=== PATIENT | male | born 1945 | race Caucasian/White ===

== ENCOUNTER 2017-06-08 07:26 | Inpatient (IN) ==
[2017-06-08] MEDS: 0.9 % Sodium Chloride 1,000 ML IVC SCH (07:54)
[2017-06-08] MEDS ORDERED: *HR* Heparin 10,000 UNIT/10 ML VIAL ONE (08:04)
[2017-06-08] MEDS ORDERED: Heparin 1,000 UNITS/500 mL NS 500 ML ONE (08:05)
[2017-06-08] MEDS ORDERED: Nitroglycerin 1,000 MCG/10 ML VIAL IV ONE (08:05)
[2017-06-08] MEDS ORDERED: 0.9 % Sodium Chloride 1,000 ML ONE (08:05)
[2017-06-08] MEDS ORDERED: *HR* Midazolam HCl 2 MG/2 ML VIAL ONE (09:17)
[2017-06-08] MEDS ORDERED: *HR* FentaNYL (PF) 100 MCG/2 ML VIAL ONE (09:17)
--- NOTE | 2017-06-08 09:22 | History & Physical Report ---
Date of Encounter: 06/08/17 Time of Encounter: 09:20 24 Hour HP Update - Instructions Instructions: If the History and Physical is less than 30 days old and was completed prior to A.M. admission and or procedure and has NOT been updated on calendar day of procedure please complete this update prior to performing procedure. - Update Patient reports changes in Medical Condition: No Changes in examination, assessment, or condition: No Changes in Medication: No Preop tests/diagnostics Reviewed: Yes Surgery Remains Indicated: Yes Consent for Planned Operative Procedure(s) Verified: Yes - Pre-Operative Checklist Preoperative Checklist Indicated: No Prophylactic Antibiotic Ordered: No Home Medications Include Beta Olivia: Yes Beta Olivia Taken Today (Day of Surgery): Yes Beta Olivia Taken Yesterday (Day Prior to Surgery): Yes Is VTE Prophylaxis Indicated?: NO
--- NOTE | 2017-06-08 09:22 | Pre-Sedation Evaluation ---
Pre-sedation evaluation - Pre-sedation checklist Date of procedure: 06/08/17 Procedure: left heart cath Recent Vitals: Last Vital Signs Temp 97.6 F 06/08/17 07:39 Pulse 87 06/08/17 07:39 Resp 18 06/08/17 07:39 BP 132/83 06/08/17 07:39 Pulse Ox 98 06/08/17 07:39 H&P (including ROS) documented in medical record: Yes Previous reaction to sedatives/anesthetics: No Dietary Status: NPO after Midnight Airway Assessment: Patient can open mouth completely, TMJ function normal, Micrognathia (under-bite, receding chin) absent, Neck with adequate range of motion Dentition: No loose teeth or bridges Possible difficult airway: No ASA Classification *see protocol: CLASS II-Mild systemic disease Plan of Care: Pt appropriate candidate for procedure/moderate/conscious sedation , Risks/benefits of procedure/sedation discussed w/ patient/family
[2017-06-08] MEDS ORDERED: Acetaminophen 325 MG TABLET PO PRN (10:18)
[2017-06-08] MEDS ORDERED: Nitroglycerin 0.4 MG TAB.SUBL SL PRN (10:18)
--- NOTE | 2017-06-08 11:03 | Cardiothoracic Consult Note ---
Date of Encounter: 06/08/17 Time of Encounter: 10:58 Assessment and Plan (1) Coronary arteriosclerosis due to lipid rich plaque Current Visit: Yes Status: Acute The assessment and plan as outlined above was discussed with the patient and/or family members who expressed understanding and agreement. All questions were answered. The patient has left main disease and triple-vessel disease. He is also in new onset atrial fibrillation. He is a candidate for coronary artery bypass grafting and modified maze procedure with left atrial appendage stapling. Risks of surgery include , infection, stroke, bleeding, myocardial infarction, renal or respiratory failure, clots around the heart, acute or chronic graft closure, recurrent atrial fibrillation, phrenic nerve injury and sternal dehiscence. The procedure, its risks benefits and alternatives were explained and the patient and his wish to proceed. We will check a CT scan of his entire aorta because of possible aneurysm in his abdominal aorta. We will also check a carotid duplex as it is been almost 2 years since his last test. We will tentatively schedule open heart surgery for . He can be on a heparin drip. He should not be restarted on his Xarelto. - History of Present Illness History of present illness: Mr. Posadas is a 72 year old male History of present illness. The patient is a 72-year-old gentleman who does not have a history of myocardial infarction. He did have a positive stress test. He has been having neck and arm pain with exertion, which may represent angina. He also has cervical disc disease. He does have new onset atrial fibrillation. Echocardiogram done in May revealed ejection fraction of 45% with no valvular dysfunction. Cardiac catheterization done today revealed triple vessel disease. He has a 50% left main lesion. The right coronary artery is 100% blocked. It fills by collaterals, but appears to be a small vessel. The LAD has a complex proximal 95-99% block with a good distal vessel. Obtuse marginal branch #2 of the circumflex is 99% blocked, although it appears to be a small vessel. Past medical history is notable for COPD, hypertension and hyperlipidemia. Social history. 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 He continues to smoke one half pack of cigarettes per day AGAINST MEDICAL ADVICE. He drinks 4-5 beers a day. Family history is positive for coronary artery disease. Review of systems is negative for stroke or TIA. He did have a carotid duplex in September 2015 which revealed bilateral 40-59% carotid lesions. No history of saphenous vein varicosities or strippings. Past Med Surg Social Fam HX - Past Medical History Medical history: arthritis, atrial fibrillation, hyperlipidemia, hypertension Psychiatric history: no psych history - Past Surgical History Surgical History: no surgical history - Social History Smoking Status: Current every day smoker Smokeless Tobacco Status: No Alcohol use: occasionally Drug use: none Medications and Allergies Amlodipine/Atorvastatin [Amlodipine-Atorvast 5-40 mg] 1 each PO DAILY 06/08/17 [ History] Aspirin [Lo-Dose Aspirin EC] 81 mg PO DAILY 06/08/17 [History] Lisinopril-HCTZ 20-12.5 [Prinzide 20-12.5] 1 each PO DAILY 06/08/17 [History] Meloxicam [Mobic] 15 mg PO DAILY 06/08/17 [History] Metoprolol XL (24 HR) Succ [Toprol XL] 25 mg PO DAILY 06/08/17 [History] Rivaroxaban [Xarelto] 20 mg PO DAILY 06/08/17 [History] Tizanidine HCl [Zanaflex] 4 mg PO TID 06/08/17 [History] 3 Allergy/AdvReac Type Severity Reaction Status Date / Time No Known Allergies Allergy Verified 04/02/15 18:03 All Systems Review: A 10-system review of systems was performed and is negative for pertinent findings except as documented above in the HPI. Physical Examination Vital Signs, Last 4 Hours Temp Pulse Resp BP Pulse Ox 06/08/17 07:39 97.6 F 87 18 132/83 98 Pupils are equal, round and reactive to light and accommodation. No oral lesions. Neck is supple. Trachea in the midline. He has bilateral carotid bruits. No thyromegaly. Lungs are clear to percussion and auscultation. Heart is in an irregular rate and rhythm. No murmurs, gallops or rubs. Abdomen is benign. No tenderness, rebound or guarding. No hepatosplenomegaly or masses. Extremities without edema. 1+ pulses. No saphenous vein varicosities or strippings. Cranial nerves, motor and sensory intact. Consult Discharge Plan - Plan Referrals: Galen Thurman MD [Primary Care Provider] -
--- NOTE | 2017-06-08 11:10 | Invasive Diagnostic Lab Proc ---
Name: Lance Posadas Date of Study: 06/08/2017 Date: 1945 Ht: 70.0in Medical Record#: [id number] Age: 72 Wt: 177.47lb Gender: Male BSA: 1.98 Order #: [id number] BMI: 25.46 Physicians Procedure Physician: Adri Linares MD, [facility] Referring MD: Galen Thurman MD Referring MD: Staff Name Position Time In Fabiola Sparks RN Pre-Op Nurse Adrianna Portillo RN Pre-Op Nurse Gill Wellington RN Pre-Op Nurse Sherrie Jim RT (R) Monitor 09:20 AM Randi Daniel RT (R) Scrub 09:20 AM Myesha Barajas RN Director Dance 09:21 AM Indications Indication Abnormal Test - Stress Procedures Performed Procedure L HRT ARTERY/VENTRICLE ANGIO Pre-Procedure Checklist Informed consent is complete signed and on chart. H&P is on chart. ID band is on and ID verified with patient. Patient NPO for procedure The procedure was described for the patient and questions were answered. Blood Pressure: 132/83 ECG is on chart. Rhythm: Atrial Fibrillation Plan of Care Patient will tolerate the procedure without complications. Adequate level of comfort will be maintained. Hemodynamics will remain stable Patient will recover from procedure without complications. Respiratory function will be maintained. Cardiac rhythm will remain stable. Patient temperature will be maintained. Patient and/or family have verbalized understanding of the procedure. Patient Education Chief Complaint/Reason for Test: Cardiac Cath Developmental Category: Geriatric (65+ years) Developmentally Appropriate for Age: Yes Learning Barriers: None Education Needs: Procedure Education Method: Verbal Information Taught: Cardiac Cath Educational Evaluation: Able to repeat information Intravenous Access Time IV Size Location DC'd Fluid/Drip Rate Units RN 07:56 AM Started with 20g 1 1/4" Lt Arm 0.9NaCl 50 ml/hr Gill Wellington RN Allergies No Known Allergies Vital Signs Time BP (mmHg) HR (bpm) O2 Sat. RR (bpm) LOC 07:56 AM 132 / 83 87 98 % 18 5 = Fully awake and oriented or at pre-proc level 09:20 AM / % 5 = Fully awake and oriented or at pre-proc level 09:20 AM / % 4 = Oriented but drowsy 09:35 AM / % 4 = Oriented but drowsy 09:17 AM 156 / 111 103 98 % 21 09:21 AM 146 / 107 82 100 % 14 09:26 AM 154 / 98 87 99 % 36 09:31 AM 119 / 80 88 98 % 17 09:36 AM 102 / 72 83 97 % 16 09:41 AM 112 / 72 86 98 % 16 09:46 AM 117 / 72 99 98 % 14 09:51 AM 111 / 75 82 97 % 30 10:00 AM 133 / 76 73 97 % 18 5 = Fully awake and oriented or at pre-proc level 10:15 AM 124 / 85 74 98 % 18 5 = Fully awake and oriented or at pre-proc level 10:30 AM 122 / 109 88 96 % 18 5 = Fully awake and oriented or at pre-proc level 11:03 AM 140 / 83 79 97 % 14 5 = Fully awake and oriented or at pre-proc level Procedural Medications Time Medication Dose Units Method Given By 09:22 AM Versed 2 mg Intravenous Myesha Barajas RN 09:22 AM Fentanyl 50 mcg Intravenous Myesha Barajas RN 09:27 AM Benadryl 25 mg Intravenous Myesha Barajas RN 09:35 AM Lidocaine 2% 18 ml Subcutaneous Adri Linares MD, [facility] ASA Classification: CLASS II- Mild systemic disease (i.e. well-controlled diabetes, hypertension, asthma, cigarette smoking) Cresencio Score Preprocedure Postprocedure Activity 2- Moves 4 extremities sustained head lift Activity 2- Moves 4 extremities sustained head lift Circulation 2- SBP +/= 20 points of pre-anesthetic level Circulation 2- SBP +/= 20 points of pre-anesthetic level Consciousness 2- Awake and alert oriented x 3 Consciousness 2- Awake and alert oriented x 3 O2 Saturation 2- Able to maintain O2 satruation of 92% on room air O2 Saturation 2- Able to maintain O2 satruation of 92% on room air Respiratory 2- Able to deep breathe and cough well Respiratory 2- Able to deep breathe and cough well Total Score 10 Total Score 10 Contrast Agent: Isovue Diagnostic Contrast: 82 ml Total Contrast: 82 ml Fluoro Dose: 229 mGy Procedure Log Time Note Enter By 09:09 AM CathStat 09:15 AM Pt [facility] to [facility] at [facility] 09[facility]15 AM Patient charges- Angio tray pack, Navilyst 3mm J, Pulse Oximetry and ACIST tubing and transducer csmith 09:15 AM Physician arrived 09:15 csmith 09:15 AM Meet and greet completed csmith 09:15 AM Sign in performed according to hospital policy. csmith 09:15 AM Procedure start 09:15 csmith 09:16 AM Vitals capture started with the following parameters, Patient=Adult, Interval=5 min, Initial Hwknxefz=079 mmHg, Deflation Rate=5 mmHg, Cuff placed on Right Arm 09:17 AM LZ=356 bpm, GESP=380/111 mmhg, SpO2=98.0 %, Resp=21 B/min 09:20 AM Time: :20 Patient comfortable and pain free: Yes twilson :20 AM Time: :LOC: 5 = Fully awake and oriented or at pre-proc level twilson :20 AM Sherrie Jim RT (R) Position: Monitor Time in: :20 twilson 09:21 AM Randi Daniel RT (R) Position: Scrub Time in: : twilson 09:21 AM Myesha Barajas RN Position: Director Dance Time in: : twilson 09:21 AM IV Supplies used: J loop Angio Cath. twilson 09:21 AM Case Delayed no twilson : AM Hair removed from procedure site in procedure lab using clippers. Bilateral groin prepped with Chloraprep by Velma Kaplan RN, safety strap applied then patient was draped. Skin intact. twilson :21 AM ASA Class CLASS II- Mild systemic disease (i.e. well-controlled diabetes, hypertension, asthma, cigarette smoking) twilson :21 AM HR=82 bpm, YDUR=101/107 mmhg, CzB0=333.0 %, Resp=14 B/min 09: AM ETCO2 at bedside and placed on patient. twilson :22 AM Time: : Versed 2 mg Intravenous Given by Myesha Barajas RN twilson : AM Time: : Fentanyl 50 mcg Intravenous Given by Myesha Barajas RN twilson 09:23 AM Pressure channel 1 zero failed. 09:23 AM Pressure channel 1 zero failed. 09:23 AM Pressure channel 1 zero failed. 09:23 AM Pressure channel 1 zero failed. :24 AM Pressure channel 1 zeroed. :26 AM HR=87 bpm, NUKB=579/98 mmhg, SpO2=99.0 %, Resp=36 B/min 09:28 AM Time: 09:27 Benadryl 25 mg Intravenous Given by Myesha Barajas RN :30 AM Time out performed according to hospital policy tw 09:31 AM HR=88 bpm, JZPQ=457/80 mmhg, SpO2=98.0 %, Resp=17 B/min 09:35 AM Time: 09:20LOC: 4 = Oriented but drowsy tw:35 AM Time: 09:20 Patient comfortable and pain free: Yes tw:35 AM Time: 09:35 18 ml Lidocaine 2% to right groin Subcutaneous Given by Adri Linares MD, [facility] tw:36 AM Unsuccessful access attempt # 1 into the right Femoral artery. Manual pressure applied to achieve hemostasis.. tw:36 AM Access obtained by percutaneous puncture. 5Fr 10cm Terumo [place] sheath placed in right Femoral artery. [id number] twilson 09:36 AM HR=83 bpm, WHAS=890/72 mmhg, SpO2=97.0 %, Resp=16 B/min 09:37 AM 5Fr FL 4 catheter inserted over the wire DN twilson 09:37 AM Wire removed, intact. twilson 09:37 AM Recorded Pressure: Ao, HR=81, Condition=Condition 1 (Aorta) Ao 97/67/81 09:38 AM LCA angiography performed in multiple views. twilson 09:38 AM Recorded Pressure: Ao, HR=84, Condition=Condition 1 (Aorta) Ao 93/63/78 09:40 AM Wire reinserted and catheter removed, intact. twilson 09:40 AM 5Fr FR 4 catheter inserted over the wire DN twilson 09:41 AM Wire removed, intact. twilson 09:41 AM HR=86 bpm, LQBG=451/72 mmhg, SpO2=98.0 %, Resp=16 B/min 09:42 AM Recorded Pressure: Ao, HR=91, Condition=Condition 1 (Aorta) Ao 98/74/87 09:42 AM RCA angiography performed in multiple views. twilson 09:43 AM Wire reinserted and catheter removed, intact. tw 09:43 AM 5Fr Pigtail catheter inserted over the wire DN twilson 09:45 AM Pressure channel 1 zero failed. 09:45 AM Pressure channel 1 zeroed. 09:45 AM Recorded Pressure: LV, HR=98, Condition=Condition 1 (Left Ventricle) LV 86/19/27 09:45 AM Bolus angiogram of left Ventricle complete: 8 ml/sec for a total of 24 mls twilson 09:45 AM Recorded Pressure: LV, Ao, HR=98, Condition=Condition 1 (Left Ventricle) LV 84/32/41, (Aorta) Ao 90/61/76 09:46 AM Wire reinserted and wire and catheter removed, intact. twilson 09:46 AM HR=99 bpm, TBWK=831/72 mmhg, SpO2=98.0 %, Resp=14 B/min 09:48 AM Procedure completed at 09:48 twilson 09:49 AM Sign out completed: Radiation Dose 228.96 mGy Fluoro Time: 2.8 Isovue 370 - 200ml contrast 82 ml given by Adri Linares MD, [facility]. Complications: NoneCardiac Rehab Consult needed: YesConfirmed administered medications: Yes twilson 09:49 AM Isovue 370 - 200ml,1 Bottle(s) used. twilson 09:49 AM Arterial sheath pulled, Mynx closure device used and was Successful S/N. twilson 09:50 AM Post ECG Atrial Fibrillation twilson 09:50 AM Post Blood Pressure 117/72 twilson 09:50 AM Time: 09:35LOC: 4 = Oriented but drowsy twilson 09:50 AM 09:50 Post Pulses Bilateral DP & PT 2+ twilson 09:50 AM Time: 09:35 Patient comfortable and pain free: Yes twilson 09:50 AM 09:50 Post Pulses Bilateral radial 2+ twilson 09:50 AM Information taught Cardiac Cath and Mynx twilson 09:51 AM Education needs Procedure, Plan of Care, and Responsibilities of Patient in Care twilson 09:51 AM Learning barriers :None twilson 09:51 AM Education Methods Verbal twilson 09:51 AM HR=82 bpm, PORA=299/75 mmhg, SpO2=97.0 %, Resp=30 B/min 09:52 AM Education evaluation Able to repeat information twilson 09:52 AM Site status No bleeding/hematoma - Rt Groin as reported by Randi Daniel RT (R) at 09:52 twilson 09:52 AM Opsite applied twilson 09:52 AM Family placed in consult room. twilson 09:53 AM Cardiothoracic surgeon consulted by physician twilson 09:57 AM Report given to Gill PALM Pt taken to Holding room Room #14. 09:56 twilson 10:00 AM Patient out of room: 10:00 twilson 10:00 AM Coronary Dominance: right twilson 10:01 AM Lesion found in Proximal RCA. Pre Stenosis: 100 Pre KRZYSZTOF Flow: twilson 10:01 AM Right Coronary, Right Posterior Descending Arteries with Right Posterolateral and Acute Marginal branches with 100 % stenosis. If graft is supplying this area, 0 % stenosis twilson 10:01 AM Lesion found in LMCA. Pre Stenosis: 50 Pre KRZYSZTOF Flow: twilson 10:01 AM Lesion found in Proximal LAD. Pre Stenosis: 95 Pre KRZYSZTOF Flow: twilson 10:01 AM Lesion found in Proximal LAD. Pre Stenosis: 99 Pre KRZYSZTOF Flow: twilson 10:01 AM Proximal Left Anterior Descending Coronary Artery with 99% stenosis. If graft is supplying this territory, 0 % stenosis. twilson 10:01 AM Lesion found in Mid LAD. Pre Stenosis: 40 Pre KRZYSZTOF Flow: twilson 10:02 AM Left Main Coronary Artery with 50% stenosis twilson 10:02 AM Mid/Distal Left Anterior Descending Coronary Artery and diagonal branches with 40% stenosis. If graft is supplying this area, 0 % stenosis twilson 10:02 AM Lesion found in Proximal Circumflex. Pre Stenosis: 30 Pre KRZYSZTOF Flow: twilson 10:02 AM Lesion found in Mid Circumflex. Pre Stenosis: 30 Pre KRZYSZTOF Flow: twilson 10:02 AM Lesion found in 1st Marginal. Pre Stenosis: 30 Pre KRZYSZTOF Flow: twilson 10:02 AM Lesion found in 2nd Marginal. Pre Stenosis: 99 Pre KRZYSZTOF Flow: twilson 10:02 AM Circumflex, Obtuse Marginal, Left Posterior Descending, and Left Posterolateral Coronary Arteries with 99 % stenosis. If graft is supplying this area, 0 % stenosis twilson 10:03 AM patient arrive to holding area sds 14 mprater 10:25 AM at bedside talking with patient and spouse scoates 11:02 AM Report given to Charlotte PALM Pt taken to E Room #32. 11:02 rafi 11:02 AM Delay to floor Bed availability rafi 11:03 AM pt taken to room by chay Rn [email or web address] Complications Complication None Hemodynamics Pressures Site Systolic/A Wave Diastolic/V Wave Mean AO 97 67 81 AO 93 63 78 AO 98 74 87 LV 86 19 27 LV 84 32 41 AO 90 61 76 Post Procedure Information Blood Pressure: 117/72 mmHg Rhythm: Atrial Fibrillation Post procedural instructions were given Surgery consult for CABG Closure Device Time Device Success/Fail 06/08/2017 9:50:00 AM MynxGrip Successful Site Checks Time Location Status Staff Sheath In? Note 09:52 AM Rt Groin No bleeding/hematoma Randi Daniel RT (R) 10:00 AM Rt Groin No bleeding/ No Hematoma Gill Wellington RN 10:15 AM Rt Groin No bleeding/ No Hematoma Adrianna Portillo RN 10:30 AM Rt Groin No bleeding/ No Hematoma Adrianna Portillo RN 11:02 AM Rt Groin No bleeding/ No Hematoma Fabiola Sparks RN Pulses Time Site Pre-Procedure Post-Procedure Note 06/08/2017 7:56:00 AM Bilateral DP & PT 2+ 06/08/2017 7:56:00 AM Bilateral radial 2+ 9:50:00 AM Bilateral DP & PT 2+ 9:50:00 AM Bilateral radial 2+ 06/08/2017 10:00:00 AM Bilateral DP & PT 2+ 06/08/2017 10:15:00 AM Bilateral DP & PT 2+ 06/08/2017 10:30:00 AM Bilateral DP & PT 2+ 06/08/2017 11:03:00 AM Bilateral DP & PT 2+ Updated by Fabiola Sparks RN on 06/08/2017 11:03:56 AM electronically signed on 06/08/2017 11:04:45 AM with status of Final
[2017-06-08] MEDS ORDERED: CeFAZolin Syr 2,000MG/20 ML 2,000 MG/20 ML SYRINGE IVPB ONE (11:11)
[2017-06-08 12:28] LABS: Hematocrit 41.3 % (37.5-50.1); Hemoglobin 13.9 g/dL (12.9-16.9); Mean Corpuscular HGB Conc 33.7 g/dL (31.6-35.5); Mean Corpuscular Hemoglobin 31.7 pg (28.0-33.3); Mean Corpuscular Volume 94.3 fL (83.0-100.0); Mean Platelet Volume 9.6 fL (9.4-12.4); Platelet Count 254 K/mcL (140-400); Red Blood Count 4.38 M/mcL (4.19-5.50); Red Cell Distribution Width 12.6 % (11.5-14.5); Segmented Neutrophils % 67.9 %
[2017-06-08 12:29] LABS: Basophils % 0.2 %; Eosinophils # 0.1 K/mcL (0.0-0.6); Eosinophils % 1.4 %; Immature Granulocytes % 0.4 % (0-4); Lymphocytes % 24.9 %; Monocytes # 0.4 K/mcL (0.0-1.3); Monocytes % 5.2 %; Neutrophils # 5.4 K/mcL (1.6-8.9)
[2017-06-08 12:44] LABS: INR 1.1; Prothrombin Time 11.8 Seconds (9.4-12.1)
[2017-06-08 12:47] LABS: BUN/Creatinine Ratio 16 (6-26); Blood Urea Nitrogen 17 mg/dL (8-26); Carbon Dioxide 27 mEq/L (19-29); Chloride 105 mEq/L (98-109); Potassium 4.3 mEq/L (3.5-4.5); Sodium 141 mEq/L (136-145); eGFR For African Americans > 60 (> 60)
[2017-06-08 12:48] LABS: Calcium 9.7 mg/dL (8.6-10.8); Chol/HDL Ratio 3.6 (0-4.9); Cholesterol 146 mg/dL (< 200); Glucose 183 mg/dL (70-99); HDL Cholesterol 41 mg/dL (40-59); LDL Cholesterol,Calculated 88 mg/dL (0-99); Osmolality,Calculated 298 (280-300); Triglycerides 85 mg/dL (< 150); eGFR For Non-African Americans > 60 (> 60)
[2017-06-08] MEDS ORDERED: *HR* Heparin 5,000 UNIT/ML VIAL IVP PRN ×2 (14:08)
[2017-06-08] MEDS: tiZANidine 4 MG TABLET PO SCH ×2 (14:32→22:28)
[2017-06-08 16:51] LABS: Bilirubin,Urine Negative (Negative); Blood,Urine Small (Negative); Clarity,Urine Clear (Clear); Color,Urine Yellow (Yellow); Glucose,Urine (UA) Normal (Normal); Ketones,Urine Negative (Negative); Leukocyte Esterase,Urine Negative (Negative); Nitrite,Urine Negative (Negative); Protein,Urine Negative (Neg-Trace); Specific Gravity,Urine 1.015 (1.010-1.025); Urobilinogen,Urine Normal (Normal)
[2017-06-08] MEDS: Heparin 25,000 UNIT/500 ML D5W 25,000 UNIT/500 ML MLS IVC SCH (16:55)
[2017-06-08 17:40] LABS: RBC,Urine 0-3 per hpf (0-3); Squamous Epithelial Cell,Urine Few per lpf (None-Few)
[2017-06-09 05:23] LABS: Basophils % 0.2 %; Eosinophils # 0.2 K/mcL (0.0-0.6); Eosinophils % 1.6 %; Hematocrit 39.9 % (37.5-50.1); Hemoglobin 13.5 g/dL (12.9-16.9); Immature Granulocytes % 0.4 % (0-4); Lymphocytes # 3.2 K/mcL (0.6-4.6); Lymphocytes % 27.2 %; Mean Corpuscular HGB Conc 33.8 g/dL (31.6-35.5); Mean Corpuscular Hemoglobin 31.9 pg (28.0-33.3); Mean Corpuscular Volume 94.3 fL (83.0-100.0); Mean Platelet Volume 9.8 fL (9.4-12.4); Monocytes % 8.9 %; Neutrophils # 7.2 K/mcL (1.6-8.9); Platelet Count 237 K/mcL (140-400); Red Blood Count 4.23 M/mcL (4.19-5.50); Red Cell Distribution Width 12.7 % (11.5-14.5); Segmented Neutrophils % 61.7 %
[2017-06-09 05:46] LABS: BUN/Creatinine Ratio 21 (6-26); Blood Urea Nitrogen 19 mg/dL (8-26); Calcium 10.1 mg/dL (8.6-10.8); Carbon Dioxide 25 mEq/L (19-29); Chloride 109 mEq/L (98-109); Glucose 102 mg/dL (70-99); Osmolality,Calculated 294 (280-300); Potassium 4.4 mEq/L (3.5-4.5); Sodium 141 mEq/L (136-145); eGFR For African Americans > 60 (> 60); eGFR For Non-African Americans > 60 (> 60)
[2017-06-09] MEDS: Isosorbide MONOnitrate (24 HR) 30 MG TAB.ER.24H PO SCH (08:46)
[2017-06-09] MEDS: Lisinopril-HCTZ 20-12.5mg TABLET PO SCH (08:46)
[2017-06-09] MEDS: Aspirin Enteric Coated 81 MG Tablet PO SCH (08:47)
[2017-06-09] MEDS: Metoprolol XL (24 HR) Succ 25 MG TAB.ER.24H PO SCH (08:47)
[2017-06-09] MEDS: tiZANidine 4 MG TABLET PO SCH ×3 (08:47→22:40)
[2017-06-09] MEDS: amLODIPine 5 MG TABLET PO SCH (08:47)
--- NOTE | 2017-06-09 08:50 | Cardiothoracic Progress Note ---
Date of Encounter: 06/09/17 Time of Encounter: 08:47 - Assessment and plan (1) Coronary arteriosclerosis due to lipid rich plaque Current Visit: Yes Status: Acute The thoracic aorta was not well seen on the CT angiogram of the abdominal aorta. I will order a CT angiogram of the chest today to assess this. The patient is scheduled for open heart surgery tomorrow. Operative consent was obtained. The procedure, its risks, benefits and alternatives were explained and he wishes to proceed. He has no further questions. - Subjective Interval history: The patient has no complaints. He has had no chest pain on a heparin drip. Vital Signs, Last 4 Hours Temp Pulse Resp BP Pulse Ox 06/09/17 06:46 97.9 F 94 18 151/95 97 Clinical Data, last 8 Hours Output, Urine Amount 600 Weight 06/07/17 06/08/17 06/09/17 23:59 23:59 23:59 Weight 80.286 kg 77.6 kg Lungs are clear to percussion and auscultation. Heart is in an irregular rate and rhythm. He is in atrial fibrillation with a heart rate of 120. Carotid ultrasound revealed a 40-59% left carotid lesion and nonstenotic plaque in the right carotid artery. The abdominal CT angiogram revealed a 4.5 cm abdominal aortic aneurysm. - Labs 06/09/17 04:48 06/09/17 04:48 Lab Results, Last 24 hours 06/08/17 06/08/17 06/08/17 12:06 12:06 12:06 WBC 8.0 Hgb 13.9 Hct 41.3 Plt Count 254 INR 1.1 APTT 31.0 Sodium 141 Potassium 4.3 Chloride 105 Carbon Dioxide 27 BUN 17 Creatinine 1.07 Glucose 183 H Calcium 9.7 06/08/17 06/09/17 06/09/17 22:52 04:48 04:48 WBC 11.6 H Hgb 13.5 Hct 39.9 Plt Count 237 INR APTT 78.7 H D Sodium 141 Potassium 4.4 Chloride 109 Carbon Dioxide 25 BUN 19 Creatinine 0.90 Glucose 102 H Calcium 10.1 06/09/17 04:48 WBC Hgb Hct Plt Count INR APTT 97.1 H Sodium Potassium Chloride Carbon Dioxide BUN Creatinine Glucose Calcium - VTE Reasons for not Prescribing Prophylaxis: Not indicated-Anticoagulated or INR therapeutic Consult Discharge Plan - Plan Referrals: Galen Thurman MD [Primary Care Provider] -
--- NOTE | 2017-06-09 12:32 | Event Note ---
Date of Encounter: 06/09/17 Time of Encounter: 12:28 The patient was found to have a 4.5 cm abdominal aortic aneurysm on CT angiogram. He also had several liver lesions, one of which was quite large. I reviewed this with the radiologist. He felt that this was most likely a hemangioma, but that a MRI of the liver was needed to be certain. I did order a CT scan of the chest to evaluate the thoracic aorta. This shows a noncalcified right lower lobe lesion that is worrisome for lung cancer. There is also some hilar and mediastinal adenopathy. I reviewed this with the radiologist. They can do needle biopsy of this lesion tomorrow. We will keep the patient nothing by mouth past midnight and discontinue his heparin drip at 0500.
--- NOTE | 2017-06-09 13:55 | Cardiology Progress Note ---
Date of Encounter: 06/09/17 Time of Encounter: 13:52 Assessment and Plan (1) CAD (coronary artery disease) Current Visit: Yes Status: Acute Per cardiology: -LHC with Recommended for CABG.50% left main, 95% ostial LAD, 99% proximal LAD heavily calcified, 40% mid LAD, 30% proximal circumflex, 30% mid circumlfex, 30 % om 1, 99% ostial OM2, 100% ostial RCA heavily calcified RPDA and RPL fills via left to right collaterals -Recommended for CABG. CT surgery following. -TTE 05/18/17 with LVEF 45%, moderate concentric LVH, mild to moderately dilated left atrium, mid inferior, basal inferior, mid inferior septal and basal inferior septal murillo hypokinetic. All other wall segments with normal motion. -ON asa, statin, beta delilah, imdur, lilo. -Currently on heparin drip. -Denies chest pain. -Further recommendations pending biopsy tomorrow, see below. Qualifiers: Coronary Disease-Associated Artery/Lesion type: [place] artery [place] vs. transplanted heart: [place] heart Associated angina: without angina Qualified Code(s): I25.10 - Atherosclerotic heart disease of [place] coronary artery without angina pectoris (2) Lung nodule Current Visit: Yes Status: Acute Per cardiology: -CTA chest performed and noted to have RLL lung nodule measuring [id number], concerning for malignancy. -Will have needle biopsy tomorrow with IR. -Heparin drip off at 0500. (3) Liver lesion Current Visit: Yes Status: Acute Per cardiology: -CT with 4.5cm liver lesion noted. -Further recommendations pending biopsy tomorrow. (4) AAA (abdominal aortic aneurysm) Current Visit: Yes Status: Acute Per cardiology: -CTA with 4.5cm AAA. -Vascular surgery has been consulted. -Management per vascular surgery. Qualifiers: Presence of rupture: without rupture Qualified Code(s): I71.4 - Abdominal aortic aneurysm, without rupture (5) Atrial fibrillation Current Visit: Yes Status: Acute Per cardiology: -Recently diagnoses with atrial fibrillation. -On beta delilah. -Hr controlled. -On xarelto in outpatient setting. -Currently on heparin drip. -Will continue to monitor. Qualifiers: Atrial fibrillation type: unspecified Qualified Code(s): I48.91 - Unspecified atrial fibrillation Discussion w patient/family: The assessment and plan as outlined above was discussed with the patient and/or family members who expressed understanding and agreement. All questions were answered. Thank you for involving us in the care of your patient. Please call with any questions. Discussed and reviewed with . Subjective Principal diagnosis: CAD Interval history: Patient denies chest pain or shortness of breath. Objective Vital Signs, Last 4 Hours Temp Pulse Resp BP Pulse Ox 06/09/17 11:09 97.8 F 86 14 106/73 97 General: Conversant, No Apparent Distress HEENT: Atraumatic, Normocephaly, Mucus Membranes Moist Neck: No JVD, Normal carotid pulses Cardiac: Reg Rate and Rhythm, Normal S1 and S2, No Murmur Lungs: Normal Breath Sounds, No Wheeze, Rales, Rhonchi Neuro: Alert and responsive, No focal deficits noted Abdomen: Soft, Non-Tender Skin: No rashes noted on visualized skin Musculoskeletal: No Chest Wall Tenderness Extremities: No Clubbing, No Cyanosis, No Edema, Normal Pulses Results 06/09/17 04:48 06/09/17 04:48 Lab Results Impressions Aorta w/Runoff CTA 06/08/17 17:30 IMPRESSION: There is fusiform aneurysmal dilatation infrarenal abdominal aorta 4.5 cm. Six-month follow-up with vascular surgery consultation recommended. There are indeterminate low-attenuation lesions within the liver. Liver protocol MR recommended for further evaluation. Mild bilateral inflow, outflow, and runoff disease. There is 2 vessel runoff to the right foot and three-vessel runoff to the left foot. Managing Abdominal Aortic Aneurysms 2.6-2.9 cm: Every 5 years* 3.0-3.4 cm: Every 3 years. 3.5-3.9 cm: Every 1 year. 4.0-4.4 cm: Every 1 year. Recommend vascular consultation. 4.5-5.4 cm: Every 6 months. Recommend vascular consultation. Greater than or equal to 5.5 cm: Referral to vascular surgeon. *For abdominal aortas with maximum diameter of 2.6-2.9 cm meeting criteria for AAA (>50% of proximal normal segment). Reference: J Vasc Surg. 2009 May;50(4 Suppl):S2-49 D/ / Velma St MD / Velma St MD Interpreting Provider: Velma St MD Chest CTA 06/09/17 08:52 IMPRESSION: 1. Right lower lobe pulmonary nodule with spiculated margins measuring 15 x 14 mm, concerning for primary lung malignancy. Further evaluation with dedicated PET/CT and/or tissue sampling is recommended. 2. No aneurysmal dilatation of the thoracic aorta. 3. Indeterminate liver lesion in segment 3 measuring 5.1 x 4.5 cm. Dedicated MRI liver with Gadavist is recommended for further evaluation. 4. Severe coronary artery atherosclerosis. D/ / 06/09/2017 11:03:27 Adrianna Nichols MD / Sherron Butler Interpreting Provider: Adrianna Nichols MD Active Medications Acetaminophen (Tylenol) 650 mg PO Q6HR PRN PRN Reason: Mild Pain Stop: 12/08/17 10:19 Hydrocodone Bitart/Acetaminophen ([place] 5-325 Mg) 1 tab PO Q4HR PRN PRN Reason: Moderate Pain Stop: 12/08/17 10:19 Amlodipine Besylate (Norvasc) 5 mg PO DAILY [facility] PRN Reason: Protocol Stop: 12/09/17 09:01 Last Admin: 06/09/17 08:47 Dose: 5 mg Aspirin (Aspirin Ec) 81 mg PO DAILY [facility] Stop: 12/09/17 09:01 Last Admin: 06/09/17 08:47 Dose: 81 mg Atorvastatin Calcium (Lipitor) 80 mg PO HS [facility] Stop: 12/08/17 21:01 Last Admin: 06/08/17 22:28 Dose: 80 mg Chlorhexidine Gluconate (Chlorhexidine Rinse) 15 ml MM BID [facility] Stop: 06/10/17 09:01 Lisinopril/HCTZ (Prinzide 20-12.5) 1 each PO DAILY [facility] Stop: 12/09/17 09:01 Last Admin: 06/09/17 08:46 Dose: 1 each Heparin Sodium (Porcine) (Heparin) 5,600 unit 70 unit/kg (5600 unit) IVP Q6HR PRN PRN Reason: SEE COMMENTS Stop: 06/10/17 05:00 Heparin Sodium (Porcine) (Heparin) 2,800 unit 35 unit/kg (2800 unit) IVP Q6H PRN PRN Reason: SEE COMMENTS Stop: 06/10/17 05:00 Sodium Chloride (0.9 % Sodium Chloride) 1,000 mls @ 50 mls/hr IVC .Q20H [facility] Stop: 12/08/17 07:46 Last Admin: 06/08/17 07:54 Dose: 50 mls/hr Heparin Sodium/Dextrose (Heparin 25,000 Unit/500 Ml D5w) 25,000 unit in 500 mls @ 22.48 mls/hr IVC .[id number] [facility]; 14 UNIT/KG/HR PRN Reason: Protocol Stop: 06/10/17 05:00 Last Titration: 06/09/17 07:28 Dose: 12.14 unit/kg/hr, 19.5 mls/hr Cefazolin Sodium (Ancef Syringe 2,000 Mg/20 Ml) 2,000 mg in 20 mls @ 200 mls/ hr IVPB PREOP ONE Stop: 06/10/17 05:05 Isosorbide Mononitrate (Imdur) 30 mg PO DAILY [facility] Stop: 12/09/17 09:01 Last Admin: 06/09/17 08:46 Dose: 30 mg Metoprolol Succinate (Toprol Xl) 25 mg PO DAILY [facility] Stop: 12/09/17 09:01 Last Admin: 06/09/17 08:47 Dose: 25 mg Nitroglycerin (Nitroglycerin) 0.4 mg SL Q5MIN PRN PRN Reason: Chest Pain Stop: 12/08/17 10:19 Tizanidine HCl (Zanaflex) 4 mg PO TID [facility] Stop: 12/08/17 15:01 Last Admin: 06/09/17 08:47 Dose: 4 mg Laboratory Tests 06/09/17 06/09/17 04:48 04:48 WBC 11.6 H Hgb 13.5 Creatinine 0.90 - Imaging and Cardiology Chest Xray: report reviewed Stress Test: report reviewed Echo: report reviewed Cardiac cath: report reviewed - EKG Interpretation EKG results cardiology: other (Telemetry reviewed with average HR previous 12 hours noted to be 90, atrial fibrillation. PVCs noted.) - VTE Reasons for not Prescribing Prophylaxis: Not indicated-Anticoagulated or INR therapeutic Consult Discharge Plan - Plan Referrals: Galen Thurman MD [Primary Care Provider] -
[2017-06-09] MEDS ORDERED: Chlorhexidine Rinse 15 ML MOUTHWASH MM SCH (21:00)
[2017-06-10] MEDS ORDERED: CeFAZolin Syr 2,000MG/20 ML 2,000 MG/20 ML SYRINGE IVPB ONE ×2 (05:00→12:32)
[2017-06-10] MEDS: Lisinopril-HCTZ 20-12.5mg TABLET PO SCH (08:35)
[2017-06-10] MEDS: Isosorbide MONOnitrate (24 HR) 30 MG TAB.ER.24H PO SCH (08:35)
[2017-06-10] MEDS: amLODIPine 5 MG TABLET PO SCH (08:36)
[2017-06-10] MEDS: tiZANidine 4 MG TABLET PO SCH ×3 (08:36→20:53)
[2017-06-10] MEDS: Metoprolol XL (24 HR) Succ 25 MG TAB.ER.24H PO SCH (08:36)
--- NOTE | 2017-06-10 08:41 | Cardiothoracic Progress Note ---
Date of Encounter: 06/10/17 Time of Encounter: 08:37 - Assessment and plan (1) Coronary arteriosclerosis due to lipid rich plaque Current Visit: Yes Status: Acute I reviewed the CT scans of the abdomen and chest with radiology. The lesion in the right lower lobe of the lung is spiculated and noncalcified and very worrisome for cancer. He is due to get a CT-guided needle biopsy today. CT scan of the abdomen does reveal several large lesions in his liver. These appear to be benign and may represent a hemangioma. He needs a MRI of the liver for definitive workup. If the lesion in his lung is cancer, he will also eventually need a PET scan to rule out distant metastatic disease. He does have some mediastinal and hilar adenopathy and would also require bronchoscopy EBUS. - Subjective Interval history: The patient has no complaints and no chest pain. Vital Signs, Last 4 Hours Pulse Resp BP Pulse Ox 06/10/17 05:23 107 16 128/96 94 Weight 06/08/17 06/09/17 06/10/17 23:59 23:59 23:59 Weight 80.286 kg 77.6 kg 75.4 kg Lungs are clear to percussion and auscultation. Heart is in an irregular rate and rhythm. He is in atrial fibrillation. - Labs 06/09/17 04:48 06/09/17 04:48 Lab Results, Last 24 hours 06/09/17 06/09/17 13:26 20:15 APTT 77.8 H 61.6 H - VTE Reasons for not Prescribing Prophylaxis: Not indicated-Anticoagulated or INR therapeutic Consult Discharge Plan - Plan Referrals: Galen Thurman MD [Primary Care Provider] -
[2017-06-10] MEDS ORDERED: *HR* Midazolam HCl 2 MG/2 ML VIAL IVP ONE (08:49)
[2017-06-10] MEDS ORDERED: *HR* FentaNYL (PF) 100 MCG/2 ML VIAL IVP ONE (08:49)
--- NOTE | 2017-06-10 09:02 | Cardiology Progress Note ---
Date of Encounter: 06/10/17 Time of Encounter: 08:55 Assessment and Plan (1) CAD (coronary artery disease) Current Visit: Yes Status: Acute Per Cardiology: S/p LHC-- 50% left main, 95% ostial LAD, 99% proximal LAD heavily calcified, 40 % mid LAD, 30% proximal circumflex, 30% mid circumlfex, 30% om 1, 99% ostial OM2 , 100% ostial RCA heavily calcified RPDA and RPL fills via left to right collaterals. Recommended for CABG. TTE 05/18/17 with LVEF 45%, moderate concentric LVH, mild to moderately dilated left atrium, mid inferior, basal inferior, mid inferior septal and basal inferior septal murillo hypokinetic, NSW[place]. CT surgery following. Patient status post lung biopsy with preliminary results showing non-small cell lung cancer per discussion with Dr. Arturo Sunshine. Patient and family aware. Discussed and reviewed films with Dr. Sunshine and Dr. Yuen. Plan for CABG tomorrow. We'll resume heparin drip. We'll discontinue SERA inhibitor for bypass. Titrate beta delilah. On asa, statin, beta delilah, imdur. Atypical CP today s/p lung biopsy-- will monitor. Qualifiers: Coronary Disease-Associated Artery/Lesion type: [place] artery [place] vs. transplanted heart: [place] heart Associated angina: without angina Qualified Code(s): I25.10 - Atherosclerotic heart disease of [place] coronary artery without angina pectoris (2) Lung nodule Current Visit: Yes Status: Acute Per cardiology: CTA chest performed and noted to have RLL lung nodule measuring [id number], concerning for malignancy. As above, will c/s Oncology. (3) Liver lesion Current Visit: Yes Status: Acute Per cardiology: CT with 4.5cm liver lesion noted. Will consult Oncology. (4) AAA (abdominal aortic aneurysm) Current Visit: Yes Status: Acute Per cardiology: CTA with 4.5cm AAA. Vascular surgery has been consulted. Management per vascular surgery. Qualifiers: Presence of rupture: without rupture Qualified Code(s): I71.4 - Abdominal aortic aneurysm, without rupture (5) Atrial fibrillation Current Visit: Yes Status: Acute Per cardiology: Recently diagnoses with atrial fibrillation. On beta delilah. Hr controlled. On xarelto in outpatient setting-- on hold. Will resume heparin drip per discussion with Dr. Yuen, Dr. Sunshine, and IR. Possible MAZE with CABG. Qualifiers: Atrial fibrillation type: unspecified Qualified Code(s): I48.91 - Unspecified atrial fibrillation Discussion w patient/family: The assessment and plan as outlined above was discussed with the patient and/or family members who expressed understanding and agreement. All questions were answered. Thank you for involving us in the care of your patient. Please call with any questions. Subjective Principal diagnosis: CAD Interval history: Patient denies any chest pain overnight. Patient initially to be seen this morning however off floor for lung biopsy. Upon his return reported some right neck and upper chest soreness worse with deep inspiration "from laying flat from procedure ". He denies any palpitations or shortness of breath. Denies any bleeding or blood loss. Objective Vital Signs, Last 4 Hours Pulse Resp BP Pulse Ox 06/10/17 05:23 107 16 128/96 94 General: Conversant, No Apparent Distress HEENT: Atraumatic, Normocephaly, Mucus Membranes Moist Neck: No JVD, Normal carotid pulses Cardiac: Reg Rate and Rhythm, Normal S1 and S2, No Murmur Lungs: Normal Breath Sounds, No Wheeze, Rales, Rhonchi Neuro: Alert and responsive, No focal deficits noted Abdomen: Soft, Non-Tender Skin: No rashes noted on visualized skin, Other (Right groin site drain intact, no hematoma, no ecchymosis, no bleeding, right dorsalis pedis and posterior tibial pulses 2+ palpable) Musculoskeletal: No Chest Wall Tenderness, Other (Right upper chest wall soreness with deep inspiration) Extremities: No Clubbing, No Cyanosis, No Edema, Normal Pulses Results 06/09/17 04:48 06/09/17 04:48 Lab Results ITS Impressions Chest X-Ray 06/08/17 11:11 IMPRESSION: Mild cardiomegaly. No acute pulmonary disease D/ / Mariano Garcia MD / Mariano Garcia MD Interpreting Provider: Mariano Garcia MD Aorta w/Runoff CTA 06/08/17 17:30 IMPRESSION: There is fusiform aneurysmal dilatation infrarenal abdominal aorta 4.5 cm. Six-month follow-up with vascular surgery consultation recommended. There are indeterminate low-attenuation lesions within the liver. Liver protocol MR recommended for further evaluation. Mild bilateral inflow, outflow, and runoff disease. There is 2 vessel runoff to the right foot and three-vessel runoff to the left foot. Managing Abdominal Aortic Aneurysms 2.6-2.9 cm: Every 5 years* 3.0-3.4 cm: Every 3 years. 3.5-3.9 cm: Every 1 year. 4.0-4.4 cm: Every 1 year. Recommend vascular consultation. 4.5-5.4 cm: Every 6 months. Recommend vascular consultation. Greater than or equal to 5.5 cm: Referral to vascular surgeon. *For abdominal aortas with maximum diameter of 2.6-2.9 cm meeting criteria for AAA (>50% of proximal normal segment). Reference: J Vasc Surg. 2009 May;50(4 Suppl):S2-49 D/ / Velma St MD / Velma St MD Interpreting Provider: Velma St MD Chest CTA 06/09/17 08:52 IMPRESSION: 1. Right lower lobe pulmonary nodule with spiculated margins measuring 15 x 14 mm, concerning for primary lung malignancy. Further evaluation with dedicated PET/CT and/or tissue sampling is recommended. 2. No aneurysmal dilatation of the thoracic aorta. 3. Indeterminate liver lesion in segment 3 measuring 5.1 x 4.5 cm. Dedicated MRI liver with Gadavist is recommended for further evaluation. 4. Severe coronary artery atherosclerosis. D/ / 06/09/2017 11:03:27 Adrianna Nichols MD / Sherron Butler Interpreting Provider: Adrianna Nichols MD Active Medications Acetaminophen (Tylenol) 650 mg PO Q6HR PRN PRN Reason: Mild Pain Stop: 12/08/17 10:19 Hydrocodone Bitart/Acetaminophen ([place] 5-325 Mg) 1 tab PO Q4HR PRN PRN Reason: Moderate Pain Stop: 12/08/17 10:19 Amlodipine Besylate (Norvasc) 5 mg PO DAILY [facility] PRN Reason: Protocol Stop: 12/09/17 09:01 Last Admin: 06/10/17 08:36 Dose: 5 mg Aspirin (Aspirin Ec) 81 mg PO DAILY [facility] Stop: 12/09/17 09:01 Last Admin: 06/09/17 08:47 Dose: 81 mg Atorvastatin Calcium (Lipitor) 80 mg PO HS [facility] Stop: 12/08/17 21:01 Last Admin: 06/09/17 22:40 Dose: 80 mg Chlorhexidine Gluconate (Chlorhexidine Rinse) 15 ml MM BID [facility] Lisinopril/HCTZ (Prinzide 20-12.5) 1 each PO DAILY [facility] Stop: 12/09/17 09:01 Last Admin: 06/10/17 08:35 Dose: 1 each Sodium Chloride (0.9 % Sodium Chloride) 1,000 mls @ 50 mls/hr IVC .Q20H [facility] Stop: 12/08/17 07:46 Last Admin: 06/08/17 07:54 Dose: 50 mls/hr Isosorbide Mononitrate (Imdur) 30 mg PO DAILY [facility] Stop: 12/09/17 09:01 Last Admin: 06/10/17 08:35 Dose: 30 mg Metoprolol Succinate (Toprol Xl) 25 mg PO DAILY [facility] Stop: 12/09/17 09:01 Last Admin: 06/10/17 08:36 Dose: 25 mg Nitroglycerin (Nitroglycerin) 0.4 mg SL Q5MIN PRN PRN Reason: Chest Pain Stop: 12/08/17 10:19 Tizanidine HCl (Zanaflex) 4 mg PO TID [facility] Stop: 12/08/17 15:01 Last Admin: 06/10/17 08:36 Dose: 4 mg - Imaging and Cardiology Echo: report reviewed Cardiac cath: report reviewed - EKG Interpretation EKG results cardiology: other (Tele shows avg HR 92, afib) - VTE Reasons for not Prescribing Prophylaxis: Not indicated-Anticoagulated or INR therapeutic Consult Discharge Plan - Plan Referrals: Galen Thurman MD [Primary Care Provider] -
[2017-06-10] MEDS ORDERED: 0.9 % Sodium Chloride 500 ML ONE (09:05)
--- NOTE | 2017-06-10 09:38 | IR Procedure Note ---
Date of procedure: 06/10/17 Consent Obtained: Written consent Timeout: Correct patient and procedure verified, Correct site verified, Time out performed, Skin prep completed Local anesthetic: Lidocaine 1% Indications: RLL lung nodule Procedure Performed: CT biopsy Site/Technique: 4 cores obtained. Results/Findings: Lesional material per path. Tolerated well. No ptx. Estimated blood loss (cc): 1 Post Procedure Treatment Plan: CXR ordered. Monitoring in pts room
--- NOTE | 2017-06-10 10:14 | Anesthesia Evaluation PreOp ---
Date of Encounter: 06/11/17 Time of Encounter: 07:23 - Past History Planned Operation: CABG, modified MAZE Cardiac History: HTN, Hyperlipidemia, Arrhythmia (a-fib), Other (CAD) Pulmonary History: Smoker, COPD, Other (Has lung lesion suspicious for lung CA, having biopsy by IR) COUNSELING CASE MANAGER History: Denies Any Significant HX Other Medical History: Hepatic (Liver lesions noted on CT of Abdomen, suspect hemangiomas) Anesthesia History: No Prior Anesthetic Complications, Past Anesthesia Alcohol Use: occasionally Drug use: none Medications and Allergies Amlodipine/Atorvastatin [Amlodipine-Atorvast 5-40 mg] 1 each PO DAILY 06/08/17 [ History] Aspirin [Lo-Dose Aspirin EC] 81 mg PO DAILY 06/08/17 [History] Lisinopril-HCTZ 20-12.5 [Prinzide 20-12.5] 1 each PO DAILY 06/08/17 [History] Meloxicam [Mobic] 15 mg PO DAILY 06/08/17 [History] Metoprolol XL (24 HR) Succ [Toprol XL] 25 mg PO BID 06/08/17 [History] Rivaroxaban [Xarelto] 20 mg PO DAILY 06/08/17 [History] Tizanidine HCl [Zanaflex] 4 mg PO TID PRN 06/08/17 [History] 3 Allergy/AdvReac Type Severity Reaction Status Date / Time No Known Allergies Allergy Verified 04/02/15 18:03 - Meds/Allergy Pre-op Review Medications Reviewed: Yes Allergies Reviewed: Yes Beta Blockers on Current Med List: Yes Anesthesia Results - Labs 06/10/17 12:58 06/09/17 04:48 - Imaging Additional studies: echo: LVEF 45%. Normal LV chamber size and function. Moderate concentric left ventricular hypertrophy. Mild segmental left ventricular systolic dysfunction. Indeterminate diastolic function. Normal right ventricular structure and function. Mild to moderately dilated left atrium. No evidence of pulmonary hypertension. No significant valvular dysfunction. stress test: Atrial fibrillation, left ventricular hypertrophy and ST-T changes throughout the study. Pharmacological ECG is non-diagnostic for ischemia due to baseline ST-T changes. Gated EF = 49%. There is a medium sized, moderate intensity, primarily fixed defect involving the basal to mid inferior and inferoseptal segments suggestive of a prior infarct. There is a small sized, mild intensity, partially reversible inferolateral defect suggestive of ischemia. Carotid: mpressions: Findings: Right carotid system has nonstenotic plaque. Findings: Left proximal ICA has a moderate, 40-59% stenosis. Cath: Triple vessel coronary artery disease. There is moderate LV Dysfunction EF 45% Anesthesia Exam Selected Entries 06/10/17 22:55 06/11/17 04:00 Temperature 98.5 F Pulse Rate 96 Respiratory Rate 17 Blood Pressure 136/95 O2 Sat by Pulse Oximetry 97 Weight: 76kg NPO (# of Hours): 8 - HEENT Pupil (Motor): EOMI Mallampati: II Teeth: Missing, Poor dentition Oral Opening: Greater than 3 - COUNSELING CASE MANAGER LOC: Oriented COUNSELING CASE MANAGER Motor: Normal RUE, Normal LUE, Normal RLE, Normal LLE, Normal Face COUNSELING CASE MANAGER Sensory: Normal: RUE, LUE, RLE, LLE, Face - Cardiac Rhythm: Irregular Murmur: None - Pulmonary Breath Sounds: bilateral Clear Respiratory Effort: Symmetrical Anesthesia Assess/Plan ASA Score: 4 Modified [place] Scale for Level of Consciousness: Cooperative, oriented, and tranquil Anesthetic Plan: General Monitoring Plan: Standard Monitors, A-Line, PAC, SHREYAS Recovery Plan: ICU (Discussed risks of GA, lines, SHREYAS and blodd products. Agrees to proceed)
[2017-06-10] MEDS: 0.9 % Sodium Chloride 1,000 ML IVC SCH ×2 (11:23→11:24)
[2017-06-10] MEDS: Heparin 25,000 UNIT/500 ML D5W 25,000 UNIT/500 ML MLS IVC SCH (11:24)
[2017-06-10] MEDS ORDERED: Metoprolol XL (24 HR) Succ 25 MG TAB.ER.24H PO ONE (11:55)
[2017-06-10] MEDS ORDERED: *HR* Heparin 5,000 UNIT/ML VIAL IVP PRN ×2 (12:41)
[2017-06-10] MEDS ORDERED: *HR* Heparin 5,000 UNIT/ML VIAL IVP ONE (12:41)
[2017-06-10] MEDS ORDERED: Heparin 25,000 UNIT/500 ML D5W 25,000 UNIT/500 ML MLS IVC SCH (12:45)
[2017-06-10 13:17] LABS: Hematocrit 41.2 % (37.5-50.1); Hemoglobin 13.8 g/dL (12.9-16.9); Mean Corpuscular HGB Conc 33.5 g/dL (31.6-35.5); Mean Corpuscular Hemoglobin 31.9 pg (28.0-33.3); Mean Corpuscular Volume 95.2 fL (83.0-100.0); Mean Platelet Volume 9.3 fL (9.4-12.4); Platelet Count 249 K/mcL (140-400); Red Blood Count 4.33 M/mcL (4.19-5.50); Red Cell Distribution Width 12.7 % (11.5-14.5)
--- NOTE | 2017-06-10 13:17 | Oncology Inp Consult Note ---
Date of Encounter: 06/10/17 Time of Encounter: 13:14 Assessment and Plan (1) Lung nodule Status: Acute Assessment and plan: I discussed with Mr. Posadas about his recent CT chest revealing a RLL nodule. I spoke with Dr. Sunshine who was informed by pathology today that the results were probably consistent with NSCLC. Final pathology results will be ready, likely tomorrow. In view of the significant degree of symptomatic coronary artery disease, he will undergo CABG tomorrow. He will need to undergo his staging work up after surgery. I would recommend outpatient PET scan, as well as liver MRI( for better characterization of liver lesion), and referral to [facility] to consider EBUS/biopsy of mediastinal nodes for pathologic staging. His CT chest showed an isolated lesion in the RLL, associated with enlarged ( 14 mm ) right hilar adenopathy, but not mediastinal lymphadenopathies. Mr. Posadas was aware of the preliminary pathology results, as well of the above plan of care. - During the visit we discussed the management of lung cancer by different stages, but he was explained that an specific recommendation would depend of the final result of his lung biopsy and clinical/pathologic staging. He was accompanied by his and sister during the visit. -Upon discharge, please arrange for outpatient follow up with medical oncology and pulmonology within 7 days post discharge to discuss further management of his lung cancer. (2) CAD (coronary artery disease) Status: Acute Assessment and plan: - I appreciate cardiology and CT surgery input. Plan for CABG tomorrow in view of symptomatic and severe CAD Qualifiers: Coronary Disease-Associated Artery/Lesion type: [place] artery [place] vs. transplanted heart: [place] heart Associated angina: without angina Qualified Code(s): I25.10 - Atherosclerotic heart disease of [place] coronary artery without angina pectoris (3) Liver lesion Status: Acute Assessment and plan: - Incidental finding of indeterminate liver lesion in segment 3 measuring 5 x 4.5 cm associated with other hypodense liver lesions consistent with cysts. He seems to be asymptomatic from it. No prior abdominal scan to compare. Will need liver MRI to exclude malignancy. (4) Atrial fibrillation Status: Acute Assessment and plan: - On xarelto as outpatient, currently anticoagulated with heparin drip in preparation for tomorrow's surgery. Qualifiers: Atrial fibrillation type: unspecified Qualified Code(s): I48.91 - Unspecified atrial fibrillation (5) AAA (abdominal aortic aneurysm) Status: Acute Assessment and plan: - Vascular consultation has been requested. Qualifiers: Presence of rupture: without rupture Qualified Code(s): I71.4 - Abdominal aortic aneurysm, without rupture - Data of Consult Requesting Physician: Adri Linares Primary Care Provider: Galen Thurman MD - Consult Narrative Reason for consult: Management of likely newly diagnosed NSCLC History of present illness: Mr. Posadas is a 72 year old male with history of Afib on xarelto, HTN, hyperlipidemia admitted electively for surgical management of his coronary artery disease, for planned CABG procedure. During completion of his pre surgical work uphe underwent a CT chest first, then CT angio that revealed the incidental finding of a right lower lobe pulmonary node of approximatley 1.5 cm , spiculated, as well an indetermined liver lesion measuring 5 x 4.5 cm in segment 3, associated with other hypodense lesions consistent with cysts. He underwent a CT guided biopsy of the lung lesion today. Cardiothoracic surgery was informed that preliminary results were probably consistent with NSCLC. His CT chest showed not mediastinal lymphadenopathy, but revealed a 14 mm right hilar node. He denies respiratory complaints, but admit to be smoking just prior to admission. He was accompanied by his wfe and his sister during the hospital visit. He reports not family history of lung cancer, but reports that his mother was diagnosed with colon cancer while in the 70s. he reports having frequent colonoscopies, each 2 years due to history of polyps, but not colon cancer. He was also noticed to have a 4,5 cm AAA for which a vascular consult has been requested. He reports that live here in [place] with his . Past Med Surg Social Fam HX - Past Medical History Medical history: arthritis, atrial fibrillation, hyperlipidemia, hypertension Psychiatric history: no psych history - Past Surgical History Surgical History: no surgical history - Social History Smoking Status: Current every day smoker Packs per day: 1/2 Smokeless Tobacco Status: No Alcohol use: occasionally Drug use: none - Family History Mother History Unknown: Yes Adopted: No Hx Family Cancer: Yes Father Cause of : Brain tumors Hx Family Cardiac Disorders: Yes Medications and Allergies Amlodipine/Atorvastatin [Amlodipine-Atorvast 5-40 mg] 1 each PO DAILY 06/08/17 [ History] Aspirin [Lo-Dose Aspirin EC] 81 mg PO DAILY 06/08/17 [History] Lisinopril-HCTZ 20-12.5 [Prinzide 20-12.5] 1 each PO DAILY 06/08/17 [History] Meloxicam [Mobic] 15 mg PO DAILY 06/08/17 [History] Metoprolol XL (24 HR) Succ [Toprol XL] 25 mg PO BID 06/08/17 [History] Rivaroxaban [Xarelto] 20 mg PO DAILY 06/08/17 [History] Tizanidine HCl [Zanaflex] 4 mg PO TID PRN 06/08/17 [History] 3 Allergy/AdvReac Type Severity Reaction Status Date / Time No Known Allergies Allergy Verified 04/02/15 18:03 Constitutional: Absent: anorexia, chills, frequent falls Cardiovascular: Present: irregular heart rhythm, other (neck pain with activity. ) Respiratory: Absent: cough, hemoptysis, pain on inspiration Gastrointestinal: Absent: abdominal pain, coffee ground emesis, dysphagia Musculoskeletal: Absent: abnormal gait, arthralgias Integumentary: Absent: change in pigmentation, lesions Neurological: Absent: abnormal gait, abnormal movements, disequilibrium Psychiatric: Absent: confusion, hallucinations, memory loss Hematologic/Lymphatic: Present: as per HPI Oncology - Exam - Constitutional Vitals: Temp Pulse Resp BP Pulse Ox 98.2 F 84 14 124/94 97 06/10/17 11:29 06/10/17 11:29 06/10/17 11:29 06/10/17 11:29 06/10/17 11:29 - Head Head exam: Present: normal inspection, normocephalic - Eye Eye exam: Present: EOMI. Absent: periorbital tenderness - Cardiovascular Cardiovascular exam: Present: irregular rhythm. Absent: systolic murmur - GI/Abdominal GI/Abdominal exam: Present: normal bowel sounds. Absent: organomegaly, rebound - Extremities Exam Extremities exam: Present: normal inspection. Absent: pedal edema - Back Exam Back exam: Present: normal inspection. Absent: paraspinal tenderness - Neurological Exam Neurological exam: Present: alert, oriented X3 - Psychiatric Psychiatric exam: Present: normal affect, normal mood - Skin Skin exam: Present: normal color. Absent: petechiae Consult Discharge Plan - Plan Referrals: Galen Thurman MD [Primary Care Provider] -
[2017-06-10 13:23] LABS: INR 1.1; Prothrombin Time 11.4 Seconds (9.4-12.1)
[2017-06-10 13:28] LABS: Activated Partial Thrombo Time 28.8 Seconds (26.0-36.0)
[2017-06-10] MEDS: Aspirin Enteric Coated 81 MG Tablet PO SCH (13:47)
[2017-06-10] MEDS: Chlorhexidine Rinse 15 ML MOUTHWASH MM SCH (20:53)
[2017-06-11] MEDS: *HR* HYDROcodone/Acet 5/325 mg TABLET PO PRN ×2 (04:20→17:59)
[2017-06-11] MEDS ORDERED: CeFAZolin Syr 2,000MG/20 ML 2,000 MG/20 ML SYRINGE IVPB ONE (05:00)
[2017-06-11] MEDS: Chlorhexidine Rinse 15 ML MOUTHWASH MM SCH ×2 (05:44→20:38)
[2017-06-11] MEDS: Metoprolol XL (24 HR) Succ 25 MG TAB.ER.24H PO SCH ×2 (05:57→14:10)
[2017-06-11] MEDS: Aspirin Enteric Coated 81 MG Tablet PO SCH (05:58)
[2017-06-11] MEDS ORDERED: *HR* Phenylephrine 10 MG/ML VIAL ONE (06:45)
[2017-06-11] MEDS ORDERED: *HR* Rocuronium Bromide 50 MG/5 ML VIAL ONE (06:45)
[2017-06-11] MEDS ORDERED: Protamine Sulfate 250 MG/25 ML VIAL IVP ONE (06:46)
[2017-06-11] MEDS ORDERED: *HR* Etomidate 20 MG/10 ML AMPUL IVP ONE (06:46)
[2017-06-11] MEDS ORDERED: Famotidine 20 MG/2 ML VIAL ONE (06:46)
[2017-06-11] MEDS ORDERED: Tranexamic Acid 1,000 MG/10 ML VIAL ONE ×2 (06:46→09:13)
--- NOTE | 2017-06-11 06:48 | Vascular/Endovasc Consult Note ---
Date of Encounter: 06/10/17 Time of Encounter: 15:30 Assessment and Plan (1) Left carotid artery stenosis Current Visit: Yes Status: Chronic The patient has a known history of carotid stenosis. His recent carotid duplex reveals a 40-59% stenosis. This is essentially unchanged from his duplex in 2016. He denies any recent symptoms of CVA, TIA or amaurosis fugax. Recommend that he continue with daily ASA. He may proceed with cardiac surgery. (2) AAA (abdominal aortic aneurysm) Current Visit: Yes Status: Chronic The pathophysiology and natural history of abdominal aortic aneurysms was discussed with the patient and all questions were answered. The patient was found to have a 4.1 x 4.5cm infrarenal abdominal aortic aneurysm on CT scan. He denies any recent symptoms of new onset abdominal, flank or back pain. He was instructed to seek immediate medical attention if symptoms occur. Continued surveillence is recommended. He will need an ultrasound in 6 months and may follow-up with vascular surgery. Qualifiers: Presence of rupture: without rupture Qualified Code(s): I71.4 - Abdominal aortic aneurysm, without rupture (3) CAD (coronary artery disease) Current Visit: Yes Status: Acute The patient has been scheduled for coronary artery bypass grafting. He currently denies chest pain or shortness of breath at rest. Qualifiers: Coronary Disease-Associated Artery/Lesion type: [place] artery [place] vs. transplanted heart: [place] heart Associated angina: without angina Qualified Code(s): I25.10 - Atherosclerotic heart disease of [place] coronary artery without angina pectoris - History of Present Illness Consult date: 06/10/17 Requesting physician: Chidi Sunshine Consult reason: carotid stenosis, AAA Chief complaint: Coronary artery disease History of present illness: Mr. Posadas is a 72 year old male with a history of hypertension, hyperlipidemia and carotid stenosis. The patient reports that he was experiencing neck pain and pressure that radiated to his back and left arm. He reports that while undergoing a recent exam, he ws noted to be in atrial fibrillation. As part of his evaluation, he underwent a left heart cath and was found to have severe coronary artery disease. Coronary artery bypass was recommended. Due to his history of carotid stenosis, vascular surgery was consulted for further evaluation. Since his admission, he has undergone a CT scan and was found to have an abdominal aortic aneurysm and a lung mass. He denies any new onset abdominal, flank or back pain. He denies any recent symptoms of CVA, TIA or amaurosis fugax. He denies chest pain or shortness of breath. Past Med Surg Social Fam HX - Past Medical History Medical history: arthritis, atrial fibrillation, hyperlipidemia, hypertension Psychiatric history: no psych history - Past Surgical History Surgical History: no surgical history - Social History Smoking Status: Current every day smoker Packs per day: 1/2 Smokeless Tobacco Status: No Alcohol use: occasionally Drug use: none - Family History Mother History Unknown: Yes Adopted: No Hx Family Cancer: Yes Father Cause of : Brain tumors Hx Family Cardiac Disorders: Yes Medications and Allergies Amlodipine/Atorvastatin [Amlodipine-Atorvast 5-40 mg] 1 each PO DAILY 06/08/17 [ History] Aspirin [Lo-Dose Aspirin EC] 81 mg PO DAILY 06/08/17 [History] Lisinopril-HCTZ 20-12.5 [Prinzide 20-12.5] 1 each PO DAILY 06/08/17 [History] Meloxicam [Mobic] 15 mg PO DAILY 06/08/17 [History] Metoprolol XL (24 HR) Succ [Toprol XL] 25 mg PO BID 06/08/17 [History] Rivaroxaban [Xarelto] 20 mg PO DAILY 06/08/17 [History] Tizanidine HCl [Zanaflex] 4 mg PO TID PRN 06/08/17 [History] 3 Allergy/AdvReac Type Severity Reaction Status Date / Time No Known Allergies Allergy Verified 04/02/15 18:03 All Systems Review: A 10-system review of systems was performed and is negative for pertinent findings except as documented above in the HPI. - Constitutional Constitutional: no chills, no fever(s) - Cardiovascular Cardiovascular: chest pain with exertion, dyspnea on exertion, irregular heart rhythm, no chest pain at rest, no dyspnea at rest - Gastrointestinal Gastrointestinal: no abdominal pain - Neurological Neurological: no abnormal speech, no dizziness, no focal weakness, no numbness, no syncope Exam Vital Signs, Last 4 Hours Temp Resp BP Pulse Ox 06/11/17 04:00 98.5 F 17 136/95 97 General: Present: Conversant, No Apparent Distress, Well nourished HEENT: Present: Atraumatic, Trachea midline, Pupils equal Neck: Absent: JVD, Lymphadenopathy, Left Carotid bruit, Right Carotid bruit Cardiac: Present: Normal S1 and S2, No Murmur Lungs: Present: Normal Breath Sounds Neuro: Present: Alert and responsive, No focal deficits noted, Motor nerves grossly intact, Sensory nerves grossly intact Abdomen: Present: Soft, Non-tender, Other (protuberant). Absent: Masses Vascular: Present: Normal capillary refill, Pulse, normal. Absent: Cyanosis, Edema Skin: Present: No rashes noted on visualized skin Musculoskeletal: Present: No Chest Wall Tenderness Consult Discharge Plan - Plan Referrals: Galen Thurman MD [Primary Care Provider] -
[2017-06-11] MEDS ORDERED: *HR* Midazolam HCl 5 MG/5 ML VIAL IVP ONE ×2 (06:54→11:57)
[2017-06-11] MEDS ORDERED: *HR* FentaNYL (PF) 1,000 MCG/20 ML VIAL ONE (06:54)
[2017-06-11] MEDS ORDERED: Nitroglycerin 25 MG/250 ML INFUS..BTL IVC ONE ×2 (06:56→10:51)
[2017-06-11] MEDS ORDERED: NiCARdipine 2.5 MG/10 ML Syringe IVPB ONE (06:57)
[2017-06-11] MEDS ORDERED: Verapamil 5 MG/2 ML VIAL ONE (06:58)
[2017-06-11 08:04] LABS: ABG Base Excess -1 mEq/L (-2 to 3); ABG Chloride 109 mEq/L (98-107); ABG Glucose 89 mg/dL (60-95); ABG HCO3 25 mEq/L (21-27); ABG Ionized Calcium 1.15 mmol/L (1.15-1.35); ABG Oxygen Saturation 99 % (95-98); ABG PCO2 45 mmHg (35-45); ABG PH 7.35 pH Units (7.32-7.45); ABG PO2 151 mmHg (85-104); ABG TCO2 26 mEq/L (20-26)
[2017-06-11] MEDS ORDERED: *HR* Amiodarone 150 MG/3 ML VIAL IVPB ONE (08:27)
[2017-06-11] MEDS ORDERED: Amiodarone Premix 360 MG/200 ML BAG IVC ONE ×3 (08:28→13:12)
--- NOTE | 2017-06-11 08:59 | Event Note ---
Date of Encounter: 06/11/17 Time of Encounter: 08:54 I attempted to see patient, but he is not at his room. Plans for CABG today. I called pathology department, and final results are not available yet, but preliminary impression is consistent with NSCLC. Plan as described in prior note.
[2017-06-11] MEDS ORDERED: Metoprolol XL (24 HR) Succ 25 MG TAB.ER.24H PO SCH (09:00)
[2017-06-11] MEDS ORDERED: Albumin Human 25% 25 GM/100 ML IV.SOLN IV ONE (09:09)
[2017-06-11] MEDS ORDERED: Mannitol 25% vial 12.5 GM/50 ML VIAL IVP ONE (09:09)
[2017-06-11] MEDS ORDERED: Sodium Bicarbonate 50 MEQ/50 ML VIAL IVC ONE (09:09)
[2017-06-11] MEDS ORDERED: *HR* Phenylephrine 10 MG/ML VIAL IVC ONE (09:09)
[2017-06-11] MEDS ORDERED: *HR* Magnesium Sulfate 2 GM/50 ML PIGGYBACK IVPB ONE (09:09)
[2017-06-11] MEDS ORDERED: Lidocaine 2% Syringe 100 MG/5 ML IV ONE (09:09)
[2017-06-11] MEDS ORDERED: *HR* Heparin 10,000 UNIT/10 ML VIAL IV ONE (09:09)
[2017-06-11 09:12] LABS: ABG Base Excess -2 mEq/L (-2 to 3); ABG Chloride 109 mEq/L (98-107); ABG Glucose 128 mg/dL (60-95); ABG HCO3 24 mEq/L (21-27); ABG Ionized Calcium 1.16 mmol/L (1.15-1.35); ABG Oxygen Saturation 99 % (95-98); ABG PCO2 46 mmHg (35-45); ABG PH 7.34 pH Units (7.32-7.45); ABG PO2 145 mmHg (85-104); ABG TCO2 26 mEq/L (20-26)
--- NOTE | 2017-06-11 09:31 | Anesthesia Procedures ---
Date of Encounter: 06/11/17 Time of Encounter: 07:45 Procedures: Anesthesia - Arterial Line Consent obtained: written consent Time out performed: Yes Sedation: Versed (mg): 5 Sedation: Fentanyl (mcg): 250 Supplemental Oxygen via Nasal Cannula (L/min): 2 Local Anesthetic: Lidocaine 1% (1) Size (Gauge): 20 Length (inches): 5 Technique Used: sterile prep, guide wire technique, direct puncture technique Post-Procedure: line taped into place, dry sterile dressing placed Patient tolerated procedure: well, no complications Complications: none Site: Radial L (attempt x 1 easy) - Central Line Placement Right IJ Consent obtained: written consent Time out performed: Yes Patient placed on monitor/pulse ox: Yes prep: mask, gown, gloves Central line prep: Chlorhexidine scrub Ultrasound used for placement: Yes Technique: Seldinger Lumen Inserted: Introducer Post procedure: sutured in place, good blood return, all ports aspirated, flushed, capped, sterile dressing applied Patient tolerated procedure: well, no complications Complications: none Comments: introducer placed easily, swan placed easily without dysrythmias, wedge approx, 56cm
[2017-06-11 09:38] LABS: ABG Base Excess 1 mEq/L (-2 to 3); ABG Chloride 100 mEq/L (98-107); ABG Glucose 116 mg/dL (60-95); ABG HCO3 25 mEq/L (21-27); ABG Ionized Calcium 1.05 mmol/L (1.15-1.35); ABG Oxygen Saturation 100 % (95-98); ABG PCO2 38 mmHg (35-45); ABG PH 7.43 pH Units (7.32-7.45); ABG PO2 621 mmHg (85-104); ABG TCO2 26 mEq/L (20-26)
[2017-06-11 10:01] LABS: ABG Base Excess 2 mEq/L (-2 to 3); ABG Chloride 103 mEq/L (98-107); ABG Glucose 229 mg/dL (60-95); ABG HCO3 26 mEq/L (21-27); ABG Ionized Calcium 1.01 mmol/L (1.15-1.35); ABG Oxygen Saturation 100 % (95-98); ABG PCO2 36 mmHg (35-45); ABG PH 7.46 pH Units (7.32-7.45); ABG PO2 478 mmHg (85-104); ABG TCO2 27 mEq/L (20-26)
[2017-06-11 10:30] LABS: ABG Base Excess 2 mEq/L (-2 to 3); ABG Chloride 102 mEq/L (98-107); ABG Glucose 192 mg/dL (60-95); ABG HCO3 26 mEq/L (21-27); ABG Ionized Calcium 1.08 mmol/L (1.15-1.35); ABG Oxygen Saturation 100 % (95-98); ABG PCO2 38 mmHg (35-45); ABG PH 7.44 pH Units (7.32-7.45); ABG PO2 578 mmHg (85-104); ABG TCO2 27 mEq/L (20-26)
[2017-06-11] MEDS ORDERED: Albumin Human 5% 50.0 GM/1,000 ML VIAL ONE (10:51)
[2017-06-11 10:59] LABS: ABG Base Excess -1 mEq/L (-2 to 3); ABG Chloride 107 mEq/L (98-107); ABG Glucose 130 mg/dL (60-95); ABG HCO3 24 mEq/L (21-27); ABG Ionized Calcium 0.97 mmol/L (1.15-1.35); ABG Oxygen Saturation 100 % (95-98); ABG PCO2 37 mmHg (35-45); ABG PH 7.41 pH Units (7.32-7.45); ABG PO2 551 mmHg (85-104); ABG TCO2 25 mEq/L (20-26)
[2017-06-11] MEDS ORDERED: Heparin 1,000 UNITS/500 mL NS 500 ML ONE (11:32)
[2017-06-11 11:37] LABS: ABG Base Excess -3 mEq/L (-2 to 3); ABG Chloride 109 mEq/L (98-107); ABG Glucose 147 mg/dL (60-95); ABG HCO3 24 mEq/L (21-27); ABG Ionized Calcium 1.58 mmol/L (1.15-1.35); ABG Oxygen Saturation 95 % (95-98); ABG PCO2 47 mmHg (35-45); ABG PH 7.31 pH Units (7.32-7.45); ABG PO2 83 mmHg (85-104); ABG TCO2 25 mEq/L (20-26)
[2017-06-11] MEDS ORDERED: *HR* FentaNYL (PF) 250 MCG/5 ML VIAL ONE (11:57)
[2017-06-11] MEDS ORDERED: Insulin Regular, Human 100 UNIT/ML IV PRN (12:42)
[2017-06-11] MEDS ORDERED: Potassium Chloride 40 MEQ/200 ML BAG IVPB PRN (12:42)
[2017-06-11] MEDS ORDERED: *HR* Promethazine 25 MG/ML VIAL IVP PRN (12:42)
[2017-06-11] MEDS ORDERED: *HR* Dextrose 50 % in Water (Syg) 50 ML SYRINGE IVP PRN (12:42)
[2017-06-11] MEDS ORDERED: Ondansetron 4 MG/2 ML VIAL IVP PRN (12:42)
[2017-06-11] MEDS ORDERED: *HR* LORazepam 2 MG/ML VIAL IVP PRN (12:55)
[2017-06-11 13:12] LABS: Basophils % 0.1 %; Eosinophils # 0.3 K/mcL (0.0-0.6); Eosinophils % 1.3 %; Hematocrit 41.1 % (37.5-50.1); Immature Granulocytes % 1.7 % (0-4); Lymphocytes # 3.4 K/mcL (0.6-4.6); Lymphocytes % 15.7 %; Mean Corpuscular HGB Conc 34.1 g/dL (31.6-35.5); Mean Corpuscular Hemoglobin 30.8 pg (28.0-33.3); Mean Corpuscular Volume 90.3 fL (83.0-100.0); Mean Platelet Volume 8.8 fL (9.4-12.4); Monocytes # 1.1 K/mcL (0.0-1.3); Monocytes % 4.9 %; Neutrophils # 16.5 K/mcL (1.6-8.9); Red Blood Count 4.55 M/mcL (4.19-5.50); Red Cell Distribution Width 14.2 % (11.5-14.5); Segmented Neutrophils % 76.3 %
[2017-06-11 13:13] LABS: Platelet Count 75 K/mcL (140-400)
[2017-06-11 13:19] LABS: ABG Base Excess -2 mEq/L (-2 to 3); ABG HCO3 24 mEq/L (21-27); ABG Oxygen Saturation 98 % (95-98); ABG PCO2 45 mmHg (35-45); ABG PH 7.33 pH Units (7.32-7.45); ABG PO2 106 mmHg (85-104); ABG TCO2 25 mEq/L (20-26)
[2017-06-11 13:26] LABS: BUN/Creatinine Ratio 13 (6-26); Blood Urea Nitrogen 10 mg/dL (8-26); Calcium 7.4 mg/dL (8.6-10.8); Carbon Dioxide 20 mEq/L (19-29); Chloride 114 mEq/L (98-109); Glucose 86 mg/dL (70-99); Osmolality,Calculated 298 (280-300); Potassium 3.2 mEq/L (3.5-4.5); Sodium 145 mEq/L (136-145); eGFR For African Americans > 60 (> 60); eGFR For Non-African Americans > 60 (> 60)
[2017-06-11] MEDS ORDERED: Potassium Chloride 40 MEQ/200 ML BAG IVPB ONE (13:28)
--- NOTE | 2017-06-11 13:44 | Operative Note ---
Date of procedure: 06/11/17 Procedure in Detail: Preoperative diagnosis. Coronary artery disease, atrial fibrillation and lung cancer. Postoperative diagnosis. Same. Procedures. Coronary artery bypass grafting 2 with the left internal mammary artery to the LAD and a saphenous vein graft to the obtuse marginal branch of the circumflex, modified maze procedure with left atrial appendage stapling and percutaneous insertion of intra-aortic balloon pump. Surgeon. Dr. Chidi Sunshine. Asst. Devon Burgess. Anesthesia. Dr. Sridhar Galindo. The patient is a 72-year-old gentleman who does have a history of smoking. Cardiac catheterization revealed left main disease with severe triple vessel disease and decreased ventricular function. He has been in atrial fibrillation for an unknown period of time. He was found preoperatively to have a 4.5 cm abdominal aortic aneurysm and a right lung nodule. Biopsy of the right lung nodule was compatible with non-small cell carcinoma on preliminary reading. The patient will need additional workup for his lung lesion, but it was felt that his 85% left main lesion was critical and that the heart should be addressed first. He was brought to the operating room where he underwent a general anesthetic and was prepped and draped in standard fashion. The right greater saphenous vein was harvested from the right knee down to the right ankle. This was done through 2 small incisions using the scope. A standard median sternotomy was performed. The left internal mammary artery retractor was inserted and the left internal mammary artery was harvested in standard fashion using the Bovie electrocoagulation. The mammary retractor was removed in the standard sternal temper mill roller was inserted. Pericardium was opened in the midline and suspended with 2-0 silk stay sutures. Double portion of 20 Surgilon was placed in the aorta for aortic cannulation site. Purstring of 20 Surgilon was placed in the right atrial appendage for the venous uptake. The patient was heparinized. The aorta was cannulated without difficulty. 2 stage venous uptake cannula was inserted through the right atrial appendage. A pursestring of 3-0 silk was placed in the aorta and the cardioplegia needle was inserted through here. This was also used is an active and passive aortic vent. The patient was placed on cardiopulmonary bypass. First the modified maze procedure was done. The right superior and inferior pulmonary veins were encircled with a clamp followed by a red rubber catheter in the bipolar device. Radiofrequency ablation was used to isolate the 2 veins. Next the left superior and inferior pulmonary veins were encircled and isolated with radiofrequency ablation. The left atrial appendage was then stapled using a GI stapler without a knife. At this point the aorta was crossclamped and a liter of cardioplegia was given. Attention was first turned to the right coronary artery. The main right coronary artery and posterior descending branches were too small and diffusely diseased for grafting. The obtuse marginal branch of the circumflex was dissected free with the Wainwright blade and opened with a Wainwright blade and the Manriquez scissors. This had a lumen of 1-1/2 mm with mild to moderate diffuse disease. A standard end-to-side anastomosis was constructed using the saphenous vein in a 7-0 Prolene. When this was completed, the patient received the last dose of antegrade cardioplegia. Mammary pedicle was harvested. Tonsil clamp was placed distally and was divided with the Metzenbaum scissors. Distal end was tied over the 2-0 silk suture. Proximal end was trimmed and brought into the wound. The LAD was dissected free with the Wainwright blade and opened with a Wainwright blade and the Manriquez scissors. This had a lumen of 1-1/2 mm with mild diffuse disease. A standard end-to-side anastomosis was constructed using the mammary artery and a 7-0 Prolene. When this is completed, previously placed bulldog clamp was removed and hemostasis was good. Pedicle was tacked to surface the heart using 2 interrupted 5-0 silk sutures. Cross-clamp was removed and rewarming was begun. Total cross-clamp time was 33 minutes. A side-biting clamp was placed on the aorta and the cardioplegia needle was removed. A hole was made in the aorta using the Wainwright blade and a 4.5 mm aortic punch. A standard proximal anastomosis was constructed using the saphenous vein and a 5-0 Prolene. When this is completed, the side-biting clamp was removed. Graft was de-aired using #25-gauge needle and the previously placed bulldog clamp was removed. Distal anastomoses were inspected and found to be hemostatic. Proximal anastomosis were marked with markers and Ray-Elizabeth sponge. A pair of atrial and ventricular pacing wires was left. The patient was paced in the DDD mode. A total of 4 chest tubes were left. A 32 right angle chest tube to the left pleural space. A 32 right chest tube with a pericardial well. A 40 mediastinal chest tube. A 32 right angle chest tube to the right pleural space. We did place a percutaneous intra-aortic balloon pump through the left femoral approach. The patient was weaned from bypass requiring low- dose dopamine for support. He was decannulated and protamine was given. A suture of 4-0 Prolene with pledgets was placed in the right atrial appendage to obtain hemostasis. After this the hemostasis and hemodynamics were good. Pericardium was left open. Sternum was closed with #7 sternal wires in simple and [id number] fashion. We did use platelet rich plasma on the sternum and platelet poor plasma for the layers above the sternum. The fascia was closed with #1 Vicryl. Subcutaneous tissues with 2-0 Vicryl. Skin was closed with a 3- 0 Vicryl subcuticular stitch. The patient tolerated the procedure well and was returned to intensive care unit in satisfactory and stable condition. Total bypass time 101 minutes. Total cross-clamp time 33 minutes. Human cooled to 35.5 .
[2017-06-11 14:04] LABS: Activated Partial Thrombo Time 33.6 Seconds (26.0-36.0); INR 1.5
[2017-06-11 14:07] LABS: Prothrombin Time 16.4 Seconds (9.4-12.1)
[2017-06-11] MEDS: amLODIPine 5 MG TABLET PO SCH (14:10)
[2017-06-11] MEDS: 0.9 % Sodium Chloride 1,000 ML IVC SCH ×3 (14:10→15:04)
[2017-06-11] MEDS: Isosorbide MONOnitrate (24 HR) 30 MG TAB.ER.24H PO SCH (14:10)
[2017-06-11] MEDS: tiZANidine 4 MG TABLET PO SCH ×3 (14:11→20:30)
[2017-06-11] MEDS: niCARdipine 40 MG/200 ML MLS IVC SCH ×2 (14:12→21:03)
[2017-06-11] MEDS: Norepinephrine 4 MG in D5% in Water 250 ML IVC SCH (14:13)
[2017-06-11] MEDS: Amiodarone Premix 360 MG/200 ML BAG IVC SCH (14:13)
[2017-06-11] MEDS: Nitroglycerin 25 MG/250 ML INFUS..BTL IVC SCH ×2 (14:14→22:31)
[2017-06-11] MEDS: Insulin Human Regular 100 UNIT in 0.9 % Sodium Chloride 100 ML IVC SCH ×2 (14:35→15:30)
[2017-06-11] MEDS: CeFAZolin Premix DUPLEX 2,000 MG/50 ML BAG IVPB SCH (15:20)
[2017-06-11] MEDS: *HR* Morphine 2 MG/ML SYRINGE IVP PRN ×4 (15:36→20:37)
[2017-06-11] MEDS: *HR* OxyCODONE/APAP 5/325 TABLET PO PRN (15:36)
[2017-06-11 17:52] LABS: Hematocrit 37.1 % (37.5-50.1); Hemoglobin 12.6 g/dL (12.9-16.9)
[2017-06-11 17:56] LABS: ABG Base Excess -5 mEq/L (-2 to 3); ABG HCO3 21 mEq/L (21-27); ABG Oxygen Saturation 97 % (95-98); ABG PCO2 44 mmHg (35-45); ABG PO2 103 mmHg (85-104); ABG TCO2 23 mEq/L (20-26)
--- NOTE | 2017-06-11 19:00 | Electrocardiograph Report ---
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
[2017-06-11 19:51] LABS: ABG Base Excess -5 mEq/L (-2 to 3); ABG HCO3 22 mEq/L (21-27); ABG Oxygen Saturation 96 % (95-98); ABG PCO2 48 mmHg (35-45); ABG PH 7.27 pH Units (7.32-7.45); ABG PO2 90 mmHg (85-104); ABG TCO2 24 mEq/L (20-26); Blood Gas Modality CPAP/PS; Blood Gas PEEP 5 cm H2O; Blood Gas Pressure Support 8 cm H2O
[2017-06-12] MEDS: CeFAZolin Premix DUPLEX 2,000 MG/50 ML BAG IVPB SCH (00:39)
[2017-06-12 00:40] LABS: ABG Base Excess -3 mEq/L (-2 to 3); ABG HCO3 23 mEq/L (21-27); ABG Oxygen Saturation 97 % (95-98); ABG PCO2 41 mmHg (35-45); ABG PH 7.35 pH Units (7.32-7.45); ABG PO2 91 mmHg (85-104); ABG TCO2 24 mEq/L (20-26); Blood Gas Modality ASSIST CONTROL; Blood Gas PEEP 5 cm H2O; Blood Gas Respiration Rate 10; Blood Gas VT 600 cc
[2017-06-12] MEDS: *HR* Morphine 2 MG/ML SYRINGE IVP PRN ×6 (01:22→23:07)
[2017-06-12 01:49] LABS: ABG Base Excess -4 mEq/L (-2 to 3); ABG HCO3 23 mEq/L (21-27); ABG Oxygen Saturation 97 % (95-98); ABG PCO2 46 mmHg (35-45); ABG PO2 96 mmHg (85-104); ABG TCO2 24 mEq/L (20-26); Blood Gas Modality CPAP/PS; Blood Gas PEEP 5 cm H2O; Blood Gas Pressure Support 8 cm H2O
[2017-06-12] MEDS: Amiodarone Premix 360 MG/200 ML BAG IVC SCH (02:05)
[2017-06-12 03:45] LABS: Basophils % 0.2 %; Hemoglobin 10.8 g/dL (12.9-16.9); INR 1.3; Immature Granulocytes % 0.6 % (0-4); Immature Platelets 5.7 % (1.1-6.1); Lymphocytes # 1.6 K/mcL (0.6-4.6); Mean Corpuscular HGB Conc 33.8 g/dL (31.6-35.5); Mean Corpuscular Hemoglobin 31.4 pg (28.0-33.3); Mean Platelet Volume 9.8 fL (9.4-12.4); Monocytes # 1.6 K/mcL (0.0-1.3); Monocytes % 9.8 %; Neutrophils # 12.6 K/mcL (1.6-8.9); Platelet Count 108 K/mcL (140-400); Prothrombin Time 13.7 Seconds (9.4-12.1); Red Blood Count 3.44 M/mcL (4.19-5.50); Red Cell Distribution Width 14.8 % (11.5-14.5); Segmented Neutrophils % 79.4 %
[2017-06-12 03:47] LABS: Activated Partial Thrombo Time 33.6 Seconds (26.0-36.0)
[2017-06-12 03:52] LABS: Calcium 8.1 mg/dL (8.6-10.8); Magnesium 2.2 mg/dL (1.6-2.6); Potassium 5.1 mEq/L (3.5-4.5)
[2017-06-12] MEDS: 0.9 % Sodium Chloride 1,000 ML IVC SCH ×2 (04:15→16:15)
[2017-06-12 06:19] LABS: ABG Base Excess -3 mEq/L (-2 to 3); ABG HCO3 23 mEq/L (21-27); ABG Oxygen Saturation 94 % (95-98); ABG PCO2 43 mmHg (35-45); ABG PH 7.34 pH Units (7.32-7.45); ABG PO2 76 mmHg (85-104); ABG TCO2 24 mEq/L (20-26); Blood Gas Modality ASSIST CONTROL; Blood Gas PEEP 5 cm H2O; Blood Gas Respiration Rate 10; Blood Gas VT 600 cc
--- NOTE | 2017-06-12 07:45 | Cardiothoracic Progress Note ---
Date of Encounter: 06/12/17 Time of Encounter: 07:43 - Assessment and plan (1) Coronary arteriosclerosis due to lipid rich plaque Current Visit: Yes Status: Acute The patient's creatinine is increased to over 2. We will follow this. He is intra-aortic balloon pump is on 1-2 and when it is turned to 1-3, he has stable vital signs. We will discontinue the aortic balloon pump this morning. We will work on extubating him this morning. - Subjective Interval history: The patient is intubated. He is awake and alert and responds to questions appropriately. Vital Signs, Last 4 Hours Temp Pulse Resp BP Pulse Ox 06/12/17 07:00 99.1 F 80 12 91/48 99 06/12/17 06:10 12 109/56 97 06/12/17 06:00 99.1 F 80 12 88/52 95 06/12/17 05:00 98.4 F 80 12 93/52 99 06/12/17 04:00 98.8 F 80 12 91/52 99 Oxgyen Flow Rate Oxygen Flow Rate (LPM) 2 Clinical Data, last 8 Hours Output, Chest Tube Drainage 30 Amount [#4] Output, Chest Tube Drainage 0 Amount [#4] Output, Chest Tube Drainage 10 Amount [#4] Output, Chest Tube Drainage 15 Amount [#4] Output, Chest Tube Drainage 10 Amount [#4] Output, Chest Tube Drainage 0 Amount [#4] Output, Chest Tube Drainage 5 Amount [#4] Output, Chest Tube Drainage 15 Amount [#4] Output, Chest Tube Drainage 0 Amount [#3] Output, Chest Tube Drainage 0 Amount [#3] Output, Chest Tube Drainage 0 Amount [#3] Output, Chest Tube Drainage 5 Amount [#3] Output, Chest Tube Drainage 10 Amount [#3] Output, Chest Tube Drainage 0 Amount [#3] Output, Chest Tube Drainage 5 Amount [#3] Output, Chest Tube Drainage 0 Amount [#3] Output, Chest Tube Drainage 0 Amount [#2] Output, Chest Tube Drainage 0 Amount [#2] Output, Chest Tube Drainage 0 Amount [#2] Output, Chest Tube Drainage 0 Amount [#2] Output, Chest Tube Drainage 20 Amount [#2] Output, Chest Tube Drainage 30 Amount [#2] Output, Chest Tube Drainage 0 Amount [#2] Output, Chest Tube Drainage 0 Amount [#2] Output, Chest Tube Drainage 0 Amount [#1] Output, Chest Tube Drainage 0 Amount [#1] Output, Chest Tube Drainage 50 Amount [#1] Output, Chest Tube Drainage 0 Amount [#1] Output, Chest Tube Drainage 30 Amount [#1] Output, Chest Tube Drainage 20 Amount [#1] Output, Chest Tube Drainage 30 Amount [#1] Output, Chest Tube Drainage 30 Amount [#1] Weight 06/10/17 06/11/17 06/12/17 23:59 23:59 23:59 Weight 75.4 kg 76.2 kg Lungs are clear to percussion and auscultation. Heart is in a paced rhythm. All incisions are healing well without signs of infection and the sternum is stable. Chest tube drainage is minimal and there is no air leak. Chest x-ray reveals a right lower lobe hematoma secondary to the biopsy, which is resolving. The patient moves all extremities well. - Labs 06/12/17 03:33 06/12/17 03:33 Lab Results, Last 24 hours 06/11/17 06/11/17 06/11/17 13:05 13:05 13:40 WBC 21.6 H D Hgb 14.0 Hct 41.1 Plt Count 75 L D INR 1.5 APTT 33.6 D Sodium 145 Potassium 3.2 L D Chloride 114 H Carbon Dioxide 20 BUN 10 Creatinine 0.76 Glucose 86 Calcium 7.4 L D Magnesium 2.0 06/11/17 06/11/17 06/12/17 17:35 17:35 03:33 WBC 15.8 H Hgb 12.6 L 10.8 L D Hct 37.1 L 32.0 L Plt Count 108 L INR APTT Sodium Potassium 5.1 H D Chloride Carbon Dioxide BUN Creatinine Glucose Calcium Magnesium 06/12/17 06/12/17 03:33 03:33 WBC Hgb Hct Plt Count INR 1.3 APTT 33.6 Sodium 140 Potassium 5.1 H Chloride 111 H Carbon Dioxide 19 BUN 17 Creatinine 2.14 H D Glucose 103 H Calcium 8.1 L Magnesium 2.2 - VTE Reasons for not Prescribing Prophylaxis: Not indicated-Anticoagulated or INR therapeutic Documentation of Mechanical Device: Graduated compression elastic hosiery Consult Discharge Plan - Plan Referrals: Galen Thurman MD [Primary Care Provider] -
[2017-06-12] MEDS: *HR* OxyCODONE/APAP 5/325 TABLET PO PRN ×3 (07:49→22:25)
[2017-06-12] MEDS: niCARdipine 40 MG/200 ML MLS IVC SCH ×4 (08:57→23:27)
[2017-06-12] MEDS: *HR* Amiodarone 200 MG TABLET PO SCH (09:10)
[2017-06-12] MEDS: Aspirin Enteric Coated 81 MG Tablet PO SCH (09:10)
[2017-06-12 10:41] LABS: ABG Base Excess -6 mEq/L (-2 to 3); ABG HCO3 20 mEq/L (21-27); ABG Oxygen Saturation 96 % (95-98); ABG PCO2 43 mmHg (35-45); ABG PH 7.29 pH Units (7.32-7.45); ABG PO2 92 mmHg (85-104); ABG TCO2 22 mEq/L (20-26); Blood Gas Modality CPAP/PS; Blood Gas Pressure Support 5 cm H2O
[2017-06-12] MEDS: Chlorhexidine Rinse 15 ML MOUTHWASH MM SCH ×2 (10:55→20:37)
[2017-06-12] MEDS: Norepinephrine 4 MG in D5% in Water 250 ML IVC SCH (13:17)
[2017-06-12 13:18] LABS: ABG Base Excess -5 mEq/L (-2 to 3); ABG HCO3 21 mEq/L (21-27); ABG Oxygen Saturation 91 % (95-98); ABG PCO2 42 mmHg (35-45); ABG PH 7.31 pH Units (7.32-7.45); ABG PO2 65 mmHg (85-104); ABG TCO2 22 mEq/L (20-26); Blood Gas Modality NCPAP
[2017-06-12] MEDS: Insulin Human Regular 100 UNIT in 0.9 % Sodium Chloride 100 ML IVC SCH (13:19)
[2017-06-12] MEDS: Nitroglycerin 25 MG/250 ML INFUS..BTL IVC SCH ×2 (13:20→20:33)
[2017-06-12] MEDS: Insulin LISPRO 300 UNITS/3 ML VIAL SQ SCH ×2 (16:17→20:33)
--- NOTE | 2017-06-12 17:52 | Oncology Inp Progress Note ---
Date of Encounter: 06/12/17 Time of Encounter: 17:00 (1) Lung nodule Current Visit: Yes Status: Acute Assessment and plan: Right lower lobe pulmonary nodule measuring 1.5 cm with spiculated margin, seen by oncology previously, final biopsy results pending. Imaging reviewed indeterminate liver lesion noted. The patient has undergone coronary artery bypass grafting on 06/11 2017 due to symptomatic CAD. Plan to pursue with the further imaging studies at later date for staging purposes. Plan discussed with patient and bedside. Oncology: Subj Interval history: PAtient is resting comfortably. Lower mid chest discomfort due to CT - Constitutional Vitals: Vital Signs Temp Pulse Pulse Resp BP Pulse Ox 06/12/17 17:00 80 16 143/78 95 06/12/17 16:11 16 91 06/12/17 16:00 80 16 144/80 94 06/12/17 15:00 80 16 142/87 93 06/12/17 14:00 80 16 144/78 95 06/12/17 13:22 96 06/12/17 13:00 97.9 F 80 20 147/74 98 06/12/17 12:00 80 16 139/78 93 06/12/17 11:30 16 96 06/12/17 11:27 18 96 06/12/17 11:00 80 22 154/74 98 06/12/17 10:02 19 97 06/12/17 10:00 98.7 F 80 19 149/72 98 06/12/17 09:32 80 15 140/73 100 06/12/17 09:30 80 19 147/77 98 06/12/17 09:00 98.6 F 80 17 134/67 99 06/12/17 08:37 18 100 06/12/17 08:20 80 14 136/70 100 06/12/17 08:10 18 144/77 98 06/12/17 08:05 80 20 148/76 100 06/12/17 08:00 98.8 F 80 80 14 96/60 100 06/12/17 07:28 80 06/12/17 07:00 99.1 F 80 12 91/48 99 06/12/17 06:10 12 109/56 97 06/12/17 06:00 99.1 F 80 12 88/52 95 06/12/17 05:00 98.4 F 80 12 93/52 99 06/12/17 04:00 98.8 F 80 12 91/52 99 06/12/17 03:00 98.8 F 80 12 94/53 99 06/12/17 02:00 98.8 F 80 12 88/47 98 06/12/17 01:00 98.8 F 80 13 87/55 98 06/12/17 00:21 13 111/54 98 06/12/17 00:00 80 14 93/61 98 06/11/17 23:58 80 06/11/17 23:00 80 13 94/57 98 06/11/17 22:24 13 99/52 98 06/11/17 22:00 98.8 F 80 12 79/50 94 06/11/17 21:00 98.6 F 80 12 95/63 97 06/11/17 20:37 13 90/55 97 06/11/17 20:00 98.8 F 80 12 94/60 97 06/11/17 19:58 80 06/11/17 18:25 16 107/53 97 Intake and Output 06/12/17 06/12/17 06/12/17 07:59 15:59 23:59 Intake Total 1316 / 1316 405.5 / 405.5 50 / 50 Output Total 440 / 440 450 / 450 190 / 190 Balance 876 / 876 -44.5 / -44.5 -140 / -140 Intake: IV Fluids 1316 / 1316 305.5 / 305.5 0.9 % Sodium Chloride 1,000 ML 1000 / 1000 @ 75 mls/hr IVC .[id number] KRANTHI Rx #:[id number] Amiodarone Drip Premix 360mg/ 200 / 200 200mL 360 mg In 200 ml @ 0.5 MG /MIN 16.667 mls/hr IVC CONT KRANTHI Rx#:[id number] HumuLIN R 100 UNIT In 0.9 % 35.5 / 35.5 Sodium Chloride 100 ML @ As Directed IVC CONT KRANTHI Rx#: [id number] Nitroglycerin Premix 25 MG/250 66 / 66 20 / 20 ML 25 mg In 250 ml @ 0.5 MCG/KG /MIN 22.86 mls/hr IVC .[id number] KRANTHI Rx#:[id number] ALBURX 5% 12.5 gm In 250 ml @ 250 / 250 999 mls/hr IVPB AD PRN Rx#: [id number] Ancef Premix DUPLEX 2,000 mg In 50 / 50 50 ml @ 100 mls/hr IVPB Q8HR KRANTHI Rx#:[id number] Oral 100 / 100 50 / 50 Output: Catheter 125 / 125 205 / 205 90 / 90 Chest Tube Drainage 315 / 315 245 / 245 100 / 100 #1 160 / 160 100 / 100 30 / 30 #2 50 / 50 40 / 40 10 / 10 #3 20 / 20 60 / 60 30 / 30 #4 85 / 85 45 / 45 30 / 30 Other: Blood Glucose* 101 112 98 General appearance: mild distress - Head Head exam: Present: atraumatic, normal inspection - Eye Eye exam: Present: sclera anicteric - ENT ENT exam: Present: normal exam - Cardiovascular Cardiovascular exam: Present: +S1, +S2 Additional comments: CT draining serosanguos fluid - GI/Abdominal GI/Abdominal exam: Present: soft - Neurological Exam Neurological exam: Present: alert, CN II-XII intact, oriented X3 Oncology: Obj Data - Labs CBC & Chem 7: 06/12/17 03:33 06/12/17 03:33 Labs: Laboratory Results - last 24 hr 06/11/17 06/11/17 06/11/17 17:35 17:35 17:48 WBC RBC Hgb 12.6 L Hct 37.1 L MCV MCH MCHC RDW Plt Count MPV Immature Gran % Seg Neutrophils % Lymphocytes % Monocytes % Eosinophils % Basophils % Neutrophils # Lymphocytes # Monocytes # Eosinophils # Basophils # Immature Plt Fraction PT INR APTT Sample Site ABG pH 7.30 L ABG pCO2 44 ABG pO2 103 ABG HCO3 21 ABG Total CO2 23 ABG O2 Saturation 97 ABG Base Excess -5 L Andrew Test Respiration Rate O2 Delivery Device Blood Gas Modality Inspired O2 Tidal Volume PEEP Pressure Support Sodium Potassium 5.1 H D Chloride Carbon Dioxide BUN Creatinine Est GFR ( Amer) Est GFR (Non-Af Amer) BUN/Creatinine Ratio Glucose POC Glucose Calculated Osmolality Calcium Magnesium 06/11/17 06/11/17 06/11/17 18:28 19:46 20:04 WBC RBC Hgb Hct MCV MCH MCHC RDW Plt Count MPV Immature Gran % Seg Neutrophils % Lymphocytes % Monocytes % Eosinophils % Basophils % Neutrophils # Lymphocytes # Monocytes # Eosinophils # Basophils # Immature Plt Fraction PT INR APTT Sample Site Art Line ABG pH 7.27 L ABG pCO2 48 H ABG pO2 90 ABG HCO3 22 ABG Total CO2 24 ABG O2 Saturation 96 ABG Base Excess -5 L Andrew Test N/A Respiration Rate O2 Delivery Device Adult Vent Blood Gas Modality CPAP/PS Inspired O2 40.0 Tidal Volume PEEP 5 Pressure Support 8 Sodium Potassium Chloride Carbon Dioxide BUN Creatinine Est GFR ( Amer) Est GFR (Non-Af Amer) BUN/Creatinine Ratio Glucose POC Glucose 122 H 111 H Calculated Osmolality Calcium Magnesium 06/11/17 06/11/17 06/11/17 21:01 22:00 23:03 WBC RBC Hgb Hct MCV MCH MCHC RDW Plt Count MPV Immature Gran % Seg Neutrophils % Lymphocytes % Monocytes % Eosinophils % Basophils % Neutrophils # Lymphocytes # Monocytes # Eosinophils # Basophils # Immature Plt Fraction PT INR APTT Sample Site ABG pH ABG pCO2 ABG pO2 ABG HCO3 ABG Total CO2 ABG O2 Saturation ABG Base Excess Andrew Test Respiration Rate O2 Delivery Device Blood Gas Modality Inspired O2 Tidal Volume PEEP Pressure Support Sodium Potassium Chloride Carbon Dioxide BUN Creatinine Est GFR ( Amer) Est GFR (Non-Af Amer) BUN/Creatinine Ratio Glucose POC Glucose 111 H 113 H 108 H Calculated Osmolality Calcium Magnesium 06/12/17 06/12/17 06/12/17 00:35 01:08 01:46 WBC RBC Hgb Hct MCV MCH MCHC RDW Plt Count MPV Immature Gran % Seg Neutrophils % Lymphocytes % Monocytes % Eosinophils % Basophils % Neutrophils # Lymphocytes # Monocytes # Eosinophils # Basophils # Immature Plt Fraction PT INR APTT Sample Site Art Line Art Line ABG pH 7.35 7.30 L ABG pCO2 41 46 H ABG pO2 91 96 ABG HCO3 23 23 ABG Total CO2 24 24 ABG O2 Saturation 97 97 ABG Base Excess -3 L -4 L Andrew Test N/A N/A Respiration Rate 10 O2 Delivery Device Adult Vent Adult Vent Blood Gas Modality ASSIST CONTROL CPAP/PS Inspired O2 40.0 40.0 Tidal Volume 600 PEEP 5 5 Pressure Support 8 Sodium Potassium Chloride Carbon Dioxide BUN Creatinine Est GFR ( Amer) Est GFR (Non-Af Amer) BUN/Creatinine Ratio Glucose POC Glucose 119 H Calculated Osmolality Calcium Magnesium 06/12/17 06/12/17 06/12/17 02:07 02:57 03:33 WBC 15.8 H RBC 3.44 L Hgb 10.8 L D Hct 32.0 L MCV 93.0 MCH 31.4 MCHC 33.8 RDW 14.8 H Plt Count 108 L MPV 9.8 Immature Gran % 0.6 Seg Neutrophils % 79.4 Lymphocytes % 10.0 Monocytes % 9.8 Eosinophils % 0.0 Basophils % 0.2 Neutrophils # 12.6 H Lymphocytes # 1.6 Monocytes # 1.6 H Eosinophils # 0.0 Basophils # 0.0 Immature Plt Fraction 5.7 PT INR APTT Sample Site ABG pH ABG pCO2 ABG pO2 ABG HCO3 ABG Total CO2 ABG O2 Saturation ABG Base Excess Andrew Test Respiration Rate O2 Delivery Device Blood Gas Modality Inspired O2 Tidal Volume PEEP Pressure Support Sodium Potassium Chloride Carbon Dioxide BUN Creatinine Est GFR ( Amer) Est GFR (Non-Af Amer) BUN/Creatinine Ratio Glucose POC Glucose 106 H 104 H Calculated Osmolality Calcium Magnesium 06/12/17 06/12/17 06/12/17 03:33 03:33 04:01 WBC RBC Hgb Hct MCV MCH MCHC RDW Plt Count MPV Immature Gran % Seg Neutrophils % Lymphocytes % Monocytes % Eosinophils % Basophils % Neutrophils # Lymphocytes # Monocytes # Eosinophils # Basophils # Immature Plt Fraction PT 13.7 H INR 1.3 APTT 33.6 Sample Site ABG pH ABG pCO2 ABG pO2 ABG HCO3 ABG Total CO2 ABG O2 Saturation ABG Base Excess Andrew Test Respiration Rate O2 Delivery Device Blood Gas Modality Inspired O2 Tidal Volume PEEP Pressure Support Sodium 140 Potassium 5.1 H Chloride 111 H Carbon Dioxide 19 BUN 17 Creatinine 2.14 H D Est GFR ( Amer) 37 L Est GFR (Non-Af Amer) 31 L BUN/Creatinine Ratio 8 Glucose 103 H POC Glucose 105 H Calculated Osmolality 292 Calcium 8.1 L Magnesium 2.2 06/12/17 06/12/17 06/12/17 05:00 05:57 06:16 WBC RBC Hgb Hct MCV MCH MCHC RDW Plt Count MPV Immature Gran % Seg Neutrophils % Lymphocytes % Monocytes % Eosinophils % Basophils % Neutrophils # Lymphocytes # Monocytes # Eosinophils # Basophils # Immature Plt Fraction PT INR APTT Sample Site Art Line ABG pH 7.34 ABG pCO2 43 ABG pO2 76 L ABG HCO3 23 ABG Total CO2 24 ABG O2 Saturation 94 L ABG Base Excess -3 L Andrew Test N/A Respiration Rate 10 O2 Delivery Device Adult Vent Blood Gas Modality ASSIST CONTROL Inspired O2 40.0 Tidal Volume 600 PEEP 5 Pressure Support Sodium Potassium Chloride Carbon Dioxide BUN Creatinine Est GFR ( Amer) Est GFR (Non-Af Amer) BUN/Creatinine Ratio Glucose POC Glucose 105 H 100 H Calculated Osmolality Calcium Magnesium 06/12/17 06/12/17 06/12/17 07:00 08:00 09:05 WBC RBC Hgb Hct MCV MCH MCHC RDW Plt Count MPV Immature Gran % Seg Neutrophils % Lymphocytes % Monocytes % Eosinophils % Basophils % Neutrophils # Lymphocytes # Monocytes # Eosinophils # Basophils # Immature Plt Fraction PT INR APTT Sample Site ABG pH ABG pCO2 ABG pO2 ABG HCO3 ABG Total CO2 ABG O2 Saturation ABG Base Excess Andrew Test Respiration Rate O2 Delivery Device Blood Gas Modality Inspired O2 Tidal Volume PEEP Pressure Support Sodium Potassium Chloride Carbon Dioxide BUN Creatinine Est GFR ( Amer) Est GFR (Non-Af Amer) BUN/Creatinine Ratio Glucose POC Glucose 101 H 105 H 103 H Calculated Osmolality Calcium Magnesium 06/12/17 06/12/17 06/12/17 10:00 10:21 10:59 WBC RBC Hgb Hct MCV MCH MCHC RDW Plt Count MPV Immature Gran % Seg Neutrophils % Lymphocytes % Monocytes % Eosinophils % Basophils % Neutrophils # Lymphocytes # Monocytes # Eosinophils # Basophils # Immature Plt Fraction PT INR APTT Sample Site Art Line ABG pH 7.29 L ABG pCO2 43 ABG pO2 92 ABG HCO3 20 L ABG Total CO2 22 ABG O2 Saturation 96 ABG Base Excess -6 L Andrew Test N/A Respiration Rate O2 Delivery Device Adult Vent Blood Gas Modality CPAP/PS Inspired O2 40.0 Tidal Volume PEEP Pressure Support 5 Sodium Potassium Chloride Carbon Dioxide BUN Creatinine Est GFR ( Amer) Est GFR (Non-Af Amer) BUN/Creatinine Ratio Glucose POC Glucose 109 H 105 H Calculated Osmolality Calcium Magnesium 06/12/17 06/12/17 06/12/17 12:14 12:59 13:12 WBC RBC Hgb Hct MCV MCH MCHC RDW Plt Count MPV Immature Gran % Seg Neutrophils % Lymphocytes % Monocytes % Eosinophils % Basophils % Neutrophils # Lymphocytes # Monocytes # Eosinophils # Basophils # Immature Plt Fraction PT INR APTT Sample Site ABG pH 7.31 L ABG pCO2 42 ABG pO2 65 L ABG HCO3 21 ABG Total CO2 22 ABG O2 Saturation 91 L ABG Base Excess -5 L Andrew Test Respiration Rate O2 Delivery Device Blood Gas Modality NCPAP Inspired O2 2.0 Tidal Volume PEEP Pressure Support Sodium Potassium Chloride Carbon Dioxide BUN Creatinine Est GFR ( Amer) Est GFR (Non-Af Amer) BUN/Creatinine Ratio Glucose POC Glucose 110 H 112 H Calculated Osmolality Calcium Magnesium 06/12/17 16:17 WBC RBC Hgb Hct MCV MCH MCHC RDW Plt Count MPV Immature Gran % Seg Neutrophils % Lymphocytes % Monocytes % Eosinophils % Basophils % Neutrophils # Lymphocytes # Monocytes # Eosinophils # Basophils # Immature Plt Fraction PT INR APTT Sample Site ABG pH ABG pCO2 ABG pO2 ABG HCO3 ABG Total CO2 ABG O2 Saturation ABG Base Excess Andrew Test Respiration Rate O2 Delivery Device Blood Gas Modality Inspired O2 Tidal Volume PEEP Pressure Support Sodium Potassium Chloride Carbon Dioxide BUN Creatinine Est GFR ( Amer) Est GFR (Non-Af Amer) BUN/Creatinine Ratio Glucose POC Glucose 98 H Calculated Osmolality Calcium Magnesium - Impressions Impressions Chest X-Ray 06/12/17 04:00 IMPRESSION: Improving right parahilar and right lower lobe opacity which may represent improving hemorrhage/airspace disease. Patient with history of recent biopsy. The lines and tubes are stable. D/ / 06/12/2017 09:16:19 Logan Andrade MD / hesham Interpreting Provider: Logan Andrade MD - ABG Interpretation ABG results: ABG ABG pH 7.31 pH Units (7.32-7.45) L 06/12/17 13:12 ABG pCO2 42 mmHg (35-45) 06/12/17 13:12 ABG pO2 65 mmHg (85-104) L 06/12/17 13:12 ABG O2 Saturation 91 % (95-98) L 06/12/17 13:12 PT/INR, D-dimer PT 13.7 Seconds (9.4-12.1) H 06/12/17 03:33 Consult Discharge Plan - Plan Referrals: Galen Thurman MD [Primary Care Provider] -
[2017-06-13] MEDS: *HR* OxyCODONE/APAP 5/325 TABLET PO PRN ×2 (02:38→06:51)
[2017-06-13] MEDS: *HR* Morphine 2 MG/ML SYRINGE IVP PRN (03:24)
[2017-06-13 03:40] LABS: Basophils % 0.1 %; Hematocrit 27.3 % (37.5-50.1); Immature Granulocytes % 0.8 % (0-4); Lymphocytes # 1.8 K/mcL (0.6-4.6); Mean Corpuscular HGB Conc 33.3 g/dL (31.6-35.5); Mean Corpuscular Hemoglobin 31.6 pg (28.0-33.3); Mean Corpuscular Volume 94.8 fL (83.0-100.0); Mean Platelet Volume 10.3 fL (9.4-12.4); Monocytes # 2.8 K/mcL (0.0-1.3); Monocytes % 12.3 %; Neutrophils # 17.6 K/mcL (1.6-8.9); Platelet Count 125 K/mcL (140-400); Red Blood Count 2.88 M/mcL (4.19-5.50); Segmented Neutrophils % 78.8 %
[2017-06-13 03:41] LABS: Hemoglobin 9.1 g/dL (12.9-16.9)
[2017-06-13 03:48] LABS: Potassium 4.5 mEq/L (3.5-4.5)
[2017-06-13 03:49] LABS: Calcium 9.2 mg/dL (8.6-10.8)
[2017-06-13] MEDS: 0.9 % Sodium Chloride 1,000 ML IVC SCH ×2 (05:33→19:36)
--- NOTE | 2017-06-13 08:37 | Cardiothoracic Progress Note ---
Date of Encounter: 06/13/17 Time of Encounter: 08:34 - Assessment and plan (1) Coronary arteriosclerosis due to lipid rich plaque Current Visit: Yes Status: Acute Creatinine is stable at 2.17. The chest tubes were discontinued. We will check a stat portable chest x-ray. We will discontinue the Gardner catheter. We will leave the pacemaker off, but attached. We will leave the patient in the ICU today. - Subjective Interval history: The patient complains of mild postoperative pain. Vital Signs, Last 4 Hours Temp Pulse Resp BP Pulse Ox 06/13/17 08:07 98.7 F 06/13/17 08:01 20 91 06/13/17 06:00 80 20 126/74 90 06/13/17 05:00 80 20 134/69 92 Oxgyen Flow Rate Oxygen Flow Rate (LPM) 2 Clinical Data, last 8 Hours Output, Chest Tube Drainage 50 Amount [#4] Output, Chest Tube Drainage 40 Amount [#4] Output, Chest Tube Drainage 10 Amount [#3] Output, Chest Tube Drainage 10 Amount [#3] Output, Chest Tube Drainage 20 Amount [#2] Output, Chest Tube Drainage 20 Amount [#2] Output, Chest Tube Drainage 50 Amount [#1] Output, Chest Tube Drainage 40 Amount [#1] Weight 06/11/17 06/12/17 06/13/17 23:59 23:59 23:59 Weight 76.2 kg 83.5 kg Lungs are clear to percussion and auscultation. The pacer was turned off. He has a heart rate of 81 and it appears to be sinus and regular. All incisions are healing well without signs of infection and the sternum is stable. Chest tube drainage is minimal and there is no air leak. - Labs 06/13/17 03:30 06/13/17 03:30 Lab Results, Last 24 hours 06/13/17 06/13/17 03:30 03:30 WBC 22.4 H Hgb 9.1 L D Hct 27.3 L Plt Count 125 L Sodium 136 Potassium 4.5 Chloride 107 Carbon Dioxide 20 BUN 31 H D Creatinine 2.17 H Glucose 139 H Calcium 9.2 - VTE Reasons for not Prescribing Prophylaxis: Not indicated-Anticoagulated or INR therapeutic Documentation of Mechanical Device: Graduated compression elastic hosiery Consult Discharge Plan - Plan Referrals: Galen Thurman MD [Primary Care Provider] -
[2017-06-13] MEDS: Insulin LISPRO 300 UNITS/3 ML VIAL SQ SCH ×4 (08:57→19:36)
[2017-06-13] MEDS: Chlorhexidine Rinse 15 ML MOUTHWASH MM SCH ×2 (09:02→19:37)
[2017-06-13] MEDS: Aspirin Enteric Coated 81 MG Tablet PO SCH (09:02)
[2017-06-13] MEDS: *HR* Amiodarone 200 MG TABLET PO SCH (09:03)
[2017-06-13] MEDS ORDERED: *HR* Rivaroxaban 15 MG TABLET PO SCH (17:00)
[2017-06-13] MEDS: *HR* HYDROcodone/Acet 5/325 mg TABLET PO PRN ×2 (18:26→23:02)
[2017-06-13] MEDS: Nitroglycerin 25 MG/250 ML INFUS..BTL IVC SCH ×2 (19:19→19:38)
[2017-06-13] MEDS: niCARdipine 40 MG/200 ML MLS IVC SCH ×2 (19:19→23:23)
[2017-06-13] MEDS: Norepinephrine 4 MG in D5% in Water 250 ML IVC SCH (19:20)
[2017-06-14] MEDS: *HR* HYDROcodone/Acet 5/325 mg TABLET PO PRN ×4 (04:01→23:54)
[2017-06-14 04:03] LABS: Hematocrit 24.2 % (37.5-50.1); Hemoglobin 8.3 g/dL (12.9-16.9); Immature Granulocytes % 0.8 % (0-4); Lymphocytes # 1.5 K/mcL (0.6-4.6); Lymphocytes % 9.3 %; Mean Corpuscular HGB Conc 34.3 g/dL (31.6-35.5); Mean Corpuscular Hemoglobin 31.7 pg (28.0-33.3); Mean Corpuscular Volume 92.4 fL (83.0-100.0); Monocytes # 1.9 K/mcL (0.0-1.3); Neutrophils # 12.4 K/mcL (1.6-8.9); Platelet Count 141 K/mcL (140-400); Red Blood Count 2.62 M/mcL (4.19-5.50); Red Cell Distribution Width 14.6 % (11.5-14.5); Segmented Neutrophils % 77.9 %
[2017-06-14 04:13] LABS: BUN/Creatinine Ratio 23 (6-26); Blood Urea Nitrogen 29 mg/dL (8-26); Calcium 9.4 mg/dL (8.6-10.8); Carbon Dioxide 21 mEq/L (19-29); Chloride 106 mEq/L (98-109); Glucose 115 mg/dL (70-99); Osmolality,Calculated 287 (280-300); Potassium 4.2 mEq/L (3.5-4.5); Sodium 135 mEq/L (136-145); eGFR For African Americans > 60 (> 60); eGFR For Non-African Americans 57 (> 60)
[2017-06-14] MEDS: niCARdipine 40 MG/200 ML MLS IVC SCH (04:56)
--- NOTE | 2017-06-14 07:32 | Cardiothoracic Progress Note ---
Date of Encounter: 06/14/17 Time of Encounter: 07:30 - Assessment and plan (1) CAD (coronary artery disease) Current Visit: Yes Status: Acute The patient is recovering well from his CABG 2 and modified Maze procedure. Unfortunately, his rhythm has reverted to his chronic atrial fibrillation state despite medical therapy. A beta delilah will be admitted today to help control the rate. The patient will be transferred to a stepdown unit when a bed is available. The assessment and plan as outlined above was discussed with the patient and/or family members who expressed understanding and agreement. All questions were answered. Qualifiers: Coronary Disease-Associated Artery/Lesion type: [place] artery [place] vs. transplanted heart: [place] heart Associated angina: without angina Qualified Code(s): I25.10 - Atherosclerotic heart disease of [place] coronary artery without angina pectoris - Subjective Procedure(s) Performed: POD#3 S/P CABG2, modified Maze procedure Interval history: The patient remained him in a stable overnight. Currently, he is sitting in a chair at the bedside without complaints. He is breathing comfortably. Vital Signs, Last 4 Hours Pulse Resp BP Pulse Ox 06/14/17 06:00 111 20 113/74 95 06/14/17 05:00 112 20 109/81 96 06/14/17 04:10 15 94 06/14/17 04:00 107 22 144/102 95 Oxgyen Flow Rate Oxygen Flow Rate (LPM) 4 Clinical Data, last 8 Hours Output, Urine Amount 250 Output, Urine Amount 420 Weight 06/12/17 06/13/17 06/14/17 23:59 23:59 23:59 Weight 83.5 kg 82.8 kg - Physical Examination General: Conversant, No Apparent Distress Neck: No JVD, Normal carotid pulses Cardiac: Normal S1 and S2, No Murmur, Other (Irregular rate and rhythm (atrial fibrillation).) Incision: No signs of infection, Dry/intact dressing Sternum: Stable Pacing Wires: In place Lungs: Normal Breath Sounds, No Wheeze, Rales, Rhonchi Neuro: Alert and responsive, No focal deficits noted Vascular: Normal capillary refill Extremities: No Clubbing, No Cyanosis, No Edema - Labs 06/14/17 03:55 06/14/17 03:55 Lab Results, Last 24 hours 06/14/17 06/14/17 03:55 03:55 WBC 15.9 H Hgb 8.3 L Hct 24.2 L Plt Count 141 Sodium 135 L Potassium 4.2 Chloride 106 Carbon Dioxide 21 BUN 29 H Creatinine 1.25 Glucose 115 H Calcium 9.4 - VTE Reasons for not Prescribing Prophylaxis: Not indicated-Anticoagulated or INR therapeutic Documentation of Mechanical Device: Graduated compression elastic hosiery Consult Discharge Plan - Plan Referrals: Galen Thurman MD [Primary Care Provider] -
[2017-06-14] MEDS ORDERED: *HR* LORazepam 2 MG/ML VIAL IVP PRN (07:45)
[2017-06-14] MEDS ORDERED: *HR* OxyCODONE/APAP 5/325 TABLET PO PRN (07:45)
[2017-06-14] MEDS ORDERED: Insulin Regular, Human 100 UNIT/ML IV PRN (07:45)
[2017-06-14] MEDS ORDERED: *HR* Dextrose 50 % in Water (Syg) 50 ML SYRINGE IVP PRN (07:45)
[2017-06-14] MEDS ORDERED: Ondansetron 4 MG/2 ML VIAL IVP PRN (07:45)
[2017-06-14] MEDS ORDERED: Acetaminophen 325 MG TABLET PO PRN (07:45)
[2017-06-14] MEDS ORDERED: *HR* Morphine 2 MG/ML SYRINGE IVP PRN (07:45)
[2017-06-14] MEDS ORDERED: *HR* Promethazine 25 MG/ML VIAL IVP PRN (07:45)
[2017-06-14] MEDS ORDERED: Nitroglycerin 0.4 MG TAB.SUBL SL PRN (07:45)
[2017-06-14] MEDS: *HR* Amiodarone 200 MG TABLET PO SCH (08:58)
[2017-06-14] MEDS: Chlorhexidine Rinse 15 ML MOUTHWASH MM SCH ×2 (08:59→19:42)
[2017-06-14] MEDS: Aspirin Enteric Coated 81 MG Tablet PO SCH (08:59)
[2017-06-14] MEDS: Insulin LISPRO 300 UNITS/3 ML VIAL SQ SCH ×2 (12:08→16:22)
[2017-06-14] MEDS: *HR* Rivaroxaban 15 MG TABLET PO SCH (16:25)
[2017-06-14] MEDS ORDERED: Insulin LISPRO 300 UNITS/3 ML VIAL SQ SCH (21:00)
[2017-06-15] MEDS: *HR* Amiodarone 200 MG TABLET PO SCH (08:13)
[2017-06-15] MEDS: Aspirin Enteric Coated 81 MG Tablet PO SCH (08:14)
[2017-06-15] MEDS: Chlorhexidine Rinse 15 ML MOUTHWASH MM SCH ×2 (08:14→21:26)
[2017-06-15] MEDS: Insulin LISPRO 300 UNITS/3 ML VIAL SQ SCH ×3 (08:15→18:01)
--- NOTE | 2017-06-15 08:28 | Cardiothoracic Progress Note ---
Date of Encounter: 06/15/17 Time of Encounter: 08:25 - Assessment and plan (1) CAD (coronary artery disease) Current Visit: Yes Status: Acute The patient is recovering well from his CABG 2 and modified Maze procedure. He remains in atrial fibrillation despite medical therapy. The beta delilah dosage will be increased today to help control the rate. The patient will be begain ambulating in the hallways today. The assessment and plan as outlined above was discussed with the patient and/or family members who expressed understanding and agreement. All questions were answered. Qualifiers: Coronary Disease-Associated Artery/Lesion type: [place] artery [place] vs. transplanted heart: [place] heart Associated angina: without angina Qualified Code(s): I25.10 - Atherosclerotic heart disease of [place] coronary artery without angina pectoris - Subjective Procedure(s) Performed: POD#4 S/P CABG2, modified Maze procedure Interval history: The patient remained him in a stable overnight. Currently, he is sitting in a chair at the bedside without complaints. He is breathing comfortably. Vital Signs, Last 4 Hours Temp Pulse Resp BP Pulse Ox 06/15/17 07:32 18 93 06/15/17 07:27 98.0 F 110 20 125/97 93 Oxgyen Flow Rate Oxygen Flow Rate (LPM) 4 Weight 06/13/17 06/14/17 06/15/17 23:59 23:59 23:59 Weight 82.8 kg 83.5 kg - Physical Examination General: Conversant, No Apparent Distress Neck: No JVD, Normal carotid pulses Cardiac: Normal S1 and S2, No Murmur, Other (Irregular rate and rhythm (atrial fibrillation).) Incision: No signs of infection, Dry/intact dressing Sternum: Stable Pacing Wires: In place Lungs: Normal Breath Sounds, No Wheeze, Rales, Rhonchi Neuro: Alert and responsive, No focal deficits noted Vascular: Normal capillary refill Musculoskeletal: No Chest Wall Tenderness Extremities: No Clubbing, No Cyanosis, No Edema - Labs 06/14/17 03:55 06/14/17 03:55 - VTE Reasons for not Prescribing Prophylaxis: Not indicated-Anticoagulated or INR therapeutic Documentation of Mechanical Device: Intermittent pneumatic compression device Consult Discharge Plan - Plan Referrals: Galen Thurman MD [Primary Care Provider] -
--- NOTE | 2017-06-15 13:30 | Oncology Inp Progress Note ---
Date of Encounter: 06/15/17 Time of Encounter: 12:00 (1) Lung nodule Current Visit: Yes Status: Acute Assessment and plan: Right lower lobe pulmonary nodule measuring 1.5 cm with spiculated margin, final bx reviewed--well to mederately diff adenoca Imaging reviewed indeterminate liver lesion noted. PET outpat after few wks. He is s/p recent surgery The patient has undergone coronary artery bypass grafting on 06/11 2017 recovering well. Discussed pathology findings with patient and his , follow up plan discussed Patient stated understanding of the above. Oncology: Subj Interval history: s/p CABGx2, he is wk, recovering very well - Constitutional Vitals: Vital Signs Temp Pulse Resp BP Pulse Ox 06/15/17 11:14 96 06/15/17 11:06 98.2 F 110 18 127/83 97 06/15/17 08:10 109 06/15/17 07:32 18 93 06/15/17 07:27 98.0 F 110 20 125/97 93 06/15/17 04:10 17 92 06/15/17 04:09 98.3 F 112 20 114/85 93 06/15/17 00:27 18 94 06/14/17 23:51 97.8 F 112 22 131/90 93 06/14/17 20:38 98.1 F 116 19 130/77 97 06/14/17 20:29 18 98 06/14/17 17:10 97.3 F L 122 20 153/98 98 06/14/17 16:00 98.1 F 118 20 116/83 95 06/14/17 15:45 20 96 06/14/17 14:00 100 20 103/75 99 Intake and Output 06/14/17 06/15/17 06/15/17 23:59 07:59 15:59 Intake Total 100 / 100 400 / 400 960 / 960 Output Total 400 / 400 0 / 0 Balance -300 / -300 400 / 400 960 / 960 Intake: Oral 100 / 100 400 / 400 960 / 960 Output: Urine 400 / 400 0 / 0 Other: Meal Dinner Breakfast Percent of Meal Consumed 95% 80% Stool Size Moderate Stool Consistency soft Stool Color Brown # Voids 1 Weight 83.5 kg Blood Glucose* 112 105 104 Patient Weight 06/15/17 23:59 Weight 83.5 kg General appearance: average body habitus - Head Head exam: Present: atraumatic, normal inspection - Eye Eye exam: Present: normal appearance - Respiratory Respiratory exam: Present: CTAB - Cardiovascular Cardiovascular exam: Present: +S1, +S2 - Extremities Exam Extremities exam: Present: pedal edema - Neurological Exam Neurological exam: Present: alert, CN II-XII intact, oriented X3 - Skin Skin exam: Present: dry Oncology: Obj Data - Labs CBC & Chem 7: 06/14/17 03:55 06/14/17 03:55 Labs: Laboratory Results - last 24 hr 06/08/17 06/14/17 06/14/17 12:06 15:34 20:41 POC Glucose 142 H 112 H Crossmatch See Detail - ABG Interpretation ABG results: ABG ABG pH 7.31 pH Units (7.32-7.45) L 06/12/17 13:12 ABG pCO2 42 mmHg (35-45) 06/12/17 13:12 ABG pO2 65 mmHg (85-104) L 06/12/17 13:12 ABG O2 Saturation 91 % (95-98) L 06/12/17 13:12 PT/INR, D-dimer PT 13.7 Seconds (9.4-12.1) H 06/12/17 03:33 Consult Discharge Plan - Plan Referrals: Galen Thurman MD [Primary Care Provider] - (SENT WEB REQUEST ON 06-15-17 @ [id number]) Joan Mercedes CNP [Advanced Practice Nurse] - 06/23/17 1:00 pm Chidi Sunshine MD [Partnered Physician] - 07/15/17 1:15 pm
[2017-06-15] MEDS: *HR* HYDROcodone/Acet 5/325 mg TABLET PO PRN (15:43)
[2017-06-15] MEDS: *HR* Rivaroxaban 15 MG TABLET PO SCH (18:03)
[2017-06-16 04:45] LABS: Basophils % 0.1 %; Eosinophils # 0.1 K/mcL (0.0-0.6); Eosinophils % 0.5 %; Immature Granulocytes % 1.5 % (0-4); Lymphocytes # 2.3 K/mcL (0.6-4.6); Lymphocytes % 16.8 %; Mean Corpuscular HGB Conc 33.3 g/dL (31.6-35.5); Mean Corpuscular Hemoglobin 31.1 pg (28.0-33.3); Mean Corpuscular Volume 93.4 fL (83.0-100.0); Mean Platelet Volume 9.9 fL (9.4-12.4); Monocytes # 2.2 K/mcL (0.0-1.3); Monocytes % 15.7 %; Nucleated Red Blood Cells 0.2 /100 WBC (0); Platelet Count 251 K/mcL (140-400); Red Blood Count 2.57 M/mcL (4.19-5.50); Red Cell Distribution Width 14.3 % (11.5-14.5); Segmented Neutrophils % 65.4 %
[2017-06-16 04:56] LABS: Blood Urea Nitrogen 19 mg/dL (8-26); Carbon Dioxide 25 mEq/L (19-29); Chloride 103 mEq/L (98-109); Glucose 98 mg/dL (70-99); Osmolality,Calculated 278 (280-300); Potassium 4.1 mEq/L (3.5-4.5); Sodium 133 mEq/L (136-145)
[2017-06-16 05:05] LABS: BUN/Creatinine Ratio 23 (6-26); Calcium 8.8 mg/dL (8.6-10.8); eGFR For African Americans > 60 (> 60); eGFR For Non-African Americans > 60 (> 60)
[2017-06-16] MEDS: *HR* HYDROcodone/Acet 5/325 mg TABLET PO PRN ×3 (06:45→21:55)
--- NOTE | 2017-06-16 07:48 | Cardiothoracic Progress Note ---
Date of Encounter: 06/16/17 Time of Encounter: 07:45 - Assessment and plan (1) CAD (coronary artery disease) Current Visit: Yes Status: Acute The patient is recovering well from his CABG 2 and modified Maze procedure. He remains in atrial fibrillation despite medical therapy. The patient will be continue ambulating in the hallways today. He may be discharged in the morning if he continues to do well. The assessment and plan as outlined above was discussed with the patient and/or family members who expressed understanding and agreement. All questions were answered. Qualifiers: Coronary Disease-Associated Artery/Lesion type: [place] artery [place] vs. transplanted heart: [place] heart Associated angina: without angina Qualified Code(s): I25.10 - Atherosclerotic heart disease of [place] coronary artery without angina pectoris - Subjective Procedure(s) Performed: POD#5 S/P CABG2, modified Maze procedure Interval history: The patient remained him in a stable overnight. He was able to ambulate in [facility] hallways yesterday without difficulty. He is breathing comfortably. Vital Signs, Last 4 Hours Temp Pulse Resp BP Pulse Ox 06/16/17 06:34 98.4 F 110 20 126/89 94 06/16/17 04:45 116 20 122/89 96 06/16/17 04:10 115 Oxgyen Flow Rate Oxygen Flow Rate (LPM) 4 Weight 06/14/17 06/15/17 06/16/17 23:59 23:59 23:59 Weight 82.8 kg 83.5 kg 83.7 kg - Physical Examination General: Conversant, No Apparent Distress Neck: No JVD, Normal carotid pulses Cardiac: Normal S1 and S2, No Murmur, Other (Irregular rate and rhythm (atrial fibrillation).) Incision: No signs of infection, Dry/intact dressing Sternum: Stable Pacing Wires: In place Lungs: Normal Breath Sounds, No Wheeze, Rales, Rhonchi Neuro: Alert and responsive, No focal deficits noted Vascular: Normal capillary refill Extremities: No Clubbing, No Cyanosis, No Edema - Labs 06/16/17 04:12 06/16/17 04:12 Lab Results, Last 24 hours 06/16/17 06/16/17 04:12 04:12 WBC 13.7 H Hgb 8.0 L Hct 24.0 L Plt Count 251 D Sodium 133 L Potassium 4.1 Chloride 103 Carbon Dioxide 25 BUN 19 D Creatinine 0.82 Glucose 98 Calcium 8.8 - VTE Reasons for not Prescribing Prophylaxis: Not indicated-Anticoagulated or INR therapeutic Documentation of Mechanical Device: Intermittent pneumatic compression device Consult Discharge Plan - Plan Referrals: Galen Thurman MD [Primary Care Provider] - (SENT WEB REQUEST ON 06-15-17 @ 0235) Joan Mercedes CNP [Advanced Practice Nurse] - 06/23/17 1:00 pm Chidi Sunshine MD [Partnered Physician] - 07/15/17 1:15 pm
[2017-06-16] MEDS: *HR* Amiodarone 200 MG TABLET PO SCH (08:18)
[2017-06-16] MEDS: Aspirin Enteric Coated 81 MG Tablet PO SCH (08:19)
[2017-06-16] MEDS: Chlorhexidine Rinse 15 ML MOUTHWASH MM SCH ×2 (08:19→21:56)
[2017-06-16] MEDS: *HR* Rivaroxaban 15 MG TABLET PO SCH (17:34)
[2017-06-17] MEDS: *HR* HYDROcodone/Acet 5/325 mg TABLET PO PRN (04:15)
[2017-06-17 07:00] VITALS: BP 109/79
--- NOTE | 2017-06-17 07:56 | Discharge Summary ---
Date of Encounter: 06/17/17 Time of Encounter: 07:56 - Discharge Diagnosis (1) CAD (coronary artery disease) Priority: Primary Status: Acute Qualifiers: Coronary Disease-Associated Artery/Lesion type: [place] artery [place] vs. transplanted heart: [place] heart Associated angina: without angina Qualified Code(s): I25.10 - Atherosclerotic heart disease of [place] coronary artery without angina pectoris - Discharge Medications Prescriptions: HYDROcodone/Acet 5/325 mg [[place] 5-325 mg] 1 tab PO Q4HR PRN #42 tablet PRN Reason: Moderate Pain Amiodarone [Cordarone] 200 mg PO DAILY #30 tablet Atorvastatin [Lipitor] 80 mg PO HS #30 tablet Home Medications: Amlodipine/Atorvastatin [Amlodipine-Atorvast 5-40 mg] 1 each PO DAILY 06/08/17 [ History] Aspirin [Lo-Dose Aspirin EC] 81 mg PO DAILY 06/08/17 [History] Lisinopril-HCTZ 20-12.5 [Prinzide 20-12.5] 1 each PO DAILY 06/08/17 [History] Meloxicam [Mobic] 15 mg PO DAILY 06/08/17 [History] Metoprolol XL (24 HR) Succ [Toprol Xl] 25 mg PO BID 06/08/17 [History] Rivaroxaban [Xarelto] 20 mg PO DAILY 06/08/17 [History] Tizanidine HCl [Zanaflex] 4 mg PO TID PRN 06/08/17 [History] Amiodarone [Cordarone] 200 mg PO DAILY #30 tablet 06/17/17 [Rx] Atorvastatin [Lipitor] 80 mg PO HS #30 tablet 06/17/17 [Rx] HYDROcodone/Acet 5/325 mg [[place] 5-325 mg] 1 tab PO Q4HR PRN #42 tablet [Rx] Nitroglycerin 0.4 mg SL Q5MIN PRN tab.subl 06/17/17 [Rx] Allergies/Adverse Reactions: 3 Allergy/AdvReac Type Severity Reaction Status Date / Time No Known Allergies Allergy Verified 04/02/15 18:03 Date of admission: 06/08/17 10:18 Primary care physician: Galen Thurman MD Consults: 06/08/17 10:20 Consult to Cardiothoracic Surgery [CONS] Routine Consulting Provider: Cardiothoracic Surgery [place] Reason for Consult: 3VCAD, eval for CABG; a fib Call Completed: Yes 06/08/17 11:21 Consult to Vascular Surgery [CONS] Routine Consulting Provider: Vascular Surgery [place] Reason for Consult: carotid disease, ? AAA-patient known to Dr. Jose Call Completed: Yes 06/08/17 12:57 Consult to Internet Marketing Consultant [CONS] Routine Reason for SW Consult: Post CABG discharge planning 06/09/17 12:33 Consult to Interventional Radiology [CONS] Routine Consulting Provider: Radiology Interventional [place] Reason for Consult: biopsy of RLL lung lesion Call Completed: Yes 06/10/17 12:06 Consult to Oncology [CONS] Routine Consulting Provider: Oncology [facility] Reason for Consult: Patient with lung biopsy today with preliminary results showing Non-small Lung cancer-- per discussion with Dr. Yuen and Dr. Sunshine (CT Surgery ), recommend consult. Patient is pending CABG in am 06/11/17. Call Completed: Yes 06/11/17 12:42 Consult to Cardiac Rehabilitation-Phase1 [CONS] Routine Comment: Reason for Consult: Post open heart Call Completed: Yes Consult to Internet Marketing Consultant [CONS] Routine Reason for SW Consult: open heart Procedure(s) Performed: 1. Cardiac catheterization performed June 08, 2017. 2. CT-guided right lower lobe lung biopsy performed June 10, 2017. 3. CABG 2 (PEETRSEN to LAD, SVG to OM1) performed June 11, 2017. 4. Modified maze procedure with radiofrequency ablation performed June 11, 2017. 5. Left atrial appendage stapling performed June 11, 2017. 6. Intraoperative intra-aortic balloon pump insertion performed June 11, 2017. 7. Endoscopic vein harvesting, greater saphenous vein from right lower extremity performed June 11, 2017. Discharging clinician: Janneth Moreira Anticipated date of discharge: 06/17/17 - Patient Status Disposition: Home, Self-Care Condition: Good Functional capacity at discharge: independent ambulation Overall status at discharge: patient is progressing back to baseline - Discharge Instructions Follow Up With: Galen Thurman MD [Primary Care Provider] - 06/22/17 1:15 pm () Joan Mercedes CNP [Advanced Practice Nurse] - 06/23/17 1:00 pm Chidi Sunshine MD [Partnered Physician] - 07/15/17 1:15 pm - Diet and Activity Activity: sternal precautions, no driving for four weeks, no lifting greater than 10 pounds for eight weeks Diet: low fat, low cholesterol - Hospital Course Hospital course: Mr. Posadas is a 72 year old pretense of man with new onset atrial fibrillation. The patient also complains of exertional right arm pain and neck pain with exertion. The patient underwent an echocardiogram in May 2017 which revealed an LVEF 45% with no valvular dysfunction. Subsequent cardiac catheterization revealed severe two-vessel CAD. He was recommended for CABG. A preoperative chest x-ray showed a right lower lobe lung mass and the patient underwent CT-guided needle biopsy on June 10, 2017. The pathology revealed a well to moderately differentiated adenocarcinoma. He was recommended for CABG prior to addressing the right lower lobe lung adenocarcinoma. The patient underwent a CABG 2 with modified Maze procedure using any frequency ablation and a left atrial appendage stapling on June 11, 2017. Immediately postoperatively the patient was in normal sinus rhythm; however, a few hours later his heart rhythm changed to atrial fibrillation. He was continued on medical therapy, but remained in atrial fibrillation at time of discharge. He was anticoagulated with Xarelto. He was transferred to the stepdown unit on POD #3 and was ambulating difficulty. He was discharged home on POD #6. - Time Spent with Patient Total time spent providing and/or coordinating discharge services: Physical Examination Vital Signs, Last 4 Hours Temp Pulse Resp BP Pulse Ox 06/17/ 06:56 98.1 F 124 20 109/79 98 06/17/ 05:19 98.4 F 128 16 107/76 98 General: Conversant, No Apparent Distress HEENT: Atraumatic, Normocephaly, Trachea midline Neck: No JVD, Normal carotid pulses Cardiac: Normal S1 and S2, No Murmur, Other (Irregular rate and rhythm (atrial fibrillation).) Lungs: Normal Breath Sounds, No Wheeze, Rales, Rhonchi Neuro: Alert and responsive, No focal deficits noted Vascular: Normal capillary refill Musculoskeletal: No Chest Wall Tenderness Extremities: No Clubbing, No Cyanosis, No Edema Open Heart Registry Aspirin Cont/Prescribed at DC: Yes Beta [place] Cont/Prescribed at DC: Yes Statin Cont/Prescribed at DC: Yes SERA/ARB Cont/Prescribed at DC: Yes - VTE Reasons for not Prescribing Prophylaxis: Not indicated-Anticoagulated or INR therapeutic Documentation of Mechanical Device: Intermittent pneumatic compression device
[2017-06-17] MEDS: *HR* Amiodarone 200 MG TABLET PO SCH (08:16)
[2017-06-17] MEDS: Aspirin Enteric Coated 81 MG Tablet PO SCH (08:16)
[2017-06-17] MEDS: Chlorhexidine Rinse 15 ML MOUTHWASH MM SCH (08:16)
== END 2017-06-17 10:42 | disposition home or self-care (01) | DRG 229 ==
LOC: INVDIALAB 07:26 → 2NENU 10:18 → ICNU 06-11 08:37 → 2NNU 06-14 17:05
PROVIDERS: ADMIT Internal Medicine Interventional Cardiology; ATTEND Thoracic Surgery (Cardiothoracic Vascular Surgery)

== ENCOUNTER 2017-11-21 17:48 | Inpatient (IN) ==
--- NOTE | 2017-11-21 18:50 | Emergency Department Note ---
Disposition Clinical Impression: Acute kidney injury, Transaminitis GI bleed Qualifiers: GI bleed type/associated pathology: unspecified gastrointestinal hemorrhage type Qualified Code(s): K92.2 - Gastrointestinal hemorrhage, unspecified Anemia Qualifiers: Anemia type: unspecified type Qualified Code(s): D64.9 - Anemia, unspecified CAD (coronary artery disease) Qualifiers: Coronary Disease-Associated Artery/Lesion type: [place] artery [place] vs. transplanted heart: [place] heart Associated angina: without angina Qualified Code(s): I25.10 - Atherosclerotic heart disease of [place] coronary artery without angina pectoris Disposition: Hospice - Medical Facility Condition: Fair Time of Disposition: 20:59 Abdominal Pain HPI - General Chief Complaint: ED Abdominal Pain Stated Complaint: abd/back/ and all over pain Time Seen by Provider: 11/21/17 17:55 Source: patient, family Nursing Notes Reviewed: Yes Vital Signs Reviewed: Yes - History of Present Illness HPI Narrative: 72-year-old male history of CABG, recent diagnosis of lung adenocarcinoma, atrial fibrillation on Xarelto presenting to emergency department for abdominal pain. Patient states over the past week or so he is been experiencing some abdominal pain with associated nausea. Roughly 5 days ago he has noted some black dark stool. He informed his 2 days ago about this. He is noted that his skin appears a little issuer than usual. Today he looked in the mere thought he was a little more yellow as well. He denies any injury or trauma to the belly. He describes as a dull ache to his abdomen initially pointing at the epigastric but then stayed all throughout his belly. He sees Dr. Conroy and Dr. Jim, he has been undergoing radiation therapy for his lung adenocarcinoma. He denies any recent illness, fever, cough or chest pain or shortness of breath. Pt Subjective Complaint: abdominal pain Pain Scale: 10 - Related Data Home Medications Medication Instructions Recorded Confirmed Amlodipine/Atorvastatin 1 each PO DAILY 06/08/17 10/28/17 [Amlodipine-Atorvast 5-40 mg] Aspirin [Lo-Dose Aspirin EC] 81 mg PO DAILY 06/08/17 10/28/17 Lisinopril-HCTZ 20-12.5 [Prinzide 1 each PO DAILY 06/08/17 10/28/17 20-12.5] Meloxicam [Mobic] 15 mg PO DAILY 06/08/17 10/28/17 Metoprolol XL (24 HR) Succ [Toprol 25 mg PO BID 06/08/17 10/28/17 Xl] Rivaroxaban [Xarelto] 20 mg PO DAILY 06/08/17 10/28/17 traZODone [TraZODone] 50 mg PO HS 07/13/17 10/28/17 Previous Rx's Medication Instructions Recorded Atorvastatin [Lipitor] 80 mg PO HS #30 tablet 06/17/17 HYDROcodone/Acet 5/325 mg [[place] 1 tab PO Q4HR PRN #42 tablet 06/17/17 5-325 mg] Allergies Allergy/AdvReac Type Severity Reaction Status Date / Time No Known Allergies Allergy Verified 10/28/17 14:00 All systems ED: reviewed and negative except as stated. Review of Systems: As Per HPI Constitutional: Reports: weakness. Denies: fever, chills ENT ED: Denies: congestion Cardiovascular: Denies: chest pain Respiratory: Denies: cough, dyspnea Gastrointestinal: Reports: abdominal pain, nausea, melena. Denies: vomiting, diarrhea Genitourinary: Denies: urgency, dysuria Musculoskeletal: Reports: back pain. Denies: neck pain Integumentary: Denies: rash, abrasion Neurological: Denies: headache Abdominal Pain PMH - Past Medical History Medical history: Reports: arthritis, atrial fibrillation, cancer, COPD, hyperlipidemia, hypertension, myocardial infarction Male Surgical History: Reports: coronary bypass (CABG) Psychiatric history: Reports: no psych history - Social History Smoking status: Former smoker Alcohol use: Reports: none Drug use: Reports: none Physical Exam - General Limitations: no limitations General appearance: alert, in no apparent distress - Head Head exam: atraumatic, normocephalic, normal inspection - Eye Eye exam: Present: normal appearance, PERRL, EOMI, other (Pale conjunctiva) - ENT ENT exam: normal exam, normal oropharynx, mucous membranes dry - Neck Neck exam: Present: normal inspection, full ROM, trachea midline - Chest Chest inspection: Present: normal inspection, symmetric chest wall rise - Respiratory Respiratory exam: Present: normal lung sounds bilaterally - Cardiovascular Cardiovascular exam: Present: normal rhythm, bradycardia, normal heart sounds - Abdominal Exam Abdominal exam: Present: soft, tenderness, normal bowel sounds. Absent: distention, guarding, rebound, rigidity Abdominal tenderness: Present: diffuse - Extremities Exam Extremities exam: Present: normal inspection, full ROM, normal capillary refill. Absent: tenderness, pedal edema, calf tenderness - Neurological Exam Neurological exam: Present: alert, oriented X3 - Psychiatric Psychiatric exam: Present: normal affect, normal mood - Skin Skin exam: Present: warm, dry, intact, other (Slightly jaundiced and pale) Course Course Narrative: Patient presents with diffuse abdominal pain for the past several days. Clinically he looks pale and suspect a G.I. bleed given that he is on Xarelto. We performed a CT of the abdomen and pelvis which revealed a infrarenal aortic aneurysm 4.8 cm. there was also interval development of some stranding around the gallbladder concerning for inflammation or infection. We initially ordered and ultrasound to evaluate the gallbladder the family received the critical hemoglobin of 4.6 confirming likely G.I. bleed. Patient was typing crossed for 2 units of packed red blood cells. His blood pressures continue to be stable. He did have a mild leukocytosis but due to the critical nature may be further evaluated in the intensive care unit when more stable after blood transfusions. Review of his other labs shows elevated ALT greater than 500 and AST of 599. He also has acute kidney injury with a creatinine 2.1. This could be likely secondary to volume loss as his BUN is also elevated which could be suggestive of the upper G.I. bleed. At this time no additional imaging to be performed. Plan for central venous catheter placement for blood transfusion. Patient will be admitted to the test care unit and in fair condition. Impression is acute kidney injury and anemia likely GI bleed. - Consultations Consultation #1: Spoke with on-call hospitalist izzy Singh to admit to intensive care unit for anemia likely secondary to G.I. bleed. No further orders at this time. We spoke to the resident of the intensive care unit and they will place central venous catheter. Patient systolic blood pressure remains in the 100. He continues to mentate well. Consultation #2: Spoke to the on-call Manufacturing Engineer Chief Dr. Mckinley regarding the patient's case and presentation. He will be happy to consult and evaluate the patient given his critical nature. He does requests to make the patient NPO for possible intervention. No additional orders at this time. Vital Signs Temperature 98.1 F 11/21/17 17:56 Pulse Rate 53 11/21/17 17:56 Respiratory Rate 16 11/21/17 17:56 Blood Pressure 103/51 11/21/17 17:56 O2 Sat by Pulse Oximetry 94 11/21/17 17:56 Temperature 98.1 F 11/21/17 17:56 Pulse Rate 50 11/21/17 20:21 Respiratory Rate 14 11/21/17 20:21 Blood Pressure 106/41 11/21/17 20:21 O2 Sat by Pulse Oximetry 100 11/21/17 20:21 Oxygen Delivery Oxygen Delivery Room Air Abdominal Pain - MDM Narrative Medical decision making narrative: Patient was discussed with my attending physician who agrees with ED management and final disposition. They independently evaluated the patient. Please refer to their attestation to this encounter for additional information. This note was generated by [employer] voice recognition software and as a result grammatical or spelling errors may occur using this program. - Medical Records Medical records reviewed: Yes I reviewed the patient's medical records. - Lab Data Lab results reviewed: Yes I reviewed the patient's lab results. Result diagrams: 11/21/17 18:54 11/21/17 18:54 Lab Results 11/21/17 11/21/17 11/21/17 Range/Units 18:54 18:54 19:47 WBC 11.7 H (4.3-11.1) K/mcL RBC 2.19 L (4.19-5.50) M/mcL Hgb 4.6 L* (12.9-16.9) g/dL Hct 17.0 L (37.5-50.1) % MCV 77.6 L (83.0-100.0) fL MCH 21.0 L (28.0-33.3) pg MCHC 27.1 L (31.6-35.5) g/dL RDW 18.6 H (11.5-14.5) % Plt Count 288 (140-400) K/mcL MPV 12.0 (9.4-12.4) fL Immature Gran % 0.5 (0-4) % Seg Neutrophils % 76.8 % Lymphocytes % 9.7 % Monocytes % 12.5 % Eosinophils % 0.5 % Basophils % 0.0 % Neutrophils # 9.0 H (1.6-8.9) K/mcL Lymphocytes # 1.1 (0.6-4.6) K/mcL Monocytes # 1.5 H (0.0-1.3) K/mcL Eosinophils # 0.1 (0.0-0.6) K/mcL Basophils # 0.0 (0.0-0.2) K/mcL Nucleated RBCs/100 WBC 1.5 H (0) /100 WBC Platelet Estimate Normal (Normal) Large Platelets Present A (Not Present) Polychromasia 1+ A (Not Present) Hypochromasia Present A (Not Present) Poikilocytosis 1+ A (Not Present) Anisocytosis 2+ A (Not Present) Macrocytosis Present A (Not Present) Ovalocytes 1+ A (Not Present) PT (9.4-12.1) Seconds INR APTT (26.0-36.0) Seconds Sodium 137 (136-145) mEq/L Potassium 4.3 (3.5-5.1) mEq/L Chloride 104 (98-107) mEq/L Carbon Dioxide 16 L (23-29) mEq/L BUN 56 H (8-23) mg/dL Creatinine 2.10 H (0.70-1.30) mg/dL Est GFR ( Amer) 38 L (> 60) Est GFR (Non-Af Amer) 31 L (> 60) BUN/Creatinine Ratio 27 H (6-26) Glucose 113 H (70-105) mg/dL Calculated Osmolality 300 (280-300) Calcium 9.7 (8.6-10.3) mg/dL Total Bilirubin 0.9 (0.3-1.0) mg/dL Direct Bilirubin 0.3 H (0.0-0.2) mg/dL Indirect Bilirubin 0.6 (0.0-1.2) mg/dL AST 599 H (13-39) Units/L ALT > 500 H (7-52) Units/L Alkaline Phosphatase 94 (34-104) Units/L Serum Total Protein 6.7 (6.4-8.9) g/dL Albumin 4.4 (3.5-5.7) g/dL Globulin 2.3 L (2.4-3.5) g/dL Albumin/Globulin Ratio 1.9 (1.1-2.2) Lipase 49 (11-82) Units/L Blood Type O POSITIVE Antibody Screen NEGATIVE Crossmatch See Detail 11/21/17 Range/Units 19:47 WBC (4.3-11.1) K/mcL RBC (4.19-5.50) M/mcL Hgb (12.9-16.9) g/dL Hct (37.5-50.1) % MCV (83.0-100.0) fL MCH (28.0-33.3) pg MCHC (31.6-35.5) g/dL RDW (11.5-14.5) % Plt Count (140-400) K/mcL MPV (9.4-12.4) fL Immature Gran % (0-4) % Seg Neutrophils % % Lymphocytes % % Monocytes % % Eosinophils % % Basophils % % Neutrophils # (1.6-8.9) K/mcL Lymphocytes # (0.6-4.6) K/mcL Monocytes # (0.0-1.3) K/mcL Eosinophils # (0.0-0.6) K/mcL Basophils # (0.0-0.2) K/mcL Nucleated RBCs/100 WBC (0) /100 WBC Platelet Estimate (Normal) Large Platelets (Not Present) Polychromasia (Not Present) Hypochromasia (Not Present) Poikilocytosis (Not Present) Anisocytosis (Not Present) Macrocytosis (Not Present) Ovalocytes (Not Present) PT 61.8 H* (9.4-12.1) Seconds INR 5.5 H* APTT 40.8 H (26.0-36.0) Seconds Sodium (136-145) mEq/L Potassium (3.5-5.1) mEq/L Chloride (98-107) mEq/L Carbon Dioxide (23-29) mEq/L BUN (8-23) mg/dL Creatinine (0.70-1.30) mg/dL Est GFR ( Amer) (> 60) Est GFR (Non-Af Amer) (> 60) BUN/Creatinine Ratio (6-26) Glucose (70-105) mg/dL Calculated Osmolality (280-300) Calcium (8.6-10.3) mg/dL Total Bilirubin (0.3-1.0) mg/dL Direct Bilirubin (0.0-0.2) mg/dL Indirect Bilirubin (0.0-1.2) mg/dL AST (13-39) Units/L ALT (7-52) Units/L Alkaline Phosphatase (34-104) Units/L Serum Total Protein (6.4-8.9) g/dL Albumin (3.5-5.7) g/dL Globulin (2.4-3.5) g/dL Albumin/Globulin Ratio (1.1-2.2) Lipase (11-82) Units/L Blood Type Antibody Screen Crossmatch - Radiology Data Radiology results reviewed: Yes I reviewed the patient's radiology results. Abdomen/Pelvis CT 11/21/17 18:16 IMPRESSION: Interval development of abnormal stranding about the contracted gallbladder concerning for an inflammatory/infectious process. Gallbladder ultrasound could be utilized for further evaluation. There is a 4.8 cm infrarenal abdominal aortic aneurysm. The remainder of the exam is unchanged from CT performed 4 days earlier. RECOMMENDATIONS: Managing Abdominal Aortic Aneurysms 4.5-5.4 cm: Every 6 months. Recommend vascular consultation. Reference: J Vasc Surg. 2008;50(4 Suppl):S2-49 D/ / 11/21/2017 19:02:09 Benny Rivera MD / Sherron Butler Interpreting Provider: Benny Rivera MD - EKG Data EKG attestation: Yes I reviewed and interpreted this EKG. EKG results narrative: EKG performed 1908 sinus bradycardia 52 beats per minute, normal axis, Q waves seen in the inferior leads, inverted T waves seen through the lateral and inferior leads this is consistent from his prior EKG performed 06/11/2017. No acute ischemic changes. Critical Care Time Critical Care Time: Yes Total Critical Care Time: 60 Attestation: Care time was 60 minutes to address severe anemia, acute kidney injury, and abdominal pain. Attestation Statement - Attestation Attestation: Patient was seen with resident physician. I reviewed the history, physical, assessment and plan, and agree with the findings. I also personally evaluated this patient and had [id number] time with this patient. 72-year-old male presents to the emergency Department chief complaint of abdominal pain and dark stools. Fairly said dark stool since Wednesday but only told his on and they came in today. He is recently diagnosed with cancer. Had a PET study earlier this week. He got pale and then a little bit yellow which ultimately prompted the visit. Denies fevers or chills. No chest pain or shortness of breath. Review of systems was reviewed and as above remainder was negative. Physical exam vital signs are stable. ENT is unremarkable patient does appear pale. Heart regular rhythm and rate. Lungs clear. [place] soft and diffusely tender without guarding or rigidity. No pulsatile masses. Extremities unremarkable. Neurologically intact. Skin no rashes. Psych normal. ED course I we will do workup for GI bleed and treat accordingly. Patient had significant anemia. Hemoglobin was 4.6. IVs were placed. GI was contacted. Hospitalist service was contacted. Hospital service agreed to place central line in the ICU. Patient will be admitted to the intensive care unit. Critical care time was 60 minutes. Hemodynamically patient remained stable while in the emergency department. I agree with resident physician assessment and plan. Critical care time 35
[2017-11-21 19:06] LABS: Mean Corpuscular HGB Conc 27.1 g/dL (31.6-35.5); Red Cell Distribution Width 18.6 % (11.5-14.5)
[2017-11-21 19:07] LABS: Eosinophils # 0.1 K/mcL (0.0-0.6); Eosinophils % 0.5 %; Immature Granulocytes % 0.5 % (0-4); Lymphocytes # 1.1 K/mcL (0.6-4.6); Lymphocytes % 9.7 %; Mean Corpuscular Volume 77.6 fL (83.0-100.0); Monocytes # 1.5 K/mcL (0.0-1.3); Monocytes % 12.5 %; Nucleated Red Blood Cells 1.5 /100 WBC (0); Platelet Count 288 K/mcL (140-400); Red Blood Count 2.19 M/mcL (4.19-5.50); Segmented Neutrophils % 76.8 %
[2017-11-21 19:28] LABS: Hemoglobin 4.6 g/dL (12.9-16.9)
[2017-11-21 19:32] LABS: Anisocytosis 2+ (Not Present); Hypochromasia Present (Not Present); Large Platelets Present (Not Present); Macrocytosis Present (Not Present); Ovalocytes 1+ (Not Present); Platelet Estimate Normal (Normal); Poikilocytosis 1+ (Not Present); Polychromasia 1+ (Not Present)
[2017-11-21 19:47] LABS: Alanine Aminotransferase > 500 Units/L (7-52); Albumin 4.4 g/dL (3.5-5.7); Albumin/Globulin Ratio 1.9 (1.1-2.2); Alkaline Phosphatase 94 Units/L (34-104); Aspartate Amino Transferase 599 Units/L (13-39); BUN/Creatinine Ratio 27 (6-26); Bilirubin,Direct 0.3 mg/dL (0.0-0.2); Bilirubin,Indirect 0.6 mg/dL (0.0-1.2); Bilirubin,Total 0.9 mg/dL (0.3-1.0); Blood Urea Nitrogen 56 mg/dL (8-23); Calcium 9.7 mg/dL (8.6-10.3); Carbon Dioxide 16 mEq/L (23-29); Chloride 104 mEq/L (98-107); Globulin 2.3 g/dL (2.4-3.5); Glucose 113 mg/dL (70-105); Lipase 49 Units/L (11-82); Osmolality,Calculated 300 (280-300); Potassium 4.3 mEq/L (3.5-5.1); Sodium 137 mEq/L (136-145); Total Protein 6.7 g/dL (6.4-8.9); eGFR For African Americans 38 (> 60); eGFR For Non-African Americans 31 (> 60)
--- NOTE | 2017-11-21 19:52 | Internal Med History&Physical ---
<Rick Holliday - Last Filed: 11/21/17 21:24> Date of Encounter: 11/21/17 Time of Encounter: 20:47 Assessment and Plan (1) GI bleed Current visit: Yes Status: Acute Patient with melanotic stools and presenting hemoglobin of 4.6. On Xarelto for atrial fibrillation with concomitant meloxicam use. Suspect upper GI source with epigastric pain, melena, elevated BUN. INR is also 5.5 in the setting of liver compromise with a transaminitis. Hemodynamically stable. Gastroenterology consulted by the emergency department. Plan to transfuse 3 units packed red blood cells. 4 units FFP and 10 vitamin K for INR of 5.5. Serial H&H every 6 hours. NPO Qualifiers: GI bleed type/associated pathology: melena Qualified Code(s): K92.1 - Melena (2) VICTORINO (acute kidney injury) Current visit: Yes Status: Acute Presenting renal function BUNs 56, creatinine 2.10. Likely multifactorial with hypotension secondary to blood loss anemia as well as elevated BUNs in the setting of GI bleed. Continue IV fluid rehydration. Daily renal function panel. Avoid nephrotoxic agents. (3) Elevated INR Current visit: Yes Status: Acute INR 5.5. Transaminitis. Correct with FFP and vitamin K. Hold anticoagulants Daily coag studies. (4) Transaminitis Current visit: Yes Status: Acute AST, ALT >500 INR 5.5 Questionable shock liver secondary to hypovolemia versus hemolysis or amiodarone side effect. Daily LFTs. CT with stranding adjacent to the gallbladder. Right upper quadrant ultrasound ordered. (5) Atrial fibrillation Current visit: No Status: Acute Hold Xarelto in setting of GI bleed Hold beta delilah as he is currently bradycardic. Qualifiers: Atrial fibrillation type: unspecified Qualified Code(s): I48.91 - Unspecified atrial fibrillation (6) CAD (coronary artery disease) Current visit: Yes Status: Acute S/p Coronary artery bypass grafting 2 06/11/17 Hold ASA, Xarelto in setting of GI bleed Qualifiers: Coronary Disease-Associated Artery/Lesion type: [place] artery [place] vs. 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 Followed by radiation oncology. Qualifiers: Laterality: right Lung location: lower lobe of lung Qualified Code(s): C34.31 - Malignant neoplasm of lower lobe, right bronchus or lung (8) AAA (abdominal aortic aneurysm) Current visit: No Status: Chronic 4.8 cm infrarenal abdominal aortic aneurysm. Qualifiers: Presence of rupture: without rupture Qualified Code(s): I71.4 - Abdominal aortic aneurysm, without rupture Internal Medicine - H&P: HPI Chief complaint: Melena, GI Bleed Admitted From: Emergency Dept Plans for Post Hospital Care: Home History of present illness: Mr. Posadas is a 72 year old male with a past medical history of adenocaricnoma of the right lung, atrial fibrillation on xarelto, hypertension, hyperlipidemia who presented to the emergency department on 11/21/17 with a chief complaint of generalized weakness and melena. Patient reports he started feeling unwell on Wednesday of this week. States that he just felt weak and was short of breath walking around. He was seen that day and had a PET scan performed for evaluation of his ongoing lung cancer. He was recently had radiation in August. No chemotherapy. Currently being followed by radiation oncology. 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 During all of this time he has had melanotic stools. He reports this is new for him. He has had some intermittent epigastric pain as well. He does give a history of taking meloxicam daily while also being anticoagulated on xarelto. He denies prior history of GI bleed, peptic ulcer disease, gastritis. Denies any other NSAID use or alcohol use. He last had an EGD roughly 4 years ago which was reported as normal. He had a colonoscopy 2 years ago with precancerous polyps. He denies bleeding from any other source including denial of hemoptysis, hematochezia, epistaxis, hematuria. He voices no other complaints. In the emergency department he was noted to have a hemoglobin of 4.6. In addition he has an acute kidney injury with a creatinine of 2.10. The urine of 56 which may be multifactorial secondary to prerenal physiology from volume loss as well as elevated BUNs in the setting of upper GI bleed. He had a CT scan of the abdomen and pelvis which revealed "Interval development of abnormal stranding about the contracted gallbladder concerning for an inflammatory/ infectious process. Gallbladder ultrasound could be utilized for further evaluation. There is a 4.8 cm infrarenal abdominal aortic aneurysm." ALT greater than 500, AST 599 previously normal. Past Med Surg Social Fam HX - Past Medical History Attestation: Yes The following information was validated with the patient. Source: patient Medical history: arthritis, atrial fibrillation, cancer, COPD, hyperlipidemia, hypertension, myocardial infarction Psychiatric history: no psych history - Past Surgical History Surgical History: no surgical history - Social History Smoking Status: Former smoker Smokeless Tobacco Status: No Alcohol use: none Drug use: none - Family History Mother Adopted: No Hx Family Cancer: Yes Father Adopted: No Family Member Ethnicity: Non- Living Status: Hx Family Cardiac Disorders: Yes Hx Family Endocrine Disorder: Yes Hx Family Neuromuscular Disorders: No Hx Family Neurologic Disorders: No Hx Family HEENT Disorders: No Hx Family Autoimmune Disorders: No Internal Medicine - H&P: Meds Amlodipine/Atorvastatin [Amlodipine-Atorvast 5-40 mg] 1 each PO DAILY 06/08/17 [ History] Aspirin [Lo-Dose Aspirin EC] 81 mg PO DAILY 06/08/17 [History] Lisinopril-HCTZ 20-12.5 [Prinzide 20-12.5] 1 each PO DAILY 06/08/17 [History] Meloxicam [Mobic] 15 mg PO DAILY 06/08/17 [History] Metoprolol XL (24 HR) Succ [Toprol Xl] 25 mg PO BID 06/08/17 [History] Rivaroxaban [Xarelto] 20 mg PO DAILY 06/08/17 [History] Atorvastatin [Lipitor] 80 mg PO HS #30 tablet 06/17/17 [Rx] HYDROcodone/Acet 5/325 mg [[place] 5-325 mg] 1 tab PO Q4HR PRN #42 tablet [Rx] traZODone [TraZODone] 50 mg PO HS 07/13/17 [History] 3 Allergy/AdvReac Type Severity Reaction Status Date / Time No Known Allergies Allergy Verified 10/28/17 14:00 All Systems PM: A 10-system review of systems was performed and is negative for pertinent findings except as documented above in the HPI. - Constitutional Constitutional: as per HPI - EENT Eyes: as per HPI Ears: as per HPI Nose, mouth and throat: as per HPI, no bleeding gums - Breasts Breasts: as per HPI - Cardiovascular Cardiovascular ROS IM: as per HPI - Respiratory Respiratory: as per HPI, dyspnea on exertion, no hemoptysis - Gastrointestinal Gastrointestinal: as per HPI, abdominal pain, melena, no diarrhea, no nausea, no vomiting - Genitourinary Genitourinary ROS male: as per HPI, no hematuria - Musculoskeletal Musculoskeletal ROS IM: as per HPI - Integumentary Integumentary IM: as per HPI - Neurological Neurological ROS: as per HPI - Psychiatric Psychiatric: as per HPI - Endocrine Endocrine IM: as per HPI, fatigue - Hematologic/Lymphatic Hematologic/Lymphatic: as per HPI, no easy bleeding - Allergic/Immunologic Allergic/Immunologic: as per HPI - Constitutional Vitals: Temp Pulse Resp BP Pulse Ox 98.1 F 51 16 85/51 100 11/21/17 17:56 11/21/17 19:46 11/21/17 19:46 11/21/17 19:46 11/21/17 19:46 General appearance: Present: pleasant, no acute distress, answers questions appropriately - Head Head exam: Present: atraumatic, normal inspection, normocephalic - Eye Eye exam: Present: normal appearance, sclera anicteric - Neck Neck exam general surgery: Present: full ROM - Respiratory Respiratory exam: Present: CTAB - Cardiovascular Cardiovascular exam: Present: RRR, +S1, +S2 - GI/Abdominal GI/Abdominal exam: Present: tenderness (Mild epigastric tenderness). Absent: distended, guarding, rigid - Extremities Exam Extremities exam: Present: full ROM - Neurological Exam Neurological exam: Present: alert, no focal deficits - Skin Skin exam: Present: dry, intact Internal Med - H&P Results - Labs CBC & Chem 7: 11/21/17 18:54 11/21/17 18:54 Labs: Short CBC 11/21/17 Range/Units 18:54 WBC 11.7 H (4.3-11.1) K/mcL Hgb 4.6 L* (12.9-16.9) g/dL Hct 17.0 L (37.5-50.1) % Plt Count 288 (140-400) K/mcL Neutrophils # 9.0 H (1.6-8.9) K/mcL BMP 11/21/17 18:54 Sodium 137 Potassium 4.3 Chloride 104 Carbon Dioxide 16 L BUN 56 H Creatinine 2.10 H Glucose 113 H Calcium 9.7 Liver Function 11/21/17 Range/Units 18:54 Total Bilirubin 0.9 (0.3-1.0) mg/dL Direct Bilirubin 0.3 H (0.0-0.2) mg/dL AST 599 H (13-39) Units/L ALT > 500 H (7-52) Units/L Alkaline Phosphatase 94 (34-104) Units/L Albumin 4.4 (3.5-5.7) g/dL - Impressions ITS Impressions Abdomen/Pelvis CT 11/21/17 18:16 IMPRESSION: Interval development of abnormal stranding about the contracted gallbladder concerning for an inflammatory/infectious process. Gallbladder ultrasound could be utilized for further evaluation. There is a 4.8 cm infrarenal abdominal aortic aneurysm. The remainder of the exam is unchanged from CT performed 4 days earlier. RECOMMENDATIONS: Managing Abdominal Aortic Aneurysms 4.5-5.4 cm: Every 6 months. Recommend vascular consultation. Reference: J Vasc Surg. 2008;50(4 Suppl):S2-49 D/ / 11/21/2017 19:02:09 Benny Rivera MD / Sherron Butler Interpreting Provider: Benny Rivera MD <Rohan Laytonraegankerisienna - Last Filed: 11/21/17 21:51> Date of Encounter: 11/21/17 Internal Medicine - H&P: HPI History of present illness: Mr. Posadas is a 72 year old male All Systems PM: A 10-system review of systems was performed and is negative for pertinent findings except as documented above in the HPI. - Constitutional Vitals: Temp Pulse Resp BP Pulse Ox 98.1 F 51 16 103/48 100 11/21/17 21:05 11/21/17 21:40 11/21/17 21:40 11/21/17 21:40 11/21/17 21:40 Internal Med - H&P Results - Labs CBC & Chem 7: 11/21/17 18:54 11/21/17 18:54 - Attending Attestation I examined this patient and my medical decision-making was reviewed with the Resident Physician. I agree with the documented findings, disposition and treatment plan as described except to the extent set forth below.
[2017-11-21] MEDS: Pantoprazole 40 MG in 0.9 % Sodium Chloride Mini Bag 100 ML IVC SCH (19:55)
[2017-11-21] MEDS ORDERED: Naloxone 0.4 MG/ML INJ IVP PRN (19:59)
[2017-11-21] MEDS ORDERED: Potassium Phosphate 44 MEQ in 0.9 % Sodium Chloride 250 ML IVPB PRN (20:03)
[2017-11-21 20:09] LABS: Activated Partial Thrombo Time 40.8 Seconds (26.0-36.0)
[2017-11-21 20:11] LABS: INR 5.5; Prothrombin Time 61.8 Seconds (9.4-12.1)
[2017-11-21 21:26] LABS: Troponin I 0.13 ng/mL (< 0.04)
[2017-11-21] MEDS: 0.9 % Sodium Chloride 1,000 ML IVC SCH (21:39)
[2017-11-22] MEDS: Pantoprazole 40 MG in 0.9 % Sodium Chloride Mini Bag 100 ML IVC SCH ×5 (00:19→19:39)
[2017-11-22 00:27] LABS: Hematocrit 22.5 % (37.5-50.1)
[2017-11-22 00:34] LABS: Hemoglobin 6.8 g/dL (12.9-16.9)
[2017-11-22] MEDS: 0.9 % Sodium Chloride 1,000 ML IVC SCH ×2 (03:01→15:18)
[2017-11-22 06:13] LABS: Basophils % 0.2 %; Eosinophils # 0.2 K/mcL (0.0-0.6); Eosinophils % 2.1 %; Hematocrit 26.9 % (37.5-50.1); Immature Granulocytes % 0.7 % (0-4); Lymphocytes # 1.2 K/mcL (0.6-4.6); Lymphocytes % 13.1 %; Mean Corpuscular HGB Conc 31.6 g/dL (31.6-35.5); Mean Corpuscular Hemoglobin 24.4 pg (28.0-33.3); Mean Corpuscular Volume 77.3 fL (83.0-100.0); Mean Platelet Volume 10.8 fL (9.4-12.4); Monocytes # 0.9 K/mcL (0.0-1.3); Monocytes % 9.8 %; Neutrophils # 6.9 K/mcL (1.6-8.9); Nucleated Red Blood Cells 1.5 /100 WBC (0); Platelet Count 220 K/mcL (140-400); Red Blood Count 3.48 M/mcL (4.19-5.50); Red Cell Distribution Width 17.8 % (11.5-14.5); Segmented Neutrophils % 74.1 %
[2017-11-22 06:14] LABS: Hemoglobin 8.5 g/dL (12.9-16.9)
[2017-11-22 06:14] LABS: VBG Ionized Calcium 1.14 mmol/L (1.15-1.35); VBG PH 7.34 pH Units (7.32-7.42)
[2017-11-22 06:18] LABS: INR 3.5; Prothrombin Time 38.8 Seconds (9.4-12.1)
[2017-11-22 06:36] LABS: Alanine Aminotransferase > 500 Units/L (7-52)
[2017-11-22 06:52] LABS: Albumin 4.2 g/dL (3.5-5.7); Albumin/Globulin Ratio 1.8 (1.1-2.2); Alkaline Phosphatase 104 Units/L (34-104); Aspartate Amino Transferase 720 Units/L (13-39); BUN/Creatinine Ratio 29 (6-26); Bilirubin,Direct 0.6 mg/dL (0.0-0.2); Bilirubin,Indirect 1.2 mg/dL (0.0-1.2); Bilirubin,Total 1.8 mg/dL (0.3-1.0); Blood Urea Nitrogen 55 mg/dL (8-23); Calcium 9.5 mg/dL (8.6-10.3); Carbon Dioxide 25 mEq/L (23-29); Chloride 104 mEq/L (98-107); Globulin 2.3 g/dL (2.4-3.5); Glucose 93 mg/dL (70-105); Magnesium 2.4 mg/dL (1.6-2.6); Osmolality,Calculated 305 (280-300); Phosphorous 4.2 mg/dL (2.7-4.5); Potassium 3.8 mEq/L (3.5-5.1); Sodium 140 mEq/L (136-145); Total Protein 6.5 g/dL (6.4-8.9); eGFR For African Americans 43 (> 60); eGFR For Non-African Americans 35 (> 60)
--- NOTE | 2017-11-22 10:40 | Internal Med Progress Note ---
Date of Encounter: 11/22/17 Time of Encounter: 10:37 - Assessment and plan (1) Anemia Current Visit: Yes Status: Acute Assessment and plan: From acute GI bleeding, received 3 untis of PRBC, Hb improved to 8.5 follow up H/h Q6 Qualifiers: Anemia type: other cause Other causes of anemia: acute posthemorrhagic Qualified Code(s): D62 - Acute posthemorrhagic anemia (2) GI bleed Current Visit: Yes Status: Acute Assessment and plan: Patient has black stool for 8 days, with diffuse abdominal pain, hemoglobin dropped to 4.6, received a blood transfusion, Hb improved. Currently continue ppi drip, Discussed with Dr Conley, check H/H q6 INR revered by vitamin K Qualifiers: GI bleed type/associated pathology: melena Qualified Code(s): K92.1 - Melena (3) VICTORINO (acute kidney injury) Current Visit: Yes Status: Acute Assessment and plan: continue IVF (4) CAD (coronary artery disease) Current Visit: Yes Status: Acute Assessment and plan: Stated post CABG in June 2017, denies chest pain shortness of breath Qualifiers: Coronary Disease-Associated Artery/Lesion type: [place] artery [place] vs. transplanted heart: [place] heart Associated angina: without angina Qualified Code(s): I25.10 - Atherosclerotic heart disease of [place] coronary artery without angina pectoris (5) Elevated INR Current Visit: Yes Status: Acute Assessment and plan: INR improved and received vitamin K and FFP (6) Transaminitis Current Visit: Yes Status: Acute Assessment and plan: LFT is elevated and ultrasound and CT showed possible acute cholecystitis,will HIDA scan GI is on board (7) Atrial fibrillation Current Visit: Yes Status: Chronic Assessment and plan: hold xarelto due to GI bleeding Qualifiers: Atrial fibrillation type: unspecified Qualified Code(s): I48.91 - Unspecified atrial fibrillation (8) Lung cancer Current Visit: No Status: Chronic Assessment and plan: AJCC clinical stage [id number] adenocaricnoma of the right lung. Followed by radiation oncology. Qualifiers: Laterality: right Lung location: lower lobe of lung Qualified Code(s): C34.31 - Malignant neoplasm of lower lobe, right bronchus or lung (9) AAA (abdominal aortic aneurysm) Current Visit: Yes Status: Chronic Assessment and plan: 4.8 cm infrarenal abdominal aortic aneurysm. Qualifiers: Presence of rupture: without rupture Qualified Code(s): I71.4 - Abdominal aortic aneurysm, without rupture - Time Spent With Patient Greater than 35 minutes - Subjective Interval history: Mr. Posadas is a 72 year old male with a past medical history of adenocaricnoma of the right lung, atrial fibrillation on xarelto, hypertension, hyperlipidemia who presented to the emergency department on 11/21/17 with a chief complaint of generalized weakness and melena. He was find hemoglobin 4.6, he received 3 units of PRBC, hemoglobin improved. Patient is still complaining diffuse abdominal pain, pain also radiating to the back, 7 out of 10, constant for 7 days. He had to CABG today and 05/11/2017, taking his xarelto for age fibrillation. His shortness of breath improved, denies chest pain, nausea vomiting Continue ppi drip, discussed with Dr Conley - Constitutional Vitals: Temp Pulse Resp BP Pulse Ox 99.2 F 61 22 123/67 95 11/22/17 08:00 11/22/17 09:00 11/22/17 09:00 11/22/17 09:00 11/22/17 09:00 General appearance: Present: A&O X 3, pleasant, no acute distress, answers questions appropriately Exam: CONSTITUTIONAL: patient appears as an age appropriate male in no acute distress. EYES Clear sclerae, bilateral pupils are equal, reactive to light. EMOI. RESPIRATORY: No accessory muscle use, bilateral clear to auscultation, no wheezing, no crackles/rales. CARDIOVASCULAR: Regular heart rate, normal S1 and S2, no murmurs GASTROINTESTINAL: bowel sounds present, soft, right sided tenderness. MUSCULOSKELETAL: Joints in normal range of motion, no clubbing, no edema, no cyanosis. Bilateral peripheral pulses 2+. NEUROLOGIC: CN II to XII are grossly intact, no focal neurological deficit. Internal Medicine: Result - Labs CBC & Chem 7: 11/22/17 06:00 11/22/17 06:00 Labs: Short CBC 11/22/17 11/22/17 Range/Units 00:15 06:00 WBC 9.4 (4.3-11.1) K/mcL Hgb 6.8 L D 8.5 L D (12.9-16.9) g/dL Hct 22.5 L 26.9 L (37.5-50.1) % Plt Count 220 (140-400) K/mcL Neutrophils # 6.9 (1.6-8.9) K/mcL BMP 11/22/17 06:00 Sodium 140 Potassium 3.8 Chloride 104 Carbon Dioxide 25 BUN 55 H Creatinine 1.89 H Glucose 93 Calcium 9.5 Cardiac Enzymes 11/22/17 11/22/17 Range/Units 00:15 06:00 Troponin I 0.23 H* 0.37 H* (< 0.04) ng/mL Liver Function 11/22/17 Range/Units 06:00 Total Bilirubin 1.8 H (0.3-1.0) mg/dL Direct Bilirubin 0.6 H (0.0-0.2) mg/dL AST 720 H (13-39) Units/L ALT > 500 H (7-52) Units/L Alkaline Phosphatase 104 (34-104) Units/L Albumin 4.2 (3.5-5.7) g/dL - ABG Interpretation ABG results: PT/INR, D-dimer PT 38.8 Seconds (9.4-12.1) H 11/22/17 06:00 - Impressions Impressions Gallbladder Ultrasound 11/22/17 08:00 IMPRESSION: Abnormal appearance to the gallbladder which is nonspecific, with equivocal findings for acute cholecystitis. There is diffuse hypoechoic wall thickening along with some mild pericholecystic fluid, as well as some sludge and likely some small stones within the gallbladder; however, there was a negative sonographic Caro's sign and the gallbladder is not distended. Nuclear medicine hepatobiliary scan with gallbladder ejection fraction may be of use for further evaluation. Redemonstration of some simple benign renal cysts to the liver without necessity for continued follow-up. However, there is also a hypoechoic focus noted to the left lobe of the liver measuring maximally 4.9 cm. This was low-attenuation on prior CT exams and was not FDG avid on recent PET-CT exam, and is felt to be compatible with benign etiology, possibly a complex cyst. Attention can be paid on follow-up to this focus. D/ / 11/22/2017 10:13:37 Ayden Alonso MD / [email or web address] Interpreting Provider: Ayden Alonso MD - VTE Documentation of Mechanical Device: Intermittent pneumatic compression device Consult Discharge Plan - Plan Referrals: Galen Thurman MD [Primary Care Provider] -
[2017-11-22 10:48] LABS: Hematocrit 26.3 % (37.5-50.1); Hemoglobin 8.2 g/dL (12.9-16.9)
[2017-11-22 12:35] LABS: Prothrombin Time 33.3 Seconds (9.4-12.1)
--- NOTE | 2017-11-22 13:18 | Gastroenterology Consult Note ---
<Senait Bland - Last Filed: 11/22/17 13:09> Date of Encounter: 11/22/17 Time of Encounter: 10:35 - Assessment and plan (1) GI bleed Current Visit: Yes Status: Acute Assessment and plan: Pt has melena likely due to NSAID use along with xarelto. He needs EGD, but his INR is 3.5. He has received Vit K, and 4 units FFP. Pt has been transfused, monitor H&H. Will proceed with EGD tomorrow if INR is less than 5. Qualifiers: GI bleed type/associated pathology: melena Qualified Code(s): K92.1 - Melena (2) Transaminitis Current Visit: Yes Status: Acute Assessment and plan: US gallbladder shows gallbladder sludge no stones or obstruction. LFTs may be elevated due to shock liver from hypotension and hypovolemia on admission. Monitor LFTs. - Time Spent With Patient Total time spent is greater than 50% in coordination of care (as documented) at patient's floor/unit and/or counseling patient: GI History of Present Illness - Data of Consult Patient: new to practice Consult date: 11/22/17 Requesting Physician: Anton Salguero MD - Consult Narrative Reason for consult: anemia History of present illness: Mr. Posadas is a 72 year old male with a past medical history of adenocaricnoma of the right lung, atrial fibrillation on xarelto, hypertension, hyperlipidemia who presented to the emergency department on 11/21/17 with a chief complaint of generalized weakness and melena. He was complaining of weakness, fatigue and dyspnea on exertion worse since Wednesday of last week. He reports aiyana tarry stools for the past 7-8 days. Pain in his right side and mid epigastric area. he also reports some nausea denies vomiting. He reports occasional GE reflux symptoms. He denies bleeding from any other source including denial of hemoptysis, hematochezia, epistaxis, hematuria. In the emergency department he was noted to have a hemoglobin of 4.6. In addition he has an acute kidney injury with a creatinine of 2.10. The urine of 56 which may be multifactorial secondary to prerenal physiology from volume loss as well as elevated BUNs in the setting of upper GI bleed. He had a CT scan of the abdomen and pelvis which revealed "Interval development of abnormal stranding about the contracted gallbladder concerning for an inflammatory/infectious process. Gallbladder ultrasound could be utilized for further evaluation. There is a 4.8 cm infrarenal abdominal aortic aneurysm." ALT greater than 500, AST 599 previously normal. colon 10/15 divertiulosis, six small polyps in transverse colon (tubular adenomas) NSAIDS: meloxiam, asa Anticoagulation: xarelto Past Med Surg Social Fam HX - Past Medical History Medical history: arthritis, atrial fibrillation, cancer, COPD, hyperlipidemia, hypertension, myocardial infarction Psychiatric history: no psych history - Past Surgical History Surgical History: no surgical history - Social History Smoking Status: Former smoker Smokeless Tobacco Status: No Alcohol use: none Drug use: none - Family History Mother Adopted: No Hx Family Cancer: Yes Father Adopted: No Family Member Ethnicity: Non- Living Status: Hx Family Cardiac Disorders: Yes Hx Family Endocrine Disorder: Yes Hx Family Neuromuscular Disorders: No Hx Family Neurologic Disorders: No Hx Family HEENT Disorders: No Hx Family Autoimmune Disorders: No Review of Systems: GI: as per [place] [place] [employer]: denies fever or chills EYES: denies yellow discoloration ENT: denies pain with swallowing or difficulty swallowing CARDIO: denies chest pain, palpitations RESP: Shortness of breath with exertion : denies change in color of urine NEURO: weakness HEME: Denies any bruising MS: denies joint pain, joint swelling or back pain. DERM: denies rash or itching PSYCH: Denies history of anxiety or depression - Constitutional Vitals: Temp Pulse Resp BP Pulse Ox 98.2 F 53 15 128/65 95 11/22/17 12:00 11/22/17 13:00 11/22/17 13:00 11/22/17 13:00 11/22/17 13:00 Exam: CONSTITUTIONAL:~alert, no acute distress.~HEAD:~normocephalic.~EYES:~no jaundice.~NECK:~no obvious swelling.~HEART:~regular rate and rhythm, no murmurs. ~LUNGS:~bilateral good air entry.~ABDOMEN:~non distended, soft, non tander, no masses pulpable, no organomegaly.~RECTAL EXAM:~Deferred.~EXTREMITIES:~no clubbing, cyanosis or edema.~SKIN:~no stigmata of chronic liver disease.~ NEUROLOGIC:~no obvious focal defect.~~~~ Results - Labs CBC & Chem 7: 11/22/17 10:30 11/22/17 06:00 Labs: Last Result Calcium 9.5 mg/dL (8.6-10.3) 11/22/17 06:00 Troponin I 0.45 ng/mL (< 0.04) H* 11/22/17 11:50 Entire Visit Hgb 8.2 g/dL (12.9-16.9) L 11/22/17 10:30 Hct 26.3 % (37.5-50.1) L 11/22/17 10:30 PT 33.3 Seconds (9.4-12.1) H 11/22/17 11:50 Total Bilirubin 1.8 mg/dL (0.3-1.0) H 11/22/17 06:00 AST 720 Units/L (13-39) H 11/22/17 06:00 ALT > 500 Units/L (7-52) H 11/22/17 06:00 Lipase 49 Units/L (11-82) 11/21/17 18:54 - ABG ABG results: PT/INR, D-dimer PT 33.3 Seconds (9.4-12.1) H 11/22/17 11:50 - Impressions Impressions Gallbladder Ultrasound 11/22/17 08:00 IMPRESSION: Abnormal appearance to the gallbladder which is nonspecific, with equivocal findings for acute cholecystitis. There is diffuse hypoechoic wall thickening along with some mild pericholecystic fluid, as well as some sludge and likely some small stones within the gallbladder; however, there was a negative sonographic Caro's sign and the gallbladder is not distended. Nuclear medicine hepatobiliary scan with gallbladder ejection fraction may be of use for further evaluation. Redemonstration of some simple benign renal cysts to the liver without necessity for continued follow-up. However, there is also a hypoechoic focus noted to the left lobe of the liver measuring maximally 4.9 cm. This was low-attenuation on prior CT exams and was not FDG avid on recent PET-CT exam, and is felt to be compatible with benign etiology, possibly a complex cyst. Attention can be paid on follow-up to this focus to assure stability versus further evaluation with MRI with and without contrast. D/ / 11/22/2017 10:13:37 Ayden Alonso MD / lindsay Interpreting Provider: Ayden Alonso MD Consult Discharge Plan - Plan Referrals: Galen Thurman MD [Primary Care Provider] - <Lisette Conley - Last Filed: 11/22/17 14:55> Date of Encounter: 11/22/17 Time of Encounter: 13:45 - Time Spent With Patient Total time spent is greater than 50% in coordination of care (as documented) at patient's floor/unit and/or counseling patient: GI History of Present Illness - Data of Consult Requesting Physician: Anton Salguero MD - Consult Narrative History of present illness: Mr. Posadas is a 72 year old male - Constitutional Vitals: Temp Pulse Resp BP Pulse Ox 98.2 F 53 15 128/65 95 11/22/17 12:00 11/22/17 13:00 11/22/17 13:00 11/22/17 13:00 11/22/17 13:00 Results - Labs CBC & Chem 7: 11/22/17 10:30 11/22/17 06:00 Labs: Last Result Calcium 9.5 mg/dL (8.6-10.3) 11/22/17 06:00 Troponin I 0.45 ng/mL (< 0.04) H* 11/22/17 11:50 Entire Visit Hgb 8.2 g/dL (12.9-16.9) L 11/22/17 10:30 Hct 26.3 % (37.5-50.1) L 11/22/17 10:30 PT 33.3 Seconds (9.4-12.1) H 11/22/17 11:50 Total Bilirubin 1.8 mg/dL (0.3-1.0) H 11/22/17 06:00 AST 720 Units/L (13-39) H 11/22/17 06:00 ALT > 500 Units/L (7-52) H 11/22/17 06:00 Lipase 49 Units/L (11-82) 11/21/17 18:54 - ABG ABG results: PT/INR, D-dimer PT 33.3 Seconds (9.4-12.1) H 11/22/17 11:50 - Impressions Impressions Gallbladder Ultrasound 11/22/17 08:00 IMPRESSION: Abnormal appearance to the gallbladder which is nonspecific, with equivocal findings for acute cholecystitis. There is diffuse hypoechoic wall thickening along with some mild pericholecystic fluid, as well as some sludge and likely some small stones within the gallbladder; however, there was a negative sonographic Caro's sign and the gallbladder is not distended. Nuclear medicine hepatobiliary scan with gallbladder ejection fraction may be of use for further evaluation. Redemonstration of some simple benign renal cysts to the liver without necessity for continued follow-up. However, there is also a hypoechoic focus noted to the left lobe of the liver measuring maximally 4.9 cm. This was low-attenuation on prior CT exams and was not FDG avid on recent PET-CT exam, and is felt to be compatible with benign etiology, possibly a complex cyst. Attention can be paid on follow-up to this focus to assure stability versus further evaluation with MRI with and without contrast. D/ / 11/22/2017 10:13:37 Ayden Alonso MD / lindsay Interpreting Provider: Ayden Alonso MD Liver Scan Nuclear Medicine 11/22/17 10:57 IMPRESSION: Negative HIDA scan with normal ejection fraction D/ / Sheng Caicedo MD / Sheng Caicedo MD Interpreting Provider: Sheng Caicedo MD - Attending Attestation I have personally performed a face to face evaluation on this patient. I have reviewed and agree with the care plan. History and Exam by me shows: Since seen in the ICU. Denies any abdominal pain. on palpation has mild tenderness in the right upper quadrant/epigastric area. Impression: anemia/melena with coagulopathy inthis patient who was on Xeralto also and also meloxicam. Recommendation: EGD once INR is around 1.5
--- NOTE | 2017-11-22 14:12 | Cardiology Consult Note ---
<Vinayak Hernandez - Last Filed: 11/22/17 15:02> Date of Encounter: 11/22/17 Time of Encounter: 01:35 Assessment and Plan (1) Elevated troponin Current Visit: Yes Status: Acute Trop elevated to 0.45 - pt denies chest pain - suspect secondary to severe anemia and GI bleed Agree with holding xarelto and ASA currently - restart as able pending GI work- up No further cardiac work-up at this time (2) CAD (coronary artery disease) Current Visit: Yes Status: Acute Severe multivessel disease s/p CABG in Jun 2017 Continue medical therapy as able Qualifiers: Coronary Disease-Associated Artery/Lesion type: [place] artery [place] vs. transplanted heart: [place] heart Associated angina: without angina Qualified Code(s): I25.10 - Atherosclerotic heart disease of [place] coronary artery without angina pectoris (3) Atrial fibrillation Current Visit: Yes Status: Chronic Currently NSR - s/p MAZE procedure Agree with holding Xarelto - likely restart as able Agree with holding BB due to bradycardia - restart as able Qualifiers: Atrial fibrillation type: unspecified Qualified Code(s): I48.91 - Unspecified atrial fibrillation (4) HTN (hypertension) Current Visit: Yes Status: Acute Continue home meds as able Qualifiers: Hypertension type: essential hypertension Qualified Code(s): I10 - Essential (primary) hypertension (5) HLD (hyperlipidemia) Current Visit: Yes Status: Acute Continue statin Qualifiers: Hyperlipidemia type: unspecified Qualified Code(s): E78.5 - Hyperlipidemia , unspecified (6) GI bleed Current Visit: Yes Status: Acute Management per primary and GI - possible EGD tomorrow Qualifiers: GI bleed type/associated pathology: melena Qualified Code(s): K92.1 - Melena (7) AAA (abdominal aortic aneurysm) Current Visit: Yes Status: Chronic CT shows 4.8cm infrarenal AAA Qualifiers: Presence of rupture: without rupture Qualified Code(s): I71.4 - Abdominal aortic aneurysm, without rupture (8) Lung cancer Current Visit: Yes Status: Chronic Adenocarcinoma right lung. Follows with oncology - s/p radiation. No chemotherapy Qualifiers: Laterality: right Lung location: lower lobe of lung Qualified Code(s): C34.31 - Malignant neoplasm of lower lobe, right bronchus or lung Discussion w patient/family: The assessment and plan as outlined above was discussed with the patient and/or family members who expressed understanding and agreement. All questions were answered. Thank you for involving us in the care of your patient. Please call with any questions. History of Present Illness Consult date: 11/22/17 Requesting physician: Anton Salguero Consult reason: Elevated troponin Chief complaint: Melena, Weakness History of present illness: Mr. Posadas is a 72 year old male with PMH of CAD s/p CABG, A. fib on Xarelto, HTN , HLD, AAA of 4.8cm, and adenocarcinoma of right lung, admitted to the hospital with GI bleed. Presented with one week history of melena, generalized weakness, dyspnea on exertion, diaphoresis, light-headedness, nausea, and intermittent epigastric/lower abdominal pain. He denies chest pain/pressure, jaw pain, dyspnea at rest, orthopnea, or LE edema. He reports significant improvement after transfusion. He reports that prior to this happening he was able to work in the yard collecting limbs and sticks and push a wheel bois forte without having any symptoms. He reports that he has been taking xarelto and meloxicam together. He states that he never had chest pain even when he had his [facility] with severe disease. He also had a MAZE procedure for his A. fib. Prior Cardiac Imaging: - Stress 08/2017: ECG indeterminant, not diagnostic of ischemia, stopped due to dyspnea - C 06/2017: severe multi-vessel disease. 50% left main, 95% ostial LAD, 99% LAD, 40% mid LAD, 30% circ, 90% ostial OM2, 100% ostial RCA - TTE 05/2017: LVEF 45%, moderate concentric LVH, mild-moderate right atrial dilation, mid/basal inferior and inferioseptal hypokinesis Past Med Surg Social Fam HX - Past Medical History Medical history: arthritis, atrial fibrillation, cancer, COPD, hyperlipidemia, hypertension, myocardial infarction Psychiatric history: no psych history - Past Surgical History Surgical History: no surgical history - Social History Smoking Status: Former smoker Smokeless Tobacco Status: No Alcohol use: none Drug use: none - Family History Mother Adopted: No Hx Family Cancer: Yes Father Adopted: No Family Member Ethnicity: Non- Living Status: Hx Family Cardiac Disorders: Yes Hx Family Endocrine Disorder: Yes Hx Family Neuromuscular Disorders: No Hx Family Neurologic Disorders: No Hx Family HEENT Disorders: No Hx Family Autoimmune Disorders: No Medications and Allergies Amlodipine/Atorvastatin [Amlodipine-Atorvast 5-40 mg] 1 each PO DAILY 06/08/17 [ History] Aspirin [Lo-Dose Aspirin EC] 81 mg PO DAILY 06/08/17 [History] Lisinopril-HCTZ 20-12.5 [Prinzide 20-12.5] 1 each PO DAILY 06/08/17 [History] Meloxicam [Mobic] 15 mg PO DAILY 06/08/17 [History] Rivaroxaban [Xarelto] 20 mg PO DAILY 06/08/17 [History] traZODone [TraZODone] 50 mg PO HS 07/13/17 [History] Metoprolol [Lopressor] 25 mg PO BID 11/22/17 [History] rOPINIRole [Requip] 0.25 mg PO HS 11/22/17 [History] 3 Allergy/AdvReac Type Severity Reaction Status Date / Time No Known Allergies Allergy Verified 10/28/17 14:00 All Systems Review: The remainder of the systems were reviewed and are negative Physical Examination Vital Signs, Last 4 Hours Temp Pulse Resp BP Pulse Ox 11/22/17 13:00 53 15 128/65 95 11/22/17 12:00 98.2 F 61 21 133/70 94 11/22/17 11:00 61 31 136/69 95 General: Conversant, No Apparent Distress HEENT: Atraumatic, Normocephaly, Mucus Membranes Moist Neck: No JVD, Normal carotid pulses Cardiac: Normal S1 and S2, No Murmur, Other (Bradycardia, regular) Lungs: Normal Breath Sounds, No Wheeze, Rales, Rhonchi Neuro: Alert and responsive, No focal deficits noted Abdomen: Soft, Other (Diffuse tenderness) Skin: No rashes noted on visualized skin Musculoskeletal: No Chest Wall Tenderness Extremities: No Clubbing, No Cyanosis, No Edema, Normal Pulses Results 11/22/17 10:30 11/22/17 06:00 Lab Results 11/22/17 11/22/17 11/22/17 00:15 00:15 06:00 WBC 9.4 Hgb 6.8 L D 8.5 L D Hct 22.5 L 26.9 L Plt Count 220 INR Sodium Potassium Chloride Carbon Dioxide BUN Creatinine Glucose Calcium Magnesium Total Bilirubin AST ALT Alkaline Phosphatase Troponin I 0.23 H* 11/22/17 11/22/17 11/22/17 06:00 06:00 06:00 WBC Hgb Hct Plt Count INR 3.5 Sodium 140 Potassium 3.8 Chloride 104 Carbon Dioxide 25 BUN 55 H Creatinine 1.89 H Glucose 93 Calcium 9.5 Magnesium 2.4 Total Bilirubin 1.8 H AST 720 H ALT > 500 H Alkaline Phosphatase 104 Troponin I 0.37 H* 11/22/17 11/22/17 11/22/17 10:30 11:50 11:50 WBC Hgb 8.2 L Hct 26.3 L Plt Count INR 3.0 Sodium Potassium Chloride Carbon Dioxide BUN Creatinine Glucose Calcium Magnesium Total Bilirubin AST ALT Alkaline Phosphatase Troponin I 0.45 H* Consult Discharge Plan - Plan Referrals: Galen Thurman MD [Primary Care Provider] - <Wesly Fonseca - Last Filed: 11/22/17 18:34> Date of Encounter: 11/22/17 - Attending Attestation I examined this patient and my medical decision-making was reviewed with the Resident Physician. I agree with the documented findings, disposition and treatment plan as described except to the extent set forth below. CC: Rectal bleeding Pt admitted through ER with compliant of approximately one week of dark tarry stools, progressive weakness, dizziness and abdominal pain. Pt was very active , working in yard up until this bleeding event started. Weakness and dizziness have improved with transfusion of PRBCs. He has recovered uneventfully from CABG x 3 06/18. We are asked to evaluate pt for elevated cardiac enzemes, troponin 0,23, recommendations for systemic anticoagulation with GI bleed PMHx, Reviewed PE: pt seen and examined, chart reviewed,agree with documentation IMP/Plan 1. Acute blood loss anemia secondary to GI bleed, source yet to be determined, endoscopy planned for AM, blood loss replaced with PRBCs, 2. Elevated troponin: very minor 0.23 elevation, suspect demand ischemia in light of severe blood loss anemia, transient hypotension, poor renal excretion with acute kidney injury, Continue to trend, monitor EKG, pt is asymtpmatic at present 3. CAD: severe three vessel CAD post CABG 06/2017 4. A fib: post MAZE with CABG, in NSR, would not restart systemic anticoagulation, resume ASA and PLavix 75 mg q d when hemodynamically stable. 5. Acute kidney injury: improving, continue fluid support Assessment and Plan Discussion w patient/family: The assessment and plan as outlined above was discussed with the patient and/or family members who expressed understanding and agreement. All questions were answered. Thank you for involving us in the care of your patient. Please call with any questions. History of Present Illness History of present illness: Mr. Posadas is a 72 year old male All Systems Review: The remainder of the systems were reviewed and are negative Physical Examination Vital Signs, Last 4 Hours Temp Pulse Resp BP Pulse Ox 11/22/17 18:00 51 20 127/66 98 11/22/17 17:00 57 22 133/94 98 11/22/17 16:00 97.6 F 50 17 131/70 97 11/22/17 15:00 64 18 122/70 98 Results 11/22/17 10:30 11/22/17 06:00 Lab Results 11/22/17 11/22/17 11/22/17 00:15 00:15 06:00 WBC 9.4 Hgb 6.8 L D 8.5 L D Hct 22.5 L 26.9 L Plt Count 220 INR Sodium Potassium Chloride Carbon Dioxide BUN Creatinine Glucose Calcium Magnesium Total Bilirubin AST ALT Alkaline Phosphatase Troponin I 0.23 H* 11/22/17 11/22/17 11/22/17 06:00 06:00 06:00 WBC Hgb Hct Plt Count INR 3.5 Sodium 140 Potassium 3.8 Chloride 104 Carbon Dioxide 25 BUN 55 H Creatinine 1.89 H Glucose 93 Calcium 9.5 Magnesium 2.4 Total Bilirubin 1.8 H AST 720 H ALT > 500 H Alkaline Phosphatase 104 Troponin I 0.37 H* 11/22/17 11/22/17 11/22/17 10:30 11:50 11:50 WBC Hgb 8.2 L Hct 26.3 L Plt Count INR 3.0 Sodium Potassium Chloride Carbon Dioxide BUN Creatinine Glucose Calcium Magnesium Total Bilirubin AST ALT Alkaline Phosphatase Troponin I 0.45 H*
[2017-11-22] MEDS ORDERED: *HR* Phytonadione 5 MG TABLET PO ONE (15:49)
[2017-11-23] MEDS: Pantoprazole 40 MG in 0.9 % Sodium Chloride Mini Bag 100 ML IVC SCH ×4 (00:51→18:47)
[2017-11-23 04:49] LABS: Basophils % 0.3 %; Eosinophils # 0.4 K/mcL (0.0-0.6); Eosinophils % 4.7 %; Hematocrit 27.1 % (37.5-50.1); Hemoglobin 8.4 g/dL (12.9-16.9); Immature Granulocytes % 0.9 % (0-4); Lymphocytes # 1.6 K/mcL (0.6-4.6); Lymphocytes % 18.5 %; Mean Corpuscular Hemoglobin 24.2 pg (28.0-33.3); Mean Corpuscular Volume 78.1 fL (83.0-100.0); Mean Platelet Volume 11.8 fL (9.4-12.4); Monocytes # 1.2 K/mcL (0.0-1.3); Monocytes % 13.5 %; Neutrophils # 5.4 K/mcL (1.6-8.9); Platelet Count 242 K/mcL (140-400); Red Blood Count 3.47 M/mcL (4.19-5.50); Segmented Neutrophils % 62.1 %
[2017-11-23 04:59] LABS: INR 2.4; Prothrombin Time 26.5 Seconds (9.4-12.1)
[2017-11-23 05:03] LABS: BUN/Creatinine Ratio 27 (6-26); Blood Urea Nitrogen 37 mg/dL (8-23); Calcium 9.4 mg/dL (8.6-10.3); Carbon Dioxide 27 mEq/L (23-29); Chloride 107 mEq/L (98-107); Glucose 90 mg/dL (70-105); Magnesium 2.2 mg/dL (1.6-2.6); Osmolality,Calculated 298 (280-300); Phosphorous 2.4 mg/dL (2.7-4.5); Sodium 140 mEq/L (136-145); eGFR For African Americans > 60 (> 60); eGFR For Non-African Americans 51 (> 60)
[2017-11-23] MEDS ORDERED: 0.9 % Sodium Chloride 250 ML ONE (05:10)
[2017-11-23 05:11] LABS: Alanine Aminotransferase > 500 Units/L (7-52); Albumin 3.7 g/dL (3.5-5.7); Albumin/Globulin Ratio 1.8 (1.1-2.2); Alkaline Phosphatase 98 Units/L (34-104); Aspartate Amino Transferase 375 Units/L (13-39); Bilirubin,Direct 0.7 mg/dL (0.0-0.2); Bilirubin,Indirect 1.5 mg/dL (0.0-1.2); Bilirubin,Total 2.2 mg/dL (0.3-1.0); Globulin 2.1 g/dL (2.4-3.5); Total Protein 5.8 g/dL (6.4-8.9)
[2017-11-23 07:34] LABS: VBG Ionized Calcium 1.14 mmol/L (1.15-1.35)
--- NOTE | 2017-11-23 10:11 | Cardiology Progress Note ---
<Vinayak Hernandez - Last Filed: 11/23/17 13:06> Date of Encounter: 11/23/17 Time of Encounter: 09:35 Assessment and Plan (1) Elevated troponin Current Visit: Yes Status: Acute Trop elevated to 0.45 - pt denies chest pain - suspect secondary to severe anemia, GI bleed, and VICTORINO Agree with holding xarelto and ASA currently - restart as able pending GI work- up No further cardiac work-up at this time Cardiology will sign-off at this time - re-consult as necessary (2) CAD (coronary artery disease) Current Visit: Yes Status: Acute Severe multivessel disease s/p CABG in Jun 2017 Continue medical therapy as able Qualifiers: Coronary Disease-Associated Artery/Lesion type: [place] artery [place] vs. transplanted heart: [place] heart Associated angina: without angina Qualified Code(s): I25.10 - Atherosclerotic heart disease of [place] coronary artery without angina pectoris (3) Atrial fibrillation Current Visit: Yes Status: Chronic Currently NSR - s/p MAZE procedure Agree with holding Xarelto - likely restart as able Agree with holding BB due to bradycardia - restart as able Qualifiers: Atrial fibrillation type: unspecified Qualified Code(s): I48.91 - Unspecified atrial fibrillation (4) HTN (hypertension) Current Visit: Yes Status: Acute Continue home meds as able Qualifiers: Hypertension type: essential hypertension Qualified Code(s): I10 - Essential (primary) hypertension (5) HLD (hyperlipidemia) Current Visit: Yes Status: Acute Continue statin Qualifiers: Hyperlipidemia type: unspecified Qualified Code(s): E78.5 - Hyperlipidemia , unspecified (6) GI bleed Current Visit: Yes Status: Acute Management per primary and GI - possible EGD. Possible further work-up of possible gallbladder pathology Qualifiers: GI bleed type/associated pathology: melena Qualified Code(s): K92.1 - Melena (7) AAA (abdominal aortic aneurysm) Current Visit: Yes Status: Chronic CT shows 4.8cm infrarenal AAA Qualifiers: Presence of rupture: without rupture Qualified Code(s): I71.4 - Abdominal aortic aneurysm, without rupture (8) Lung cancer Current Visit: Yes Status: Chronic Adenocarcinoma right lung. Follows with oncology - s/p radiation. No chemotherapy Qualifiers: Laterality: right Lung location: lower lobe of lung Qualified Code(s): C34.31 - Malignant neoplasm of lower lobe, right bronchus or lung Discussion w patient/family: The assessment and plan as outlined above was discussed with the patient and/or family members who expressed understanding and agreement. All questions were answered. Thank you for involving us in the care of your patient. Please call with any questions. Subjective Principal diagnosis: GI bleed Interval history: Pt seen and examined. Reports diffuse abdominal pain. He is unsure of current plan for GI bleed versus possible gallbladder pathology. He denies other symptoms. Continues to deny chest pain, dyspnea, diaphoresis, jaw pain, arm pain , or N/V. Objective Vital Signs, Last 4 Hours Temp Pulse Resp BP Pulse Ox 11/23/17 10:00 60 20 126/71 94 11/23/17 09:42 98.2 F 68 20 145/70 95 11/23/17 09:27 97.7 F 63 18 139/72 96 11/23/17 09:00 63 18 139/72 96 11/23/17 08:50 97.7 F 63 16 134/73 97 11/23/17 08:00 63 16 137/71 94 11/23/17 07:56 98.3 F 11/23/17 07:00 62 18 137/71 95 11/23/17 06:53 98.1 F 60 20 130/75 96 11/23/17 06:38 98.0 F 61 20 135/66 94 General: Conversant, No Apparent Distress HEENT: Atraumatic, Normocephaly, Mucus Membranes Moist Neck: No JVD, Normal carotid pulses Cardiac: Reg Rate and Rhythm, Normal S1 and S2, No Murmur Lungs: Normal Breath Sounds, No Wheeze, Rales, Rhonchi Neuro: Alert and responsive, No focal deficits noted Abdomen: Soft, Other (Diffuse tenderness) Skin: No rashes noted on visualized skin Musculoskeletal: No Chest Wall Tenderness Extremities: No Clubbing, No Cyanosis, No Edema, Normal Pulses Results 11/23/17 03:51 11/23/17 03:51 Lab Results 11/22/17 11/22/17 11/22/17 10:30 11:50 11:50 WBC Hgb 8.2 L Hct 26.3 L Plt Count INR 3.0 Sodium Potassium Chloride Carbon Dioxide BUN Creatinine Glucose Calcium Magnesium Total Bilirubin AST ALT Alkaline Phosphatase Troponin I 0.45 H* 04/24/18 04/24/18 04/24/18 03:51 03:51 03:51 WBC 8.7 Hgb 8.4 L Hct 27.1 L Plt Count 242 INR 2.4 Sodium 140 Potassium 4.0 Chloride 107 Carbon Dioxide 27 BUN 37 H Creatinine 1.38 H Glucose 90 Calcium 9.4 Magnesium 2.2 Total Bilirubin AST ALT Alkaline Phosphatase Troponin I 11/23/17 03:51 WBC Hgb Hct Plt Count INR Sodium Potassium Chloride Carbon Dioxide BUN Creatinine Glucose Calcium Magnesium Total Bilirubin 2.2 H AST 375 H ALT > 500 H Alkaline Phosphatase 98 Troponin I - VTE Documentation of Mechanical Device: Intermittent pneumatic compression device Consult Discharge Plan - Plan Referrals: Galen Thurman MD [Primary Care Provider] - 12/01/17 9:45 am Lisette Conley MD [Partnered Physician] - (SENT WEB REQUEST ON @ [phone]) <Wesly Fonseca - Last Filed: 11/24/17 22:08> Date of Encounter: 11/23/17 Time of Encounter: 17:00 Assessment and Plan Discussion w patient/family: The assessment and plan as outlined above was discussed with the patient and/or family members who expressed understanding and agreement. All questions were answered. Thank you for involving us in the care of your patient. Please call with any questions. Results 11/24/17 04:40 11/24/17 04:40 Lab Results 11/24/17 11/24/17 11/24/17 04:40 04:40 04:40 WBC 9.4 Hgb 8.7 L Hct 28.1 L Plt Count 253 INR 1.5 Sodium 143 Potassium 3.6 Chloride 109 H Carbon Dioxide 26 BUN 25 H Creatinine 1.16 Glucose 89 Calcium 9.9 Magnesium 2.0 Total Bilirubin AST ALT Alkaline Phosphatase 11/24/17 04:40 WBC Hgb Hct Plt Count INR Sodium Potassium Chloride Carbon Dioxide BUN Creatinine Glucose Calcium Magnesium Total Bilirubin 2.6 H AST 191 H ALT > 500 H Alkaline Phosphatase 133 H Attestation: My signature below is to certify that this patient is under my care and that I, had a [id number] encounter with this patient. CC: Rectal bleeding Pt reports dark stools have resolved. He has been up to the side of the bed but not out or bed yet. He denies chest pain, pressure or shortness of breath. He continues to experience right upper and midline abodominal pain, He denies chest pain, pressure or shortness of breath. PMHx: Reviewed PE: agree with documented PE. IMP: 1. CAD: stable class 1 angina, recurrent chest pain, has ruled out for AMI 2. ATrial fib: controlled on current meds "thats what I got." 3 Systemic anticoag with xaralto, on hold pending eval for completion GI evaluation
--- NOTE | 2017-11-23 10:26 | Gastroenterology Progress Note ---
<Senait Bland - Last Filed: 11/23/17 10:31> Date of Encounter: 11/23/17 Time of Encounter: 10:15 - Assessment and plan (1) GI bleed Current Visit: Yes Status: Acute Assessment and plan: INR 2.4, had 2 units ffp this am. Will repeat INR later today, if less than 2 may proceed with EGD. Denies any active bleeding, BP and Hgb stable. Qualifiers: GI bleed type/associated pathology: melena Qualified Code(s): K92.1 - Melena (2) Transaminitis Current Visit: Yes Status: Acute Assessment and plan: Hida scan shows decreased ejection fraction, may be related to gallbladder disease as pt is having acute RUQ pain and tenderness. Dr Arellano consulted and phone call made. - Time Spent With Patient Total time spent is greater than 50% in coordination of care (as documented) at patient's floor/unit and/or counseling patient: - Subjective Interval history: Pt awake in bed, denies any BM or bleeding. He is complaining of increased abdominal bloating and pain, very tender to RUQ. - Constitutional Vitals: Temp Pulse Resp BP Pulse Ox 98.2 F 60 20 126/71 94 11/23/17 09:42 11/23/17 10:00 11/23/17 10:00 11/23/17 10:00 11/23/17 10:00 Exam: CONSTITUTIONAL:~alert, no acute distress.~HEAD:~normocephalic.~EYES:~no jaundice.~NECK:~no obvious swelling.~HEART:~regular rate and rhythm, no murmurs. ~LUNGS:~bilateral fair air entry.~ABDOMEN:~softly distended, exquisitely tender RUQ, ~RECTAL EXAM:~Deferred.~EXTREMITIES:~no clubbing, cyanosis or edema.~SKIN:~ no stigmata of chronic liver disease.~NEUROLOGIC:~no obvious focal defect.~~~~ Results - Labs CBC & Chem 7: 11/23/17 03:51 11/23/17 03:51 Labs: Last Result Calcium 9.4 mg/dL (8.6-10.3) 11/23/17 03:51 Troponin I 0.45 ng/mL (< 0.04) H* 11/22/17 11:50 Entire Visit Hgb 8.4 g/dL (12.9-16.9) L 11/23/17 03:51 Hct 27.1 % (37.5-50.1) L 11/23/17 03:51 PT 26.5 Seconds (9.4-12.1) H 11/23/17 03:51 Total Bilirubin 2.2 mg/dL (0.3-1.0) H 11/23/17 03:51 AST 375 Units/L (13-39) H 11/23/17 03:51 ALT > 500 Units/L (7-52) H 11/23/17 03:51 Lipase 49 Units/L (11-82) 11/21/17 18:54 - ABG ABG results: PT/INR, D-dimer PT 26.5 Seconds (9.4-12.1) H 11/23/17 03:51 - Impressions Impressions Gallbladder Ultrasound 11/22/17 08:00 IMPRESSION: Abnormal appearance to the gallbladder which is nonspecific, with equivocal findings for acute cholecystitis. There is diffuse hypoechoic wall thickening along with some mild pericholecystic fluid, as well as some sludge and likely some small stones within the gallbladder; however, there was a negative sonographic Caro's sign and the gallbladder is not distended. Nuclear medicine hepatobiliary scan with gallbladder ejection fraction may be of use for further evaluation. Redemonstration of some simple benign renal cysts to the liver without necessity for continued follow-up. However, there is also a hypoechoic focus noted to the left lobe of the liver measuring maximally 4.9 cm. This was low-attenuation on prior CT exams and was not FDG avid on recent PET-CT exam, and is felt to be compatible with benign etiology, possibly a complex cyst. Attention can be paid on follow-up to this focus to assure stability versus further evaluation with MRI with and without contrast. D/ / 11/22/2017 10:13:37 Ayden Alonso MD / [email or web address] Interpreting Provider: Ayden Alonso MD Liver Scan Nuclear Medicine 11/22/17 10:57 IMPRESSION: Negative HIDA scan with normal ejection fraction D/ / Sheng Caicedo MD / Sheng Caicedo MD Interpreting Provider: Sheng Caicedo MD - VTE Documentation of Mechanical Device: Intermittent pneumatic compression device Consult Discharge Plan - Plan Referrals: Galen Thurman MD [Primary Care Provider] - 12/01/17 9:45 am Lisette Conley MD [Partnered Physician] - (SENT WEB REQUEST ON @ [phone]) <Lisette Conley - Last Filed: 11/24/17 08:01> Date of Encounter: 11/23/17 Time of Encounter: 17:15 - Time Spent With Patient Total time spent is greater than 50% in coordination of care (as documented) at patient's floor/unit and/or counseling patient: - Constitutional Vitals: Temp Pulse Resp BP Pulse Ox 98.9 F 79 19 137/1 94 11/24/17 07:25 11/24/17 07:25 11/24/17 07:25 11/24/17 07:25 11/24/17 07:25 Results - Labs CBC & Chem 7: 11/24/17 04:40 11/24/17 04:40 Labs: Last Result Calcium 9.9 mg/dL (8.6-10.3) 11/24/17 04:40 Troponin I 0.45 ng/mL (< 0.04) H* 11/22/17 11:50 Entire Visit Hgb 8.7 g/dL (12.9-16.9) L 11/24/17 04:40 Hct 28.1 % (37.5-50.1) L 11/24/17 04:40 PT 16.2 Seconds (9.4-12.1) H 11/24/17 04:40 Total Bilirubin 2.6 mg/dL (0.3-1.0) H 11/24/17 04:40 AST 191 Units/L (13-39) H 11/24/17 04:40 ALT > 500 Units/L (7-52) H 11/24/17 04:40 Lipase 49 Units/L (11-82) 11/21/17 18:54 - ABG ABG results: PT/INR, D-dimer PT 16.2 Seconds (9.4-12.1) H 11/24/17 04:40 - Attending Attestation I have personally performed a face to face evaluation on this patient. I have reviewed and agree with the care plan. History and Exam by me shows:
--- NOTE | 2017-11-23 10:54 | Event Note ---
Date of Encounter: 11/23/17 Time of Encounter: 10:15 Mr. Posadas is admitted to ICU for acute GI bleed with Hgb 4.6 upon presentation, elevated INR on xarelto and meloxicam, elevated troponin and transaminitis. GI consult reviewed, he is planned for EGD today if INR <2. Mr. Posadas is patient of Dr. Jim/Dr. Conroy with adenocaricnoma of the right lung and is s/p SBRT from 08/25/2017-09/03/2017. He had an already scheduled follow up visit today with Dr. Jim to discuss PET scan results. Discussed PET scan with Dr. Jim. PET scan on 11/17/2017 reveals "decreased size and FDG avidity of the medial right lower lobe nodule consistent with at least partial metabolic response, No increased FDG activity associated with mediastinal lymph nodes, decreased in size since the recent CT scan, likely reactive, No new metabolically active metastatic disease, 4.6 x 4.2 cm abdominal aortic aneurysm with no significant change since 07/28/2017." Discussed results as above with patient at bedside today which shows good response to SBRT treatment and no new disease. He will plan to follow up further with radiation on an outpatient basis along with repeat imaging in 3 months time.
[2017-11-23] MEDS ORDERED: Ketorolac 15 MG/ML VIAL IVP PRN (11:04)
[2017-11-23] MEDS ORDERED: *HR* Phytonadione 5 MG TABLET PO ONE (11:04)
[2017-11-23] MEDS ORDERED: Simethicone 80 MG TAB.CHEW PO ONE (11:06)
[2017-11-23] MEDS: 0.9 % Sodium Chloride 1,000 ML IVC SCH (11:25)
[2017-11-23 14:48] LABS: INR 1.9; Prothrombin Time 20.3 Seconds (9.4-12.1)
[2017-11-23 15:01] LABS: Hematocrit 27.5 % (37.5-50.1); Hemoglobin 8.4 g/dL (12.9-16.9)
--- NOTE | 2017-11-23 15:11 | General Surgery Consult Note ---
Date of Encounter: 11/23/17 Time of Encounter: 14:30 History of Present Illness Reason for consult: gallstones Requesting physician: Senait Bland History of present illness: 72-year-old male admitted after presenting to [facility] ED, 11/21/2017, with abdominal pain and evidence of an upper GI bleed. Patient is on Xarelto for Atrial fibrillation and taking meloxicam for arthritic complaints. On arrival in the emergency department the patient was hypotensive with melanotic stool and severely anemic with a hemoglobin of 4.6. INR was 5.5 (PT 61.8). The patient has been admitted. He has transfused 5 units packed red blood cells and 6 units fresh frozen plasma. Vitamin K has also been administered. CT of the abdomen and pelvis demonstrated multiple findings, however, the findings that ultimately prompted a surgical consultation include a contracted gallbladder with infiltration of the gallbladder wall. USGB showed circumferential hypoechoic gallbladder wall thickening measuring up to 1.5 cm with sludge and small stones contained within the gallbladder. Pericholecystic fluid was also described but the sonographic Caro sign was negative. There was no associated ductal dilatation. An HB scan completed last evening showed prompt homogeneous uptake radiotracer by the liver with normal excretion of the radiotracer into the biliary system. Clearance of blood for activity appeared appropriate. The gallbladder and small bowel was visualized and in appropriate sequence and time. The gallbladder ejection fraction was measured at 66% and did not reproduce the patient's symptoms. Surgical consultation was placed today due to persisting complaints of right upper quadrant abdominal pain accompanied by elevated LFTs including a bilirubin of 2.2, AST of 375 (previously as high as 720), persistent elevated ALT greater than 500. Alkaline phosphatase has remained within normal limits approximately 98. Consultation for the upper GI bleed has been placed with gastroenterology, however, endoscopy as you to be performed pending reversal of the patient's anticoagulation. Past medical history: Coronary artery disease, status post CABG June 2017. At the time of this cardiac surgery, right lung cancer was diagnosed, and treated with XRT. The patient's describes significant regression of the size of the tumor with this therapy. The patient has a stable abdominal aortic aneurysm; atrial fibrillation for which she is chronically anticoagulated ; COPD, hyperlipidemia, hypertension, and a history of prior NM. Allergies: No known drug allergies Medications: Amlodipine/atorvastatin 5/40 one by mouth daily Aspirin 81 mg by mouth daily Lisinopril/hydrochlorothiazide 20/12.5 one by mouth daily Meloxicam 15 mg by mouth daily Metoprolol XL 25 mg by mouth twice a day Rivaroxaban 20 mg by mouth daily Atorvastatin 80 mg by mouth daily at bedtime Hydrocodone with acetaminophen 5/325 one every 4 hours as needed for pain (prescribed 06/2017) Trazodone 50 mg by mouth daily at bedtime Social history: The patient is , lives with his spouse; he admits tobacco use, 1 pack daily for 55 years; he quit June 2017. On physical examination: Age-appropriate male resting comfortably in his hospital bed. He is complaining of right upper quadrant abdominal pain. He has been afebrile, currently 98.1; pulse 63-72 (beta blockers have been held); respiratory rate 18-20, blood pressure 161/98. The patient did not appear jaundiced despite his bilirubin of 2.2; skin was warm, with normal turgor Lungs: Clear bilaterally; minimal right-sided abdominal pain on deep inspiration Cardiac: Regular rate despite history of atrial fibrillation Abdomen distended, tender in the right upper quadrant just lateral to the midclavicular line along the costal margin. There was no obvious rebound or other peritoneal signs; bowel sounds were hypoactive Extremities: No obvious clubbing, cyanosis or edema. Laboratories - most recent show white count 8.7, hemoglobin 8.4, hematocrit 27.5. Platelet count 242,000. PT obtained during this dictation 20.3, INR 1.9 Electrolytes within normal limits; BUN has improved to 37, creatinine has improved to 1.38; eGFR improved to 51 Impression: A 72-year-old male, admitted 11/21/17, with abdominal pain and evidence of upper GI bleed. The patient was supratherapeutic, INR 5.5, which has been corrected to current level of 1.9 Patient most likely has biliary colic related to cholelithiasis without evidence acute cholecystitis per Hb scan Awaiting evaluation and treatment by Gastroenterology to address the upper GI bleed History of coronary artery disease with prior history of NM; status post CABG 2 in June 2017 History of right lower lobe lung cancer History of abdominal aortic aneurysm History of atrial fibrillation for which the patient is anticoagulated - the anticoagulation is likely exacerbating the UGI hemorrhage History of significant tobacco use ([id number]) with resultant COPD Hyperlipidemia and hypertension Plan: Awaiting evaluation and treatment by gastroenterology Cholecystectomy when UGI hemorrhage controlled and anticoagulation sufficiently reversed. Recommend INR less than 1.5 to proceed with surgery. The patient is a good candidate for laparoscopic cholecystectomy but on lengthy discussion with the patient and his , they are aware open cholecystectomy may become necessary. If the GI bleeding is not endoscopically controlled, patient may require gastrotomy, possible partial gastrectomy with coincidental cholecystectomy. Risks of surgery include hemorrhage, infection, intra-abdominal abscess , injury to adjacent ducts, vessels, organs, bowel; respiratory failure/ pneumonia; cardiac dysrhythmia/recurrent NM. Thank you for this consultation; I will follow along with you. Past Med Surg Social Fam HX - Past Medical History Medical history: arthritis, atrial fibrillation, cancer, COPD, hyperlipidemia, hypertension, myocardial infarction Psychiatric history: no psych history - Past Surgical History Surgical History: no surgical history - Social History Smoking Status: Former smoker Smokeless Tobacco Status: No Alcohol use: none Drug use: none - Family History Mother Adopted: No Hx Family Cancer: Yes Father Adopted: No Family Member Ethnicity: Non- Living Status: Hx Family Cardiac Disorders: Yes Hx Family Endocrine Disorder: Yes Hx Family Neuromuscular Disorders: No Hx Family Neurologic Disorders: No Hx Family HEENT Disorders: No Hx Family Autoimmune Disorders: No Medications and Allergies Aspirin [Lo-Dose Aspirin EC] 81 mg PO DAILY 06/08/17 [History] Lisinopril-HCTZ 20-12.5 [Prinzide 20-12.5] 1 each PO DAILY 06/08/17 [History] Meloxicam [Mobic] 15 mg PO DAILY 06/08/17 [History] Rivaroxaban [Xarelto] 20 mg PO DAILY 06/08/17 [History] traZODone [TraZODone] 50 mg PO HS 07/13/17 [History] Metoprolol [Lopressor] 25 mg PO BID 11/22/17 [History] rOPINIRole [Requip] 0.25 mg PO HS 11/22/17 [History] Amlodipine/Atorvastatin [Caduet 5 mg-80 mg Tablet] 1 tab PO DAILY 11/23/17 [ History] 3 Allergy/AdvReac Type Severity Reaction Status Date / Time No Known Allergies Allergy Verified 10/28/17 14:00 Review of Systems All systems PM: The remainder of the systems were reviewed and are negative General Surgery Exam Initial Vital Signs Temp Pulse Resp BP Pulse Ox 98.1 F 53 16 103/51 94 11/21/17 17:56 11/21/17 17:56 11/21/17 17:56 11/21/17 17:56 11/21/17 17:56 Exam Initial Vital Signs Temp Pulse Resp BP Pulse Ox 98.1 F 53 16 103/51 94 11/21/17 17:56 11/21/17 17:56 11/21/17 17:56 11/21/17 17:56 11/21/17 17:56 Results - Labs 11/23/17 14:15 11/23/17 03:51 Abnormal lab results RBC 3.47 M/mcL (4.19-5.50) L 11/23/17 03:51 Hgb 8.4 g/dL (12.9-16.9) L 11/23/17 14:15 Hct 27.5 % (37.5-50.1) L 11/23/17 14:15 MCV 78.1 fL (83.0-100.0) L 11/23/17 03:51 MCH 24.2 pg (28.0-33.3) L 11/23/17 03:51 MCHC 31.0 g/dL (31.6-35.5) L 11/23/17 03:51 RDW 18.0 % (11.5-14.5) H 11/23/17 03:51 Nucleated RBCs/100 WBC 1.0 /100 WBC (0) H 11/23/17 03:51 Large Platelets Present (Not Present) A 11/21/17 18:54 Polychromasia 1+ (Not Present) A 11/21/17 18:54 Hypochromasia Present (Not Present) A 11/21/17 18:54 Poikilocytosis 1+ (Not Present) A 11/21/17 18:54 Anisocytosis 2+ (Not Present) A 11/21/17 18:54 Macrocytosis Present (Not Present) A 11/21/17 18:54 Ovalocytes 1+ (Not Present) A 11/21/17 18:54 PT 20.3 Seconds (9.4-12.1) H 11/23/17 14:15 APTT 40.8 Seconds (26.0-36.0) H 11/21/17 19:47 BUN 37 mg/dL (8-23) H 11/23/17 03:51 Creatinine 1.38 mg/dL (0.70-1.30) H 11/23/17 03:51 Est GFR (Non-Af Amer) 51 (> 60) L 11/23/17 03:51 BUN/Creatinine Ratio 27 (6-26) H 11/23/17 03:51 Venous Ioniz Calcium 1.14 mmol/L (1.15-1.35) L 11/23/17 07:32 Phosphorus 2.4 mg/dL (2.7-4.5) L 11/23/17 03:51 Total Bilirubin 2.2 mg/dL (0.3-1.0) H 11/23/17 03:51 Direct Bilirubin 0.7 mg/dL (0.0-0.2) H 11/23/17 03:51 Indirect Bilirubin 1.5 mg/dL (0.0-1.2) H 11/23/17 03:51 AST 375 Units/L (13-39) H 11/23/17 03:51 ALT > 500 Units/L (7-52) H 11/23/17 03:51 Troponin I 0.45 ng/mL (< 0.04) H* 11/22/17 11:50 Serum Total Protein 5.8 g/dL (6.4-8.9) L 11/23/17 03:51 Globulin 2.1 g/dL (2.4-3.5) L 11/23/17 03:51 Diabetes panel 11/23/17 11/23/17 Range/Units 03:51 03:51 Sodium 140 (136-145) mEq/L Potassium 4.0 (3.5-5.1) mEq/L Chloride 107 (98-107) mEq/L Carbon Dioxide 27 (23-29) mEq/L BUN 37 H (8-23) mg/dL Creatinine 1.38 H (0.70-1.30) mg/dL Glucose 90 (70-105) mg/dL Calcium 9.4 (8.6-10.3) mg/dL AST 375 H (13-39) Units/L ALT > 500 H (7-52) Units/L Alkaline Phosphatase 98 (34-104) Units/L Albumin 3.7 (3.5-5.7) g/dL Calcium panel 11/23/17 11/23/17 Range/Units 03:51 03:51 Calcium 9.4 (8.6-10.3) mg/dL Phosphorus 2.4 L (2.7-4.5) mg/dL Albumin 3.7 (3.5-5.7) g/dL Pituitary panel 11/23/17 Range/Units 03:51 Sodium 140 (136-145) mEq/L Potassium 4.0 (3.5-5.1) mEq/L Chloride 107 (98-107) mEq/L Carbon Dioxide 27 (23-29) mEq/L BUN 37 H (8-23) mg/dL Creatinine 1.38 H (0.70-1.30) mg/dL Glucose 90 (70-105) mg/dL Calcium 9.4 (8.6-10.3) mg/dL Adrenal panel 11/23/17 11/23/17 Range/Units 03:51 03:51 Sodium 140 (136-145) mEq/L Potassium 4.0 (3.5-5.1) mEq/L Chloride 107 (98-107) mEq/L Carbon Dioxide 27 (23-29) mEq/L BUN 37 H (8-23) mg/dL Creatinine 1.38 H (0.70-1.30) mg/dL Glucose 90 (70-105) mg/dL Calcium 9.4 (8.6-10.3) mg/dL Total Bilirubin 2.2 H (0.3-1.0) mg/dL AST 375 H (13-39) Units/L ALT > 500 H (7-52) Units/L Alkaline Phosphatase 98 (34-104) Units/L Albumin 3.7 (3.5-5.7) g/dL All other labs normal. Consult Discharge Plan - Plan Referrals: Galen Thurman MD [Primary Care Provider] - 12/01/17 9:45 am Lisette Conley MD [Partnered Physician] - (SENT WEB REQUEST ON @ [phone])
--- NOTE | 2017-11-23 15:58 | Internal Med Progress Note ---
Date of Encounter: 11/24/17 Time of Encounter: 11:00 - Assessment and plan (1) Anemia Current Visit: Yes Status: Acute Assessment and plan: Suspect secondary to GI bleed GI following with plans for EGD Patient hemodynamically stable Will continue to monitor H&H Qualifiers: Anemia type: other cause Other causes of anemia: acute posthemorrhagic Qualified Code(s): D62 - Acute posthemorrhagic anemia (2) Elevated INR Current Visit: Yes Status: Acute Assessment and plan: Patient with supratherapeutic INR Reversing with vitamin K (3) Transaminitis Current Visit: Yes Status: Acute Assessment and plan: Gi and surgery following. Plan for cholecystectomy once UGIB is controlled by GI (4) CAD (coronary artery disease) Current Visit: Yes Status: Acute Assessment and plan: s/p CABG in june 2017. Will optimize H&H and continue home meds Qualifiers: Coronary Disease-Associated Artery/Lesion type: [place] artery [place] vs. transplanted heart: [place] heart Associated angina: without angina Qualified Code(s): I25.10 - Atherosclerotic heart disease of [place] coronary artery without angina pectoris (5) HTN (hypertension) Current Visit: Yes Status: Acute Qualifiers: Hypertension type: essential hypertension Qualified Code(s): I10 - Essential (primary) hypertension (6) AAA (abdominal aortic aneurysm) Current Visit: Yes Status: Chronic Assessment and plan: Patient with known 4.8 cm aortic abdominal aneurysm Control blood pressures Qualifiers: Presence of rupture: without rupture Qualified Code(s): I71.4 - Abdominal aortic aneurysm, without rupture (7) Atrial fibrillation Current Visit: Yes Status: Chronic Assessment and plan: xarelto on hold. Currently rate controlled Qualifiers: Atrial fibrillation type: unspecified Qualified Code(s): I48.91 - Unspecified atrial fibrillation - Time Spent With Patient Total time spent is greater than 50% in coordination of care (as documented) at patient's floor/unit and/or counseling patient: - Subjective Interval history: Patient reports of generalized abdominal discomfort this morning Hemoglobin stable status post 5 units of packed red blood cells INR still elevated after 5 mg of vitamin K 1; awaiting for INR less than 2 for GI to proceed with EGD workup of GI bleeding - Constitutional Vitals: Temp Pulse Resp BP Pulse Ox 98.3 F 65 20 153/80 93 11/23/17 11:58 11/23/17 14:00 04/24/18 14:00 11/23/17 14:00 11/23/17 14:00 General appearance: Present: A&O X 3, pleasant, no acute distress, answers questions appropriately - Respiratory Respiratory exam: Present: CTAB. Absent: accessory muscle use, rales, rhonchi, wheezes - Cardiovascular Cardiovascular exam: Present: RRR, +S1, +S2. Absent: diastolic murmur, gallop, rubs, systolic murmur - GI/Abdominal GI/Abdominal exam: Present: soft, tenderness (Generalized abdominal tenderness) . Absent: distended Internal Medicine: Result - Labs CBC & Chem 7: 11/24/17 04:40 11/24/17 04:40 Labs: Short CBC 11/23/17 11/23/17 Range/Units 03:51 14:15 WBC 8.7 (4.3-11.1) K/mcL Hgb 8.4 L 8.4 L (12.9-16.9) g/dL Hct 27.1 L 27.5 L (37.5-50.1) % Plt Count 242 (140-400) K/mcL Neutrophils # 5.4 (1.6-8.9) K/mcL BMP 11/23/17 03:51 Sodium 140 Potassium 4.0 Chloride 107 Carbon Dioxide 27 BUN 37 H Creatinine 1.38 H Glucose 90 Calcium 9.4 Liver Function 11/23/17 Range/Units 03:51 Total Bilirubin 2.2 H (0.3-1.0) mg/dL Direct Bilirubin 0.7 H (0.0-0.2) mg/dL AST 375 H (13-39) Units/L ALT > 500 H (7-52) Units/L Alkaline Phosphatase 98 (34-104) Units/L Albumin 3.7 (3.5-5.7) g/dL - ABG Interpretation ABG results: PT/INR, D-dimer PT 20.3 Seconds (9.4-12.1) H 11/23/17 14:15 - VTE Documentation of Mechanical Device: Intermittent pneumatic compression device Consult Discharge Plan - Plan Referrals: Galen Thurman MD [Primary Care Provider] - 12/01/17 9:45 am Lisette Conley MD [Partnered Physician] - (SENT WEB REQUEST ON @ [phone])
[2017-11-23] MEDS ORDERED: *HR* Midazolam HCl 5 MG/5 ML VIAL IVP ONE (17:06)
[2017-11-23] MEDS ORDERED: *HR* FentaNYL (PF) 100 MCG/2 ML VIAL ONE (17:06)
[2017-11-23] MEDS ORDERED: *HR* Midazolam HCl 2 MG/2 ML VIAL IVP ONE (17:12)
[2017-11-23] MEDS ORDERED: *HR* FentaNYL (PF) 100 MCG/2 ML VIAL IVP ONE (17:12)
[2017-11-23] MEDS ORDERED: Tetracaine/Benzocaine/Butamben 200MG/SPRAY (100SPY/BOT) MM ONE (17:12)
[2017-11-23] MEDS ORDERED: Simethicone 40 MG/0.6 ML MLS IR ONE (17:12)
--- NOTE | 2017-11-23 17:13 | Pre-Sedation Evaluation ---
Pre-sedation evaluation - Pre-sedation checklist Date of procedure: 11/23/17 Procedure: lung biopsy Recent Vitals: Last Vital Signs Temp 98.1 F 11/23/17 15:41 Pulse 74 11/23/17 17:01 Resp 16 11/23/17 17:01 BP 160/79 11/23/17 17:01 Pulse Ox 99 11/23/17 17:01 H&P (including ROS) documented in medical record: Yes Previous reaction to sedatives/anesthetics: No Dietary Status: NPO after Midnight Dentition: No loose teeth or bridges ASA Classification *see protocol: CLASS III-Severe systemic disease Plan of Care: Pt appropriate candidate for procedure/moderate/conscious sedation , Risks/benefits of procedure/sedation discussed w/ patient/family
[2017-11-24] MEDS: Pantoprazole 40 MG in 0.9 % Sodium Chloride Mini Bag 100 ML IVC SCH ×2 (03:48→09:55)
[2017-11-24] MEDS: 0.9 % Sodium Chloride 1,000 ML IVC SCH (04:00)
[2017-11-24 05:05] LABS: Basophils % 0.3 %; Eosinophils # 0.4 K/mcL (0.0-0.6); Eosinophils % 4.1 %; Hematocrit 28.1 % (37.5-50.1); Hemoglobin 8.7 g/dL (12.9-16.9); Immature Granulocytes % 0.4 % (0-4); Lymphocytes # 1.2 K/mcL (0.6-4.6); Mean Corpuscular Hemoglobin 23.9 pg (28.0-33.3); Mean Corpuscular Volume 77.2 fL (83.0-100.0); Mean Platelet Volume 10.6 fL (9.4-12.4); Monocytes # 1.2 K/mcL (0.0-1.3); Monocytes % 12.7 %; Neutrophils # 6.5 K/mcL (1.6-8.9); Nucleated Red Blood Cells 0.2 /100 WBC (0); Platelet Count 253 K/mcL (140-400); Red Blood Count 3.64 M/mcL (4.19-5.50); Red Cell Distribution Width 18.3 % (11.5-14.5); Segmented Neutrophils % 69.5 %
[2017-11-24 05:12] LABS: INR 1.5; Prothrombin Time 16.2 Seconds (9.4-12.1)
[2017-11-24 05:20] LABS: BUN/Creatinine Ratio 22 (6-26); Blood Urea Nitrogen 25 mg/dL (8-23); Calcium 9.9 mg/dL (8.6-10.3); Carbon Dioxide 26 mEq/L (23-29); Chloride 109 mEq/L (98-107); Glucose 89 mg/dL (70-105); Osmolality,Calculated 300 (280-300); Phosphorous 3.3 mg/dL (2.7-4.5); Potassium 3.6 mEq/L (3.5-5.1); Sodium 143 mEq/L (136-145); eGFR For African Americans > 60 (> 60); eGFR For Non-African Americans > 60 (> 60)
[2017-11-24 05:21] LABS: Alanine Aminotransferase > 500 Units/L (7-52); Albumin 4.2 g/dL (3.5-5.7); Albumin/Globulin Ratio 1.8 (1.1-2.2); Alkaline Phosphatase 133 Units/L (34-104); Aspartate Amino Transferase 191 Units/L (13-39); Bilirubin,Direct 0.6 mg/dL (0.0-0.2); Bilirubin,Total 2.6 mg/dL (0.3-1.0); Globulin 2.3 g/dL (2.4-3.5); Total Protein 6.5 g/dL (6.4-8.9)
--- NOTE | 2017-11-24 09:12 | Internal Med Progress Note ---
Date of Encounter: 11/24/17 Time of Encounter: 09:00 - Assessment and plan (1) GI bleed Current Visit: Yes Status: Acute Assessment and plan: s/p transfusion of PRBC and FFP. Hemoglobin and INR 8.7 and 1.5 today. EGD done showing no acute bleed. D/C protonix drip and start on po protonix. Plan for cholecystectomy Qualifiers: GI bleed type/associated pathology: melena Qualified Code(s): K92.1 - Melena (2) Anemia Current Visit: Yes Status: Acute Assessment and plan: See plan for GI bleed. continue to monitor CBC Qualifiers: Anemia type: other cause Other causes of anemia: acute posthemorrhagic Qualified Code(s): D62 - Acute posthemorrhagic anemia (3) Acute kidney injury Current Visit: Yes Status: Acute Assessment and plan: Resolving with IV fluids and volume resuscitation (4) CAD (coronary artery disease) Current Visit: Yes Status: Acute Assessment and plan: s/p CABG in june 2017. Optimize CBC. Denies chest pain or SOB Qualifiers: Coronary Disease-Associated Artery/Lesion type: [place] artery [place] vs. transplanted heart: [place] heart Associated angina: without angina Qualified Code(s): I25.10 - Atherosclerotic heart disease of [place] coronary artery without angina pectoris (5) Elevated INR Current Visit: Yes Status: Acute Assessment and plan: Resolved s/p FFP and vitamin K (6) Transaminitis Current Visit: Yes Status: Acute Assessment and plan: Gi and surgery following. Plan for cholecystectomy once UGIB is controlled by GI (7) Atrial fibrillation Current Visit: Yes Status: Chronic Assessment and plan: xarelto on hold. Currently rate controlled Qualifiers: Atrial fibrillation type: unspecified Qualified Code(s): I48.91 - Unspecified atrial fibrillation - Time Spent With Patient Total time spent is greater than 50% in coordination of care (as documented) at patient's floor/unit and/or counseling patient: - Subjective Interval history: No acute events overnight - Constitutional Vitals: Temp Pulse Resp BP Pulse Ox 98.9 F 79 19 137/1 94 11/24/17 07:25 11/24/17 08:06 11/24/17 07:25 11/24/17 07:25 11/24/17 07:25 General appearance: Present: A&O X 3, pleasant, no acute distress, answers questions appropriately - Head Head exam: Present: atraumatic, normocephalic - Neck Neck exam general surgery: Present: supple, trachea midline. Absent: lymphadenopathy - Respiratory Respiratory exam: Present: CTAB. Absent: accessory muscle use, rales, rhonchi, wheezes - GI/Abdominal GI/Abdominal exam: Present: normal bowel sounds, soft, no peritoneal signs. Absent: distended, tenderness - Extremities Exam Extremities exam: Present: warm, radial pulses palpable and symmetrical. Absent : calf tenderness, cyanotic, pedal edema - Neurological Exam Neurological exam: Present: CN II-XII intact, oriented X3, no focal deficits. Absent: pronater drift, facial droop, speech deficit Internal Medicine: Result - Labs CBC & Chem 7: 11/24/17 04:40 11/24/17 04:40 Labs: Short CBC 11/23/17 11/24/17 Range/Units 14:15 04:40 WBC 9.4 (4.3-11.1) K/mcL Hgb 8.4 L 8.7 L (12.9-16.9) g/dL Hct 27.5 L 28.1 L (37.5-50.1) % Plt Count 253 (140-400) K/mcL Neutrophils # 6.5 (1.6-8.9) K/mcL BMP 11/24/17 04:40 Sodium 143 Potassium 3.6 Chloride 109 H Carbon Dioxide 26 BUN 25 H Creatinine 1.16 Glucose 89 Calcium 9.9 Liver Function 11/24/17 Range/Units 04:40 Total Bilirubin 2.6 H (0.3-1.0) mg/dL Direct Bilirubin 0.6 H (0.0-0.2) mg/dL AST 191 H (13-39) Units/L ALT > 500 H (7-52) Units/L Alkaline Phosphatase 133 H (34-104) Units/L Albumin 4.2 (3.5-5.7) g/dL - ABG Interpretation ABG results: PT/INR, D-dimer PT 16.2 Seconds (9.4-12.1) H 11/24/17 04:40 - VTE Documentation of Mechanical Device: Intermittent pneumatic compression device Consult Discharge Plan - Plan Referrals: Galen Thurman MD [Primary Care Provider] - 12/01/17 9:45 am Lisette Conley MD [Partnered Physician] - (SENT WEB REQUEST ON @ [phone])
--- NOTE | 2017-11-24 10:39 | Cardiology Progress Note ---
<Vinayak Hernandez - Last Filed: 11/24/17 11:42> Date of Encounter: 11/24/17 Time of Encounter: 10:20 Assessment and Plan (1) Elevated troponin Current Visit: Yes Status: Acute Trop elevated to 0.45 - pt denies chest pain - suspect secondary to severe anemia, GI bleed, and VICTORINO No further cardiac work-up at this time Pre-op: Patient is a Moderate risk for surgery Case discussed with Dr. Fonseca (2) CAD (coronary artery disease) Current Visit: Yes Status: Acute Severe multivessel disease s/p CABG in Jun 2017 Continue medical therapy as able Qualifiers: Coronary Disease-Associated Artery/Lesion type: [place] artery [place] vs. transplanted heart: [place] heart Associated angina: without angina Qualified Code(s): I25.10 - Atherosclerotic heart disease of [place] coronary artery without angina pectoris (3) Atrial fibrillation Current Visit: Yes Status: Chronic Currently NSR - s/p MAZE procedure CHADSVASc = 3 (HTN, vascular disease, age) Agree with holding Xarelto for now - pt and do not want to restart Xarelto , however it would be recommended to remain on anticoagulation when able Recommend restarting BB - no longer bradycardia. BP has been elevated Qualifiers: Atrial fibrillation type: unspecified Qualified Code(s): I48.91 - Unspecified atrial fibrillation (4) HTN (hypertension) Current Visit: Yes Status: Acute Continue home meds as able Recommend restarting BB Qualifiers: Hypertension type: essential hypertension Qualified Code(s): I10 - Essential (primary) hypertension (5) HLD (hyperlipidemia) Current Visit: Yes Status: Acute Continue statin Qualifiers: Hyperlipidemia type: unspecified Qualified Code(s): E78.5 - Hyperlipidemia , unspecified (6) GI bleed Current Visit: Yes Status: Acute Management per primary and GI - no evidence of active bleeding Surgery now planning for cholecystectomy once INR < 1.5 Qualifiers: GI bleed type/associated pathology: melena Qualified Code(s): K92.1 - Melena (7) AAA (abdominal aortic aneurysm) Current Visit: Yes Status: Chronic CT shows 4.8cm infrarenal AAA Qualifiers: Presence of rupture: without rupture Qualified Code(s): I71.4 - Abdominal aortic aneurysm, without rupture (8) Lung cancer Current Visit: Yes Status: Chronic Adenocarcinoma right lung. Follows with oncology - s/p radiation. No chemotherapy Qualifiers: Laterality: right Lung location: lower lobe of lung Qualified Code(s): C34.31 - Malignant neoplasm of lower lobe, right bronchus or lung Discussion w patient/family: The assessment and plan as outlined above was discussed with the patient and/or family members who expressed understanding and agreement. All questions were answered. Thank you for involving us in the care of your patient. Please call with any questions. Subjective Principal diagnosis: GI bleed Interval history: Pt seen and examined. Reports diffuse abdominal pain - awaiting further surgical evaluation and likely cholecystectomy. He denies other symptoms. Continues to deny chest pain, dyspnea, diaphoresis, jaw pain, arm pain, or N/V. Objective Vital Signs, Last 4 Hours Temp Pulse Resp BP Pulse Ox 11/24/17 08:06 79 11/24/17 07:25 98.9 F 79 19 137/1 94 General: Conversant, No Apparent Distress HEENT: Atraumatic, Normocephaly, Mucus Membranes Moist Neck: No JVD, Normal carotid pulses Cardiac: Reg Rate and Rhythm, Normal S1 and S2, No Murmur Lungs: Normal Breath Sounds, No Wheeze, Rales, Rhonchi Neuro: Alert and responsive, No focal deficits noted Abdomen: Soft, Other (Diffuse tenderness) Skin: No rashes noted on visualized skin Musculoskeletal: No Chest Wall Tenderness Extremities: No Clubbing, No Cyanosis, No Edema, Normal Pulses Results 11/24/17 04:40 11/24/17 04:40 Lab Results 11/23/17 11/23/17 11/24/17 14:15 14:15 04:40 WBC 9.4 Hgb 8.4 L 8.7 L Hct 27.5 L 28.1 L Plt Count 253 INR 1.9 Sodium Potassium Chloride Carbon Dioxide BUN Creatinine Glucose Calcium Magnesium Total Bilirubin AST ALT Alkaline Phosphatase 11/24/17 11/24/17 11/24/17 04:40 04:40 04:40 WBC Hgb Hct Plt Count INR 1.5 Sodium 143 Potassium 3.6 Chloride 109 H Carbon Dioxide 26 BUN 25 H Creatinine 1.16 Glucose 89 Calcium 9.9 Magnesium 2.0 Total Bilirubin 2.6 H AST 191 H ALT > 500 H Alkaline Phosphatase 133 H - VTE Documentation of Mechanical Device: Intermittent pneumatic compression device Consult Discharge Plan - Plan Referrals: Galen Thurman MD [Primary Care Provider] - 12/01/17 9:45 am Lisette Conley MD [Partnered Physician] - (SENT WEB REQUEST ON @ [phone]) <RaymundoWesly Vaca - Last Filed: 11/24/17 13:56> Date of Encounter: 11/24/17 Assessment and Plan Discussion w patient/family: The assessment and plan as outlined above was discussed with the patient and/or family members who expressed understanding and agreement. All questions were answered. Thank you for involving us in the care of your patient. Please call with any questions. Objective Vital Signs, Last 4 Hours Temp Pulse Resp BP Pulse Ox 11/24/17 11:32 98.6 F 85 18 131/80 97 Results 11/24/17 04:40 11/24/17 04:40 Lab Results 11/23/17 11/23/17 11/24/17 14:15 14:15 04:40 WBC 9.4 Hgb 8.4 L 8.7 L Hct 27.5 L 28.1 L Plt Count 253 INR 1.9 Sodium Potassium Chloride Carbon Dioxide BUN Creatinine Glucose Calcium Magnesium Total Bilirubin AST ALT Alkaline Phosphatase 11/24/17 11/24/17 11/24/17 04:40 04:40 04:40 WBC Hgb Hct Plt Count INR 1.5 Sodium 143 Potassium 3.6 Chloride 109 H Carbon Dioxide 26 BUN 25 H Creatinine 1.16 Glucose 89 Calcium 9.9 Magnesium 2.0 Total Bilirubin 2.6 H AST 191 H ALT > 500 H Alkaline Phosphatase 133 H Attestation Statement - Attestation Attestation: I examined this patient and my medical decision-making was reviewed with the Resident Physician. I agree with the documented findings, disposition and treatment plan as described except to the extent set forth below. CC: right upper quadrant pain. Pt complaining of right upper quadrant pain, worse after meals, lasts thirty minutes, resolves spontaneously. He reports heart racing and skipping have resolved. PE: Pt seen and examined, agree with findings as documented. IMP/Plan: 1. RUQ pain, pt found to have cholelithisis, anticipates surgical intervention late today, pt is at moderate cardiovascular risk for planned procedure. 2. Stable Class 1 angina post CABG 3. CABG: severe triple vessel CAD, post CABG x 3 06/18 4. A fib with controlled ventricular response: on ASA, pt and refusing systemic anticoagulation for stroke risk reduction due to fear of bleeding issues, anticoag on hold pending surgical intervention. Will hold Xaralto for now, discuss again before discharge.
--- NOTE | 2017-11-24 12:59 | General Surgery Progress Note ---
Date of Encounter: 11/24/17 Time of Encounter: 12:57 Subjective Patient reports: feels better, still having pain, pain is less, tolerating a regular diet Narrative: General Surgery - Patient feeling better, hemodynamically stable. Still complaining of discomfort but is right upper quadrant abdominal pain is significantly diminished. Patient is tolerating a diet. EGD completed last PM - results available in the generated Provation report. The patient remains afebrile, currently 98.6; pulse 85, respirations 18, blood pressure 131/80. SPO2 on room air 97%. Lungs: Clear to auscultation; no obvious abdominal pain on deep inspiration Abdomen: Soft, minimal right upper quadrant tenderness. No obvious intra- abdominal masses. No rebound. Active bowel sounds. Laboratories: White count is 9.4, hemoglobin stable at 8.7, hematocrit 28.1; platelet count 255,000. PT 16.2; INR 1.5 Electrolytes notable for potassium borderline low at 3.6; chloride 109; BUN has improved to 25, creatinine has returned to normal range, 1.16. Bilirubin continues to increase 2.6; AST has improved to 191; ALT remains greater than 500; alkaline phosphatase has increased to 133 Impression: Upper GI bleed appears to be controlled with reversal of anticoagulated state. EGD notable for many nonbleeding cratered gastric ulcers with no described stigmata of bleeding. Biopsies obtained during EGD are pending. Esophagus and duodenum were described as normal. Cholelithiasis with likely biliary colic - patient ready to proceed with surgery. Cardiac assessment appreciated/patient deemed stable for cholecystectomy History of coronary artery disease with prior [place]; status post CABG 2, 2016. Atrial fibrillation with history of chronic anticoagulation; anticoagulated state reversed. Current PT 16.2, INR 1.5 History of right lower lobe lung cancer History of abdominal aortic aneurysm Plan: Discussed with the patient and his . He is ready to proceed with cholecystectomy. The patient is currently eating lunch; surgery will be deferred until a.m. The patient is a reasonable candidate for laparoscopic cholecystectomy but understands an open cholecystectomy may become necessary Risks were discussed and are enumerated on the surgical consent Both the patient and his have expressed understanding and are willing to proceed Laparoscopic cholecystectomy with possible intraoperative cholangiogram, possible open cholecystectomy scheduled in a.m. The patient will be NPO after 12MN except for meds H&H, PT/INR will be rechecked in a.m. in preparation for surgery Objective Vital Signs - Last 8 Hours Temp Pulse Resp BP Pulse Ox 11/24/17 11:32 98.6 F 85 18 131/80 97 11/24/17 08:06 79 11/24/17 07:25 98.9 F 79 19 137/1 94 11/24/17 05:07 98.7 F 80 16 151/76 98 Intake and Output 11/23/17 11/24/17 11/24/17 23:59 07:59 15:59 Intake Total 330 / 330 1100 / 1100 340 / 340 Output Total 0 / 0 Balance 330 / 330 1100 / 1100 340 / 340 Intake: IV Fluids 100 / 100 1100 / 1100 100 / 100 0.9 % Sodium Chloride 1,000 ML 1000 / 1000 @ 25 mls/hr IVC .Q24H KRANTHI Rx#: [id number] Protonix 40 MG In 0.9 % Sodium 100 / 100 100 / 100 100 / 100 Chloride (Mini-Bag +) 100 ML @ 20 mls/hr IVC .Q5H KRANTHI Rx#: [id number] Oral 230 / 230 240 / 240 Output: Urine 0 / 0 Other: Meal Dinner Breakfast Percent of Meal Consumed 100% 100% Blood Glucose* 107 - Labs 11/24/17 04:40 11/24/17 04:40 Diabetes panel 11/24/17 11/24/17 Range/Units 04:40 04:40 Sodium 143 (136-145) mEq/L Potassium 3.6 (3.5-5.1) mEq/L Chloride 109 H (98-107) mEq/L Carbon Dioxide 26 (23-29) mEq/L BUN 25 H (8-23) mg/dL Creatinine 1.16 (0.70-1.30) mg/dL Glucose 89 (70-105) mg/dL Calcium 9.9 (8.6-10.3) mg/dL AST 191 H (13-39) Units/L ALT > 500 H (7-52) Units/L Alkaline Phosphatase 133 H (34-104) Units/L Albumin 4.2 (3.5-5.7) g/dL Calcium panel 11/24/17 11/24/17 Range/Units 04:40 04:40 Calcium 9.9 (8.6-10.3) mg/dL Phosphorus 3.3 (2.7-4.5) mg/dL Albumin 4.2 (3.5-5.7) g/dL Pituitary panel 11/24/17 Range/Units 04:40 Sodium 143 (136-145) mEq/L Potassium 3.6 (3.5-5.1) mEq/L Chloride 109 H (98-107) mEq/L Carbon Dioxide 26 (23-29) mEq/L BUN 25 H (8-23) mg/dL Creatinine 1.16 (0.70-1.30) mg/dL Glucose 89 (70-105) mg/dL Calcium 9.9 (8.6-10.3) mg/dL Adrenal panel 11/24/17 11/24/17 Range/Units 04:40 04:40 Sodium 143 (136-145) mEq/L Potassium 3.6 (3.5-5.1) mEq/L Chloride 109 H (98-107) mEq/L Carbon Dioxide 26 (23-29) mEq/L BUN 25 H (8-23) mg/dL Creatinine 1.16 (0.70-1.30) mg/dL Glucose 89 (70-105) mg/dL Calcium 9.9 (8.6-10.3) mg/dL Total Bilirubin 2.6 H (0.3-1.0) mg/dL AST 191 H (13-39) Units/L ALT > 500 H (7-52) Units/L Alkaline Phosphatase 133 H (34-104) Units/L Albumin 4.2 (3.5-5.7) g/dL - VTE Documentation of Mechanical Device: Intermittent pneumatic compression device Consult Discharge Plan - Plan Referrals: Galen Thurman MD [Primary Care Provider] - 12/01/17 9:45 am Lisette Conley MD [Partnered Physician] - (SENT WEB REQUEST ON @ [phone])
--- NOTE | 2017-11-24 20:57 | Anesthesia Evaluation PreOp ---
Date of Encounter: 11/24/17 Time of Encounter: 19:10 - Past History Planned Operation: Lap Cholecystectomy Cardiac History: HTN, Hyperlipidemia, Arrhythmia (AFib was on ASA and Xarelto, stopped due to GI bleed 11-21), Cardiac Surgery (CABG X2 , denies Pacemaker), Other (AAA, 4.8 cm infrarenal stable) Pulmonary History: Other (Lung Ca, Adenocarcinoma Rt lung) VISUAL COORDINATOR History: Denies Any Significant HX Other Medical History: Other (Admitted 11-21 for GI bleed, transfused 3 units PRBC) Anesthesia History: No Prior Anesthetic Complications Alcohol Use: none Drug use: none Medications and Allergies Aspirin [Lo-Dose Aspirin EC] 81 mg PO DAILY 06/08/17 [History] Lisinopril-HCTZ 20-12.5 [Prinzide 20-12.5] 1 each PO DAILY 06/08/17 [History] Meloxicam [Mobic] 15 mg PO DAILY 06/08/17 [History] Rivaroxaban [Xarelto] 20 mg PO DAILY 06/08/17 [History] traZODone [TraZODone] 50 mg PO HS 07/13/17 [History] Metoprolol [Lopressor] 25 mg PO BID 11/22/17 [History] rOPINIRole [Requip] 0.25 mg PO HS 11/22/17 [History] Amlodipine/Atorvastatin [Caduet 5 mg-80 mg Tablet] 1 tab PO DAILY 11/23/17 [ History] 3 Allergy/AdvReac Type Severity Reaction Status Date / Time No Known Allergies Allergy Verified 10/28/17 14:00 - Meds/Allergy Pre-op Review Medications Reviewed: Yes Allergies Reviewed: Yes Beta Blockers on Current Med List: Yes Anesthesia Results - Labs 11/24/17 04:40 11/24/17 04:40 Laboratory Tests 11/21/17 11/24/17 11/24/17 19:47 04:40 04:40 Hgb 8.7 L Hct 28.1 L Plt Count 253 PT 16.2 H INR 1.5 APTT 40.8 H Sodium Potassium BUN Creatinine 11/24/17 04:40 Hgb Hct Plt Count PT INR APTT Sodium 143 Potassium 3.6 BUN 25 H Creatinine 1.16 - Imaging Additional studies: Heart Cath showed EF 45% Anesthesia Exam O2 Sat Weight 79.4 kg O2 Sat by Pulse Oximetry 98 O2 Sat by Pulse Oximetry 97 O2 Sat by Pulse Oximetry 94 O2 Sat by Pulse Oximetry 98 O2 Sat by Pulse Oximetry 97 Vital Signs Temp Pulse Resp BP Pulse Ox 98.1 F 53 16 103/51 94 11/21/17 17:56 11/21/17 17:56 11/21/17 17:56 11/21/17 17:56 11/21/17 17:56 Height: 5'10 Weight: 175 lbs NPO (# of Hours): MN Pain Scale: 0 - HEENT Pupil (Motor): Pupils equal, EOMI Mallampati: II Teeth: Normal Oral Opening: Greater than 3 - VISUAL COORDINATOR LOC: Oriented VISUAL COORDINATOR Motor: Normal RUE, Normal LUE, Normal RLE, Normal LLE, Normal Face VISUAL COORDINATOR Sensory: Normal: RUE, LUE, RLE, LLE, Face - Cardiac Rhythm: Regular Murmur: None JVD: No Carotid Bruit: No - Pulmonary Breath Sounds: bilateral Clear Respiratory Effort: Symmetrical Anesthesia Assess/Plan ASA Score: 4 (HTN Severe Anemia AFib CAD AA Lung Ca) Modified Livan Scale for Level of Consciousness: Cooperative, oriented, and tranquil Anesthetic Plan: General Monitoring Plan: Standard Monitors Recovery Plan: PACU (Discussed GA, agrees to proceed)
[2017-11-25 02:14] LABS: Basophils % 0.3 %; Eosinophils # 0.5 K/mcL (0.0-0.6); Eosinophils % 5.3 %; Hematocrit 26.5 % (37.5-50.1); Hemoglobin 8.2 g/dL (12.9-16.9); Immature Granulocytes % 0.3 % (0-4); Lymphocytes # 1.6 K/mcL (0.6-4.6); Lymphocytes % 18.6 %; Mean Corpuscular HGB Conc 30.9 g/dL (31.6-35.5); Mean Corpuscular Volume 77.7 fL (83.0-100.0); Monocytes # 1.2 K/mcL (0.0-1.3); Monocytes % 14.3 %; Neutrophils # 5.3 K/mcL (1.6-8.9); Platelet Count 246 K/mcL (140-400); Red Blood Count 3.41 M/mcL (4.19-5.50); Red Cell Distribution Width 18.6 % (11.5-14.5); Segmented Neutrophils % 61.2 %
[2017-11-25 02:18] LABS: VBG Ionized Calcium 1.24 mmol/L (1.15-1.35)
[2017-11-25 02:20] LABS: INR 1.4; Prothrombin Time 14.8 Seconds (9.4-12.1)
[2017-11-25 02:52] LABS: Alanine Aminotransferase > 500 Units/L (7-52); Albumin 3.9 g/dL (3.5-5.7); Albumin/Globulin Ratio 1.4 (1.1-2.2); Alkaline Phosphatase 125 Units/L (34-104); Aspartate Amino Transferase 93 Units/L (13-39); Bilirubin,Direct 0.7 mg/dL (0.0-0.2); Bilirubin,Indirect 1.6 mg/dL (0.0-1.2); Bilirubin,Total 2.3 mg/dL (0.3-1.0); Globulin 2.7 g/dL (2.4-3.5); Total Protein 6.6 g/dL (6.4-8.9)
[2017-11-25] MEDS ORDERED: Pantoprazole 40 MG VIAL IVP SCH (07:30)
[2017-11-25] MEDS ORDERED: Bupivacaine/EPI 1:200k 0.25%PF 10 ML VIAL INFILT ONE (07:49)
[2017-11-25] MEDS ORDERED: Isovue-300 50 ML VIAL IVP ONE (07:49)
[2017-11-25] MEDS ORDERED: Ondansetron 4 MG/2 ML VIAL ONE ×2 (07:58→10:11)
[2017-11-25] MEDS ORDERED: *HR* Succinylcholine 200 MG/10 ML VIAL IVP ONE (07:58)
[2017-11-25] MEDS ORDERED: *HR* FentaNYL (PF) 100 MCG/2 ML VIAL ONE ×2 (07:58→09:24)
[2017-11-25] MEDS ORDERED: Lidocaine -MPF 4% 5 ML AMPUL ONE ×2 (07:58→08:03)
[2017-11-25] MEDS ORDERED: *HR* Rocuronium Bromide 50 MG/5 ML VIAL ONE (07:58)
[2017-11-25] MEDS ORDERED: Neostigmine Methylsulfate 3 MG/3 ML SYRINGE ONE (07:58)
[2017-11-25] MEDS ORDERED: Lidocaine -MPF 2% 2 ML VIAL ONE (07:59)
[2017-11-25] MEDS ORDERED: EPHEDrine 50 MG/ML VIAL ONE (08:01)
[2017-11-25] MEDS ORDERED: *HR* Phenylephrine 10 MG/ML VIAL ONE (08:01)
[2017-11-25] MEDS ORDERED: *HR* Etomidate 40 MG/20 ML VIAL IVP ONE (08:03)
[2017-11-25] MEDS ORDERED: CeFAZolin Syringe 2,000MG/20 ML SYR IVPB ONE (08:06)
[2017-11-25] MEDS ORDERED: *HR* Metoprolol 5 MG/5 ML VIAL IVP ONE (08:47)
[2017-11-25] MEDS ORDERED: *HR* Labetalol 20 MG/4 ML SYRINGE IVP PRN (08:50)
[2017-11-25] MEDS ORDERED: MORPHINE SUL Oral CONC 10 MG/0.5 ML ORAL.SYG SL PRN (08:50)
[2017-11-25] MEDS ORDERED: *HR* OxyCODONE Immed Rel 5 MG TABLET PO PRN ×2 (08:50→10:08)
[2017-11-25] MEDS ORDERED: ceFAZolin 2,000 MG in Water for inj. (sterile) 20 ML 20 ML IVP ONE (09:00)
[2017-11-25] MEDS ORDERED: NiCARdipine 2.5 MG/10 ML Syringe IVPB ONE (09:01)
--- NOTE | 2017-11-25 09:35 | Operative Note ---
Date of procedure: 11/25/17 Pre-op diagnosis: Cholelithiasis, biliary colic Post-op diagnosis: same (Liver lesion highly suspicious for metastatic disease) Procedure: Laparoscopic cholecystectomy, intraoperative cholangiogram with Kwaku-Cut biopsies superficial liver mass Complications: None apparent Anesthesia: GETA Local Anesthetics: 0.25% Sensorcaine HCL with Epinephrine 1:200,000 SubQ (cc) ( 20 mL), Isovue 300 Intravenous (cc) (10 mL) Surgeon: Kevon Arellano Was there an payroll assistant present: No Estimated blood loss (cc): 15 IV fluids (cc): 400 Specimen: gallbladder, TruCut biopsies liver mass Condition: stable Disposition: PACU Procedure in Detail: The patient was brought to the operating room where he was placed supine on the procedure table. Patient was appropriately identified to person and procedure. The accuracy of this information was confirmed by the patient and the procedure team. The patient was then intubated and anesthetized under the supervision of Dr Nikunj Davis. The abdomen was prepped and draped in usual sterile fashion. Examination under anesthesia demonstrated no obviously palpable gallbladder or other intra-abdominal masses. Several milliliters of 0.25% bupivacaine with 1 200,000 epinephrine was infiltrated into the infraumbilical skin. A small transverse incision was made and extended to the fascia. The fascia was grasped and elevated. Additional bupivacaine with epinephrine was infiltrated. She was then incised, an 11 mm Xcel port was established. The rigid laparoscope was placed within the obturator to visualize passage through the layers of the anterior abdominal wall. When the abdominal cavity was accessed, the obturator was replaced by the rigid laparoscope, the abdomen was insufflated with gaseous carbon dioxide. No obvious visible injury from establishing this port. Under direct visualization 3 additional ports were placed along the right costal margin. Each site was infiltrated with bupivacaine with epinephrine solution. Gallbladder was grasped and retracted. The radiologically reported wall thickening was not obvious. A superficial neoplastic appearing mass was evident inferior lateral portion of the left lobe of the liver. The hepatoduodenal ligament was dissected and the cystic duct skeletonized. The cystic duct was clipped near the infundibulum the gallbladder. A separate percutaneous insertion site, a Taut cholangiogram catheter was introduced. The cystic duct was incised, the cholangiogram catheter inserted and advanced to the duodenum. Using C-arm fluoroscopy a cholangiogram was then completed by administering contrast and withdrawing the catheter into the hepatobiliary tree. There were no filling defects with free flow of contrast into the duodenum. Dr. Lance Rodney, [facility], provided an intraoperative reading describing no obvious pathology. The cholangiogram catheter was removed. The cystic duct was clipped and divided. The cystic artery was then identified, clipped, and divided. The gallbladder was dissected from the liver bed using the Ethicon harmonic freddy. Once from the liver bed, the gallbladder was placed in an endoscopic pouch and removed through the infraumbilical opening. There were no palpable stones within the gallbladder despite the radiologic description of cholelithiasis. The gallbladder was retrieved and sent to pathology. The liver mass described in the lateral portion of the left lobe of the liver was biopsied using a 14- gauge Kwaku-Cut needle passed through one of the laparoscopic port sites. 3 passes yielded satisfactory :"cores" for pathologic evaluation. These biopsies were sent to pathology as a separate specimen. The liver bed was inspected for adequate hemostasis. Herbie was applied to the gallbladder fossa due to the patient 's history of UGI and chronic anticoagulation. The pneumoperitoneum was evacuated, the instrumentation removed. The fascia of the infraorbital opening was closed with interrupted [id number] 0 Vicryl using S retractors. The port sites were closed with subcuticular 4-0 Vicryl. The incisions were sealed with Dermabond dermal adhesive. The patient was taken to recovery in stable condition. Needle, sponge, and instrument counts were correct at the close of the case. Total volume of 0.25% bupivacaine with 1-200, 000 epinephrine, 20 mL.
--- NOTE | 2017-11-25 10:06 | Anesthesia Evaluation Post Op ---
Date of Encounter: 11/25/17 Time of Encounter: 10:05 - Vital Signs Vital Signs: Vital Signs/O2 Sat, Most Current Temp Pulse Resp BP Pulse Ox 97.9 F 67 16 154/84 97 11/25/17 09:31 11/25/17 09:51 11/25/17 09:51 11/25/17 09:51 11/25/17 09:51 - Lungs Lungs: Clear Ascult./Percussion - Airway Airway: Non-obstructed - Cardiovascular Regular Rate - Mental Status Mental Status: Alert & Oriented, Answers Appropriately - Pain Pain Scale: 5 Pain Scale used: Numeric (1 - 10) - Nausea Vomiting Nausea Vomiting: Not Present - Hydration Hydration: Ice chips, Has not voided - Discharge PostOp Status: Transfer Patient to floor
[2017-11-25] MEDS ORDERED: Naloxone 0.4 MG/ML INJ IVP PRN (10:08)
[2017-11-25] MEDS ORDERED: Ringers Solution, Lactated 500 ML IVC ONE (10:08)
[2017-11-25] MEDS ORDERED: Ondansetron 4 MG/2 ML VIAL IVP PRN (10:08)
[2017-11-25] MEDS ORDERED: Acetaminophen 325 MG TABLET PO PRN (10:08)
[2017-11-25] MEDS ORDERED: Potassium Phosphate 44 MEQ in 0.9 % Sodium Chloride 250 ML IVPB PRN (10:08)
--- NOTE | 2017-11-25 10:23 | Internal Med Progress Note ---
Date of Encounter: 11/25/17 Time of Encounter: 10:00 - Assessment and plan (1) GI bleed Current Visit: Yes Status: Acute Assessment and plan: s/p transfusion of PRBC and FFP. Hemoglobin and INR 8.7 and 1.5 today. EGD done showing no acute bleed. D/C protonix drip and start on po protonix. s/p cholecystectomy this am Qualifiers: GI bleed type/associated pathology: melena Qualified Code(s): K92.1 - Melena (2) Anemia Current Visit: Yes Status: Acute Assessment and plan: See plan for GI bleed. continue to monitor CBC Qualifiers: Anemia type: other cause Other causes of anemia: acute posthemorrhagic Qualified Code(s): D62 - Acute posthemorrhagic anemia (3) Acute kidney injury Current Visit: Yes Status: Acute Assessment and plan: Resolving with IV fluids and volume resuscitation (4) CAD (coronary artery disease) Current Visit: Yes Status: Acute Assessment and plan: s/p CABG in june 2017. Optimize CBC. Denies chest pain or SOB Qualifiers: Coronary Disease-Associated Artery/Lesion type: [place] artery [place] vs. transplanted heart: [place] heart Associated angina: without angina Qualified Code(s): I25.10 - Atherosclerotic heart disease of [place] coronary artery without angina pectoris (5) Elevated INR Current Visit: Yes Status: Acute Assessment and plan: Resolved s/p FFP and vitamin K. Resume xarelto once clear from Gi and cardiology standpoint (6) Transaminitis Current Visit: Yes Status: Acute Assessment and plan: Gi and surgery following. Plan for cholecystectomy once UGIB is controlled by GI (7) Atrial fibrillation Current Visit: Yes Status: Chronic Assessment and plan: xarelto on hold. Currently rate controlled. Will plan to resume xarelto once clear by cardiology Qualifiers: Atrial fibrillation type: unspecified Qualified Code(s): I48.91 - Unspecified atrial fibrillation (8) Gall bladder stones Current Visit: Yes Status: Acute Assessment and plan: Gall bladder stones with biliary colic s/p cholecystectomy this am - Time Spent With Patient Total time spent is greater than 50% in coordination of care (as documented) at patient's floor/unit and/or counseling patient: - Subjective Interval history: No acute events overnight - Constitutional Vitals: Temp Pulse Resp BP Pulse Ox 97.9 F 67 16 154/84 97 11/25/17 09:31 11/25/17 09:51 11/25/17 09:51 11/25/17 09:51 11/25/17 09:51 General appearance: Present: A&O X 3, pleasant, no acute distress, answers questions appropriately - Head Head exam: Present: atraumatic, normocephalic - Eye Eye exam: Present: PERRL, conjuntiva pink, sclera anicteric Pupils: Present: PERRL - Neck Neck exam general surgery: Present: supple, trachea midline. Absent: lymphadenopathy - Respiratory Respiratory exam: Present: CTAB. Absent: accessory muscle use, rales, rhonchi, wheezes - Cardiovascular Cardiovascular exam: Present: RRR, +S1, +S2. Absent: diastolic murmur, gallop, rubs, systolic murmur - GI/Abdominal GI/Abdominal exam: Present: normal bowel sounds, soft, no peritoneal signs. Absent: distended, tenderness - Extremities Exam Extremities exam: Present: warm, radial pulses palpable and symmetrical. Absent : calf tenderness, cyanotic, pedal edema - Neurological Exam Neurological exam: Present: CN II-XII intact, oriented X3, no focal deficits. Absent: pronater drift, facial droop, speech deficit - Skin Skin exam: Present: dry, intact Internal Medicine: Result - Labs CBC & Chem 7: 11/25/17 01:42 11/24/17 04:40 Labs: Short CBC 11/25/17 Range/Units 01:42 WBC 8.7 (4.3-11.1) K/mcL Hgb 8.2 L (12.9-16.9) g/dL Hct 26.5 L (37.5-50.1) % Plt Count 246 (140-400) K/mcL Neutrophils # 5.3 (1.6-8.9) K/mcL Liver Function 11/25/17 Range/Units 01:42 Total Bilirubin 2.3 H (0.3-1.0) mg/dL Direct Bilirubin 0.7 H (0.0-0.2) mg/dL AST 93 H (13-39) Units/L ALT > 500 H (7-52) Units/L Alkaline Phosphatase 125 H (34-104) Units/L Albumin 3.9 (3.5-5.7) g/dL - ABG Interpretation ABG results: PT/INR, D-dimer PT 14.8 Seconds (9.4-12.1) H 11/25/17 01:42 - Impressions Impressions Cholangiogram,Operative 11/25/17 00:00 IMPRESSION: Negative for obvious retained common bile duct stone D/ / Lance Rodney MD / Lance Rodney MD Interpreting Provider: Lance Rodney MD - VTE Documentation of Mechanical Device: Intermittent pneumatic compression device Consult Discharge Plan - Plan Referrals: Galen Thurman MD [Primary Care Provider] - 12/01/17 9:45 am Kevon Arellano MD [Non-Partnered Physician] - 12/02/17 3:20 pm Lisette Conley MD [Partnered Physician] - (SENT WEB REQUEST ON @ [phone])
[2017-11-25] MEDS: 0.9 % Sodium Chloride 1,000 ML IVC SCH (10:27)
[2017-11-25] MEDS ORDERED: *HR* Morphine 2 MG/ML SYRINGE IVP PRN (10:52)
[2017-11-25] MEDS: *HR* OxyCODONE/APAP 5/325 TABLET PO PRN ×2 (13:39→23:30)
--- NOTE | 2017-11-25 16:33 | Electrocardiograph Report ---
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
[2017-11-25] MEDS ORDERED: traZODone 50 MG TABLET PO SCH (21:00)
[2017-11-26] MEDS: 0.9 % Sodium Chloride 1,000 ML IVC SCH (04:11)
[2017-11-26 05:13] LABS: Basophils % 0.3 %; Eosinophils # 0.3 K/mcL (0.0-0.6); Eosinophils % 4.1 %; Hematocrit 26.3 % (37.5-50.1); Hemoglobin 8.1 g/dL (12.9-16.9); Immature Granulocytes % 0.4 % (0-4); Lymphocytes # 1.4 K/mcL (0.6-4.6); Lymphocytes % 17.8 %; Mean Corpuscular HGB Conc 30.8 g/dL (31.6-35.5); Mean Corpuscular Hemoglobin 24.4 pg (28.0-33.3); Mean Corpuscular Volume 79.2 fL (83.0-100.0); Mean Platelet Volume 10.7 fL (9.4-12.4); Monocytes % 12.9 %; Neutrophils # 4.9 K/mcL (1.6-8.9); Platelet Count 243 K/mcL (140-400); Red Blood Count 3.32 M/mcL (4.19-5.50); Red Cell Distribution Width 18.5 % (11.5-14.5); Segmented Neutrophils % 64.5 %
[2017-11-26 05:36] LABS: Alanine Aminotransferase 278 Units/L (7-52); Albumin 3.5 g/dL (3.5-5.7); Albumin/Globulin Ratio 1.6 (1.1-2.2); Alkaline Phosphatase 117 Units/L (34-104); Aspartate Amino Transferase 39 Units/L (13-39); BUN/Creatinine Ratio 13 (6-26); Bilirubin,Total 1.4 mg/dL (0.3-1.0); Blood Urea Nitrogen 14 mg/dL (8-23); Calcium 9.4 mg/dL (8.6-10.3); Carbon Dioxide 28 mEq/L (23-29); Chloride 106 mEq/L (98-107); Globulin 2.2 g/dL (2.4-3.5); Glucose 154 mg/dL (70-105); Osmolality,Calculated 296 (280-300); Potassium 3.5 mEq/L (3.5-5.1); Sodium 141 mEq/L (136-145); Total Protein 5.7 g/dL (6.4-8.9); eGFR For African Americans > 60 (> 60); eGFR For Non-African Americans > 60 (> 60)
[2017-11-26] MEDS ORDERED: Pantoprazole 40 MG VIAL IVP SCH (07:30)
[2017-11-26] MEDS ORDERED: AMLODIPINE PO SCH (09:00)
[2017-11-26] MEDS ORDERED: ATORVASTATIN PO SCH (09:00)
[2017-11-26] MEDS ORDERED: [UNRECOGNIZED DRUG - OTHER] PO SCH (09:00)
[2017-11-26] MEDS ORDERED: amLODIPine 5 MG TABLET PO SCH (09:00)
[2017-11-26] MEDS ORDERED: Simethicone 80 MG TAB.CHEW PO PRN (09:51)
--- NOTE | 2017-11-26 11:06 | Internal Med Progress Note ---
Date of Encounter: 11/26/17 Time of Encounter: 11:00 - Assessment and plan (1) GI bleed Current Visit: Yes Status: Acute Assessment and plan: s/p transfusion of PRBC and FFP. Hemoglobin and INR WNL. EGD done showing many gastric ulcers no acute bleed. D/C protonix drip and start on po protonix. s/p cholecystectomy in last 24 hrs Qualifiers: GI bleed type/associated pathology: melena Qualified Code(s): K92.1 - Melena (2) Transaminitis Current Visit: Yes Status: Acute Assessment and plan: Gi and surgery following. Pt is s/p EGD and cholecystectomy. LFTs trending dwon with supportive care. continue to monitor (3) Gall bladder stones Current Visit: Yes Status: Acute Assessment and plan: Gall bladder stones with biliary colic s/p cholecystectomy by surgery. Stable (4) Anemia Current Visit: Yes Status: Acute Assessment and plan: See plan for GI bleed. continue to monitor CBC Qualifiers: Anemia type: other cause Other causes of anemia: acute posthemorrhagic Qualified Code(s): D62 - Acute posthemorrhagic anemia (5) Acute kidney injury Current Visit: Yes Status: Acute Assessment and plan: Resolving with IV fluids and volume resuscitation (6) CAD (coronary artery disease) Current Visit: Yes Status: Acute Assessment and plan: s/p CABG in june 2017. Optimize CBC. Denies chest pain or SOB Qualifiers: Coronary Disease-Associated Artery/Lesion type: [place] artery [place] vs. transplanted heart: [place] heart Associated angina: without angina Qualified Code(s): I25.10 - Atherosclerotic heart disease of [place] coronary artery without angina pectoris (7) Elevated INR Current Visit: Yes Status: Acute Assessment and plan: Resolved s/p FFP and vitamin K. Resume xarelto once clear from Gi and cardiology standpoint. pt does not want to resume xarelto therapy. Appreciate cardiology input (8) Atrial fibrillation Current Visit: Yes Status: Chronic Assessment and plan: xarelto on hold. Currently rate controlled. Will plan to resume xarelto once clear by cardiology Qualifiers: Atrial fibrillation type: unspecified Qualified Code(s): I48.91 - Unspecified atrial fibrillation - Time Spent With Patient Total time spent is greater than 50% in coordination of care (as documented) at patient's floor/unit and/or counseling patient: - Subjective Interval history: No acute events overnight - Constitutional Vitals: Temp Pulse Resp BP Pulse Ox 98.2 F 67 16 123/67 96 11/26/17 08:13 11/26/17 08:13 11/26/17 08:13 11/26/17 08:13 11/26/17 08:13 General appearance: Present: A&O X 3, pleasant, no acute distress, answers questions appropriately - Head Head exam: Present: atraumatic, normocephalic - Eye Eye exam: Present: PERRL, conjuntiva pink, sclera anicteric Pupils: Present: PERRL - Neck Neck exam general surgery: Present: supple, trachea midline. Absent: lymphadenopathy - Respiratory Respiratory exam: Present: CTAB. Absent: accessory muscle use, rales, rhonchi, wheezes - Cardiovascular Cardiovascular exam: Present: RRR, +S1, +S2. Absent: diastolic murmur, gallop, rubs, systolic murmur - GI/Abdominal GI/Abdominal exam: Present: normal bowel sounds, soft, no peritoneal signs. Absent: distended, tenderness - Extremities Exam Extremities exam: Present: warm, radial pulses palpable and symmetrical. Absent : calf tenderness, cyanotic, pedal edema - Neurological Exam Neurological exam: Present: CN II-XII intact, oriented X3, no focal deficits. Absent: pronater drift, facial droop, speech deficit - Skin Skin exam: Present: dry, intact Internal Medicine: Result - Labs CBC & Chem 7: 11/26/17 04:34 11/26/17 04:34 Labs: Short CBC 11/26/17 Range/Units 04:34 WBC 7.6 (4.3-11.1) K/mcL Hgb 8.1 L (12.9-16.9) g/dL Hct 26.3 L (37.5-50.1) % Plt Count 243 (140-400) K/mcL Neutrophils # 4.9 (1.6-8.9) K/mcL BMP 11/26/17 04:34 Sodium 141 Potassium 3.5 Chloride 106 Carbon Dioxide 28 BUN 14 Creatinine 1.08 Glucose 154 H Calcium 9.4 Liver Function 11/26/17 Range/Units 04:34 Total Bilirubin 1.4 H (0.3-1.0) mg/dL AST 39 (13-39) Units/L ALT 278 H (7-52) Units/L Alkaline Phosphatase 117 H (34-104) Units/L Albumin 3.5 (3.5-5.7) g/dL - ABG Interpretation ABG results: PT/INR, D-dimer PT 14.8 Seconds (9.4-12.1) H 11/25/17 01:42 - VTE Documentation of Mechanical Device: Intermittent pneumatic compression device Consult Discharge Plan - Plan Referrals: Galen Thurman MD [Primary Care Provider] - 12/01/17 9:45 am Kevon Arellano MD [Non-Partnered Physician] - 12/02/17 3:20 pm Lisette Conley MD [Partnered Physician] - (SENT WEB REQUEST ON @ [phone])
--- NOTE | 2017-11-26 11:43 | General Surgery Progress Note ---
Date of Encounter: 11/26/17 Time of Encounter: 11:20 Subjective Patient reports: feels better, still having pain Narrative: General Surgery - POD #1 Status post laparoscopic cholecystectomy, intraoperative cholangiogram and Kwaku-Cut biopsies superficial liver mass. Patient indicates that he is feeling well but still complaining of pain. Mild abdominal distention noted and no nausea vomiting. The patient is afebrile, currently 98.2; pulse 67 but irregular; respiratory rate 16, blood pressure 123/67. SPO2 on room air 96% Lungs: Bilaterally clear; no obvious abdominal pain on deep inspiration Cardiac: Slightly irregular rate Abdomen distended/tympanitic but soft, nontender. Active bowel sounds. No obvious intra-abdominal masses. No peritoneal signs. Port sites intact and healing well. During my bedside visit - patient passed flatus. Laboratories: White count 7.6; differential normal; hemoglobin 8.1, hematocrit 26.3. Platelet count 243,000. Electrolytes, BUN, creatinine within normal limits Total bilirubin has fallen to 1.4, AST normal at 39; ALT has improved to 278 and alkaline phosphatase 117. Intraoperative pathology still pending Impression: Postoperative day #1 status post laparoscopic cholecystectomy for apparent: Wall thickening, cholelithiasis and biliary colic. Operative findings did not verify the presence of wall thickening nor were stones detected but will await pathology evaluation. Patient feeling well and in satisfactory postoperative condition - mild to moderate abdominal distention, likely postoperative ileus. Patient is passing flatus and abdominal distention is expected to resolve as the patient continues to recover. No obvious recurrent upper GI bleed History of lung cancer - right lower lobe Suspected diastasis of the left lobe of the liver, biopsies pending Coronary artery disease status post CABG 2 in June 2017- cardiac status appears stable Anemia - most pronounced following recent upper GI hemorrhage. The upper GI hemorrhage was exacerbated due to Xarelto. Patient currently off anticoagulation and H&H stable since transfusions and reversal anticoagulation Objective Vital Signs - Last 8 Hours Temp Pulse Resp BP Pulse Ox 11/26/17 08:13 98.2 F 67 16 123/67 96 11/26/17 03:40 98.6 F 67 17 128/73 95 Intake and Output 11/25/17 11/26/17 11/26/17 23:59 07:59 15:59 Intake Total 680 / 680 1400 / 1400 480 / 480 Output Total 550 / 550 Balance 130 / 130 1400 / 1400 480 / 480 Intake: IV Fluids 1000 / 1000 0.9 % Sodium Chloride 1,000 ML 1000 / 1000 @ 25 mls/hr IVC .Q24H [facility] Rx#: [id number] Oral 680 / 680 400 / 400 480 / 480 Output: Urine 550 / 550 Other: Meal Dinner Breakfast Percent of Meal Consumed 50% 100% - Labs 11/26/17 04:34 11/26/17 04:34 Diabetes panel 11/26/17 Range/Units 04:34 Sodium 141 (136-145) mEq/L Potassium 3.5 (3.5-5.1) mEq/L Chloride 106 (98-107) mEq/L Carbon Dioxide 28 (23-29) mEq/L BUN 14 (8-23) mg/dL Creatinine 1.08 (0.70-1.30) mg/dL Glucose 154 H (70-105) mg/dL Calcium 9.4 (8.6-10.3) mg/dL AST 39 (13-39) Units/L ALT 278 H (7-52) Units/L Alkaline Phosphatase 117 H (34-104) Units/L Albumin 3.5 (3.5-5.7) g/dL Calcium panel 11/26/17 Range/Units 04:34 Calcium 9.4 (8.6-10.3) mg/dL Albumin 3.5 (3.5-5.7) g/dL Pituitary panel 11/26/17 Range/Units 04:34 Sodium 141 (136-145) mEq/L Potassium 3.5 (3.5-5.1) mEq/L Chloride 106 (98-107) mEq/L Carbon Dioxide 28 (23-29) mEq/L BUN 14 (8-23) mg/dL Creatinine 1.08 (0.70-1.30) mg/dL Glucose 154 H (70-105) mg/dL Calcium 9.4 (8.6-10.3) mg/dL Adrenal panel 11/26/17 Range/Units 04:34 Sodium 141 (136-145) mEq/L Potassium 3.5 (3.5-5.1) mEq/L Chloride 106 (98-107) mEq/L Carbon Dioxide 28 (23-29) mEq/L BUN 14 (8-23) mg/dL Creatinine 1.08 (0.70-1.30) mg/dL Glucose 154 H (70-105) mg/dL Calcium 9.4 (8.6-10.3) mg/dL Total Bilirubin 1.4 H (0.3-1.0) mg/dL AST 39 (13-39) Units/L ALT 278 H (7-52) Units/L Alkaline Phosphatase 117 H (34-104) Units/L Albumin 3.5 (3.5-5.7) g/dL - VTE Documentation of Mechanical Device: Intermittent pneumatic compression device Consult Discharge Plan - Plan Referrals: Galen Thurman MD [Primary Care Provider] - 12/01/17 9:45 am Kevon Arellano MD [Non-Partnered Physician] - 12/02/17 3:20 pm Lisette Conley MD [Partnered Physician] - (SENT WEB REQUEST ON @ [phone])
[2017-11-26 11:57] VITALS: BP 147/85
--- NOTE | 2017-11-26 13:04 | Event Note ---
<Vinayak Hernandez - Last Filed: 11/26/17 13:01> Date of Encounter: 11/26/17 Time of Encounter: 11:30 - Cardiology Event Note Discussed with the patient and his about need for anticoagulation. He is aware of the risks of not being on anticoagulation. He is aware that he could potentially convert into A. fib at any time without knowing. He still needs to be on anticoagulation long-term, however cardiology is ok with temporarily holding Xarelto in the setting of GI bleed and anemia. He will need to follow- up as an out-patient for further discussion about resuming Xarelto. <Devon Linares - Last Filed: 11/26/17 14:44> Date of Encounter: 11/26/17 - Cardiology Event Note I examined this patient and my medical decision-making was reviewed with the Resident Physician. I agree with the documented findings, disposition and treatment plan as described except to the extent set forth below.
--- NOTE | 2017-11-26 14:23 | Discharge Summary ---
- NOTES TO OUTPATIENT PROVIDER Notes to Outpatient Provider: Follow up with cardiology. Xarelto has been discontinued Orders not resulted at time of discharge: Pending orders 11/25/17 09:37 Surgical Pathology [PTH] Routine 11/27/17 04:00 Complete Blood Count [HEME] AM 0400 11/28/17 04:00 Complete Blood Count [HEME] AM 0400 11/29/17 04:00 Complete Blood Count [HEME] AM 04011/30/17 04:00 Complete Blood Count [HEME] AM 04012/01/17 04:00 Complete Blood Count [HEME] AM 0400 Date of Encounter: 11/26/17 Time of Encounter: 14:00 - Discharge Diagnosis (1) GI bleed Priority: Primary Status: Acute Assessment and Plan: s/p transfusion of PRBC and FFP. Hemoglobin and INR WNL. EGD done showing many gastric ulcers no acute bleed. D/C protonix drip and start on po protonix. s/p cholecystectomy in last 24 hrs. Plan to discharge on po protonix Qualifiers: GI bleed type/associated pathology: melena Qualified Code(s): K92.1 - Melena (2) Transaminitis Priority: Secondary Status: Acute Assessment and Plan: Gi and surgery following. Pt is s/p EGD and cholecystectomy. LFTs trending down with supportive care. continue to monitor (3) Gall bladder stones Priority: Secondary Status: Acute Assessment and Plan: Gall bladder stones with biliary colic s/p cholecystectomy by surgery. Stable (4) Anemia Priority: Secondary Status: Acute Assessment and Plan: See plan for GI bleed. continue to monitor CBC Qualifiers: Anemia type: other cause Other causes of anemia: acute posthemorrhagic Qualified Code(s): D62 - Acute posthemorrhagic anemia (5) Acute kidney injury Priority: Secondary Status: Acute Assessment and Plan: Resolving with IV fluids and volume resuscitation (6) CAD (coronary artery disease) Priority: Secondary Status: Acute Assessment and Plan: s/p CABG in june 2017. Optimize CBC. Denies chest pain or SOB Qualifiers: Coronary Disease-Associated Artery/Lesion type: [place] artery [place] vs. transplanted heart: [place] heart Associated angina: without angina Qualified Code(s): I25.10 - Atherosclerotic heart disease of [place] coronary artery without angina pectoris (7) Elevated INR Priority: Secondary Status: Acute Assessment and Plan: Resolved s/p FFP and vitamin K. Resume xarelto once clear from Gi and cardiology standpoint. pt does not want to resume xarelto therapy. Appreciate cardiology input (8) Atrial fibrillation Priority: Secondary Status: Chronic Assessment and Plan: xarelto on hold. Currently rate controlled. Xarelto has been held per cardiology recs for now as paient has been in sinus rhythm. Furthermore patient doesn't want to be on anticoagulation on any longer. Will follow up with cardiology outpt Qualifiers: Atrial fibrillation type: unspecified Qualified Code(s): I48.91 - Unspecified atrial fibrillation Hospital course: Mr. Posadas is a 72 year old male - Time Spent with Patient Total time spent providing and/or coordinating discharge services: - Discharge Medications Prescriptions: Omeprazole [PriLOSEC] 40 mg PO DAILY #30 cap Home Medications: Aspirin [Lo-Dose Aspirin EC] 81 mg PO DAILY 06/08/17 [History] Lisinopril-HCTZ 20-12.5 [Prinzide 20-12.5] 1 each PO DAILY 06/08/17 [History] traZODone [TraZODone] 50 mg PO HS 07/13/17 [History] Metoprolol [Lopressor] 25 mg PO BID 11/22/17 [History] rOPINIRole [Requip] 0.25 mg PO HS 11/22/17 [History] Amlodipine/Atorvastatin [Caduet 5 mg-80 mg Tablet] 1 tab PO DAILY 11/23/17 [ History] Omeprazole [PriLOSEC] 40 mg PO DAILY #30 cap 11/26/17 [Rx] Allergies/Adverse Reactions: 3 Allergy/AdvReac Type Severity Reaction Status Date / Time No Known Allergies Allergy Verified 10/28/17 14:00 Date of admission: 11/21/17 20:28 Primary care physician: Galen Thurman MD Consults: 11/21/17 20:47 Consult to Gastroenterology [CONS] Stat Consulting Provider: Gastroenterreba Monterroso Reason for Consult: GI bleed anemia Time Notified: 20:47 Call Completed: Yes 11/22/17 12:49 Consult to Cardiology [CONS] Routine Comment: Consulting Provider: Cardiology Kriss Reason for Consult: trop elevation, inCAD CABG Time Notified: 12:49 Call Completed: Yes 11/23/17 09:34 Consult to Surgery [CONS] Stat Consulting Provider: Surgery [facility] Reason for Consult: Patient had an abd. ultrasound and hida scan yesterday and is complaining of increased abdominal bloat and pain. Call Completed: Yes - Constitutional Vitals: Temp Pulse Resp BP Pulse Ox 98.6 F 67 16 147/85 96 11/26/17 11:38 11/26/17 08:13 11/26/17 11:38 11/26/17 11:38 11/26/17 11:38 General appearance: Present: A&O X 3, pleasant, no acute distress, answers questions appropriately - Patient Status Disposition: Home, Self-Care Condition: Good - Discharge Instructions Instructions: Pantoprazole (By mouth), Laparoscopic Cholecystectomy (DC) Follow Up With: Lisette Conley MD [Partnered Physician] - (SENT WEB REQUEST ON @ [id number]) - Diet and Activity Activity: increase activity as tolerated Diet: advance to your usual diet - VTE Documentation of Mechanical Device: Intermittent pneumatic compression device
== END 2017-11-26 14:57 | disposition home or self-care (01) | DRG 357 ==
LOC: EMEROO 17:48 → ICNU 20:28 → SUATTDRO 20:28 → ICNU 20:51 → 2NNU 11-23 15:26
PROVIDERS: ADMIT Emergency Medicine; ATTEND Student in an Organized Health Care Education/Training Program
PROC: ENDOEBX (2017-11-23 17:00)